=== PATIENT | female | born 1930 | race Caucasian/White ===

== ENCOUNTER 2018-03-12 12:05 | Inpatient (IN) ==
--- NOTE | 2018-03-12 12:50 | Emergency Department Note ---
Disposition Clinical Impression: Cellulitis Qualifiers: Site of cellulitis: extremity Site of cellulitis of extremity: upper extremity Laterality: left Qualified Code(s): L03.114 - Cellulitis of left upper limb Disposition: Admitted As Inpatient Condition: Good Referrals: Bekah Ames OVERLAY PLASTICIAN [Advanced Practice Nurse] - Forms: ED Satisfaction Letter Time of Disposition: 14:18 Extremity Problem HPI - General Chief complaint: ED Extremity Problem,Nontraumatic Stated complaint: Left hand cellulitis Time Seen by Provider: 03/12/18 12:09 Source: patient Limitations: no limitations, language barrier - History of Present Illness HPI Narrative: The patient is an 87-year-old female that sustained a fall 2 weeks ago where she fell into a wall, does not remember sustaining any cut. She noticed some swelling the next day which got worse over the next three days when she reported to the ED and was placed on Keflex, and was sent to the wound clinic. The wound clinic placed her on Bactrim, for presumed cellulitis. Yesterday she noted that she had an increase in pain and swelling she describes the pain as a throbbing ache with radiation up to her shoulder, severity of 10 out of 10/90. She states that she was seen by orthopedics this morning who performed an I&D on the swelling on her hand expressed a large amount of purulent fluid, re- dressed her wound and sent her over here to be admitted for IV antibiotics. She endorses some chills, headache that is on and off, some nausea without vomiting, some anorexia, some rhinorrhea with clear discharge she attributes to allergies, and some numbness in her thumb on her right hand that she states is from an earlier injury. She denies any abdominal pain, vomiting, diarrhea or constipation, chest pain, shortness of breath, or dizziness. Pain Scale: 4 - Related Data Home Medications Medication Instructions Recorded Confirmed Anastrozole [Arimidex] 1 mg PO DAILY 10/22/15 03/04/18 Diclofenac Sodium [Voltaren] 75 mg PO DAILY 10/22/15 03/08/18 Sertraline [Zoloft] 150 mg PO DAILY 10/22/15 03/08/18 Simvastatin [Zocor] 20 mg PO HS 10/22/15 03/08/18 amLODIPine [Norvasc] 5 mg PO DAILY 10/22/15 03/08/18 Buspirone HCl [Buspar] 7.5 mg PO BID 03/04/18 03/04/18 Calcium Carbonate/Vitamin D3 1 each PO BID 03/04/18 03/04/18 [Calcium 600 + Vit D Tablet] Cholecalciferol (Vitamin D3) 1,000 unit PO DAILY 03/04/18 03/08/18 [Vitamin D] Donepezil HCl [Aricept] 5 mg PO HS 03/04/18 03/08/18 Previous Rx's Medication Instructions Recorded Cephalexin [Keflex] 500 mg PO BID #14 capsule 02/27/18 Sulfamethoxazole/Trimeth DS 1 each PO BID #14 tablet 03/04/18 [Bactrim DS] Allergies Allergy/AdvReac Type Severity Reaction Status Date / Time No Known Allergies Allergy Verified 03/04/18 12:09 All systems ED: reviewed and negative except as stated. Review of Systems: As Per HPI Constitutional: Reports: chills. Denies: fever Cardiovascular: Denies: chest pain, dyspnea on exertion Respiratory: Denies: cough, dyspnea Gastrointestinal: Reports: nausea. Denies: abdominal pain, vomiting, diarrhea, constipation Neurological: Reports: headache (off and on not presently there) Past Medical History - Past Medical History Medical history: Reports: arthritis, hyperlipidemia, hypertension Psychiatric history: Reports: no psych history RETREAD BUILDER history: Reports: no RETREAD BUILDER history - Social History Smoking Status: Never smoker Smokeless Tobacco Status: No Alcohol use: Reports: none Drug use: Reports: none Physical Exam - General Limitations: no limitations, language barrier General appearance: alert, in no apparent distress - Head Head exam: atraumatic, normocephalic - Eye Eye exam: Present: normal appearance, PERRL - Chest Chest inspection: Present: normal inspection, symmetric chest wall rise - Respiratory Respiratory exam: Present: other (coarse breath sounds in LLL, normal sounds in other lobes) - Cardiovascular Cardiovascular exam: Present: regular rate, irregular rhythm - Abdominal Exam Abdominal exam: Present: soft, Non-Tender. Absent: distention, guarding - Expanded Upper Extremity Exam Forearm/Wrist exam: Present: tenderness (left), swelling (left), erythema (left) , other (left forearm) Hand exam: Present: laceration (3cm laceration with [address] that does not appear to be completely closed or approximated at this time) Neuromotor exam: Normal: fingers 2-5 abduction - Neurological Exam Neurological exam: Present: alert, oriented X3 - Psychiatric Psychiatric exam: Present: normal affect, normal mood Course Course Narrative: Pt has presumed cellulitis that has failed outpatient management and was sent over to be admitted for antibiotics. We will collect blood cultures and perform some basic labs. Additionally, because she has already had two other oral antibiotics, we will start her on vancomycin and plan to admit to the hospitalist for further management. Vital Signs Temperature 99.1 F 03/12/18 12:29 Pulse Rate 98 03/12/18 12:29 Respiratory Rate 18 03/12/18 12:29 Blood Pressure 118/89 03/12/18 12:29 O2 Sat by Pulse Oximetry 97 03/12/18 12:29 Temperature 99.1 F 03/12/18 12:48 Pulse Rate 98 03/12/18 12:48 Respiratory Rate 18 03/12/18 12:48 Blood Pressure 118/89 03/12/18 12:48 O2 Sat by Pulse Oximetry 97 03/12/18 12:48 Oxygen Delivery Oxygen Delivery Room Air Extremity Problem, Nontraumati - MDM Narrative Medical decision making narrative: Pt has failed outpatient management of cellulitis, and while she is not showing any systemic symptoms, her pain is worsening. She has taken two different oral antibiotics without improvement or resolution of her symptoms and will need to IV antibiotics in the hospital. Pt was given an opportunity to ask questions and all of her concerns were addressed. - Medical Records Medical records reviewed: Yes I reviewed the patient's medical records. - Lab Data Lab results reviewed: Yes I reviewed the patient's lab results. Result diagrams: 03/12/18 12:34 03/12/18 12:34 Lab Results 03/12/18 03/12/18 Range/Units 12:34 12:34 WBC 6.9 (4.3-11.1) K/mcL RBC 3.87 (3.82-4.97) M/mcL Hgb 11.5 (11.5-15.4) g/dL Hct 35.8 (35.3-44.9) % MCV 92.5 (83.0-100.0) fL MCH 29.7 (28.0-33.3) pg MCHC 32.1 (31.6-35.5) g/dL RDW 13.5 (11.5-14.5) % Plt Count 196 (140-400) K/mcL MPV 10.9 (9.4-12.4) fL Immature Gran % 0.4 (0-4) % Seg Neutrophils % 81.6 % Lymphocytes % 9.4 % Monocytes % 7.2 % Eosinophils % 1.3 % Basophils % 0.1 % Neutrophils # 5.6 (1.6-8.9) K/mcL Lymphocytes # 0.7 (0.6-4.6) K/mcL Monocytes # 0.5 (0.0-1.3) K/mcL Eosinophils # 0.1 (0.0-0.6) K/mcL Basophils # 0.0 (0.0-0.2) K/mcL Sodium 136 (136-145) mEq/L Potassium 4.0 (3.5-5.1) mEq/L Chloride 104 (98-107) mEq/L Carbon Dioxide 27 (23-29) mEq/L BUN 17 (8-23) mg/dL Creatinine 0.69 (0.60-1.20) mg/dL Est GFR ( Amer) > 60 (> 60) Est GFR (Non-Af Amer) > 60 (> 60) BUN/Creatinine Ratio 25 (6-26) Glucose 122 H (70-105) mg/dL Calculated Osmolality 285 (280-300) Calcium 9.3 (8.6-10.3) mg/dL
[2018-03-12 13:03] LABS: Eosinophils % 1.3 %; Hematocrit 35.8 % (35.3-44.9); Hemoglobin 11.5 g/dL (11.5-15.4); Immature Granulocytes % 0.4 % (0-4); Lymphocytes % 9.4 %; Mean Corpuscular HGB Conc 32.1 g/dL (31.6-35.5); Mean Corpuscular Hemoglobin 29.7 pg (28.0-33.3); Mean Corpuscular Volume 92.5 fL (83.0-100.0); Mean Platelet Volume 10.9 fL (9.4-12.4); Monocytes % 7.2 %; Platelet Count 196 K/mcL (140-400); Red Blood Count 3.87 M/mcL (3.82-4.97); Red Cell Distribution Width 13.5 % (11.5-14.5); Segmented Neutrophils % 81.6 %
[2018-03-12 13:04] LABS: Basophils % 0.1 %; Eosinophils # 0.1 K/mcL (0.0-0.6); Lymphocytes # 0.7 K/mcL (0.6-4.6); Monocytes # 0.5 K/mcL (0.0-1.3); Neutrophils # 5.6 K/mcL (1.6-8.9)
[2018-03-12 13:10] LABS: BUN/Creatinine Ratio 25 (6-26); Blood Urea Nitrogen 17 mg/dL (8-23); Calcium 9.3 mg/dL (8.6-10.3); Carbon Dioxide 27 mEq/L (23-29); Chloride 104 mEq/L (98-107); Glucose 122 mg/dL (70-105); Osmolality,Calculated 285 (280-300); Sodium 136 mEq/L (136-145); eGFR For Non-African Americans > 60 (> 60)
[2018-03-12] MEDS ORDERED: *HR* OxyCODONE/APAP 5/325 TABLET PO ONE (13:23)
[2018-03-12] MEDS ORDERED: *HR* FentaNYL (PF) 100 MCG/2 ML VIAL IVP ONE (13:23)
--- NOTE | 2018-03-12 13:58 | Emergency Department Note ---
Disposition Clinical Impression: Cellulitis Disposition: Admitted As Inpatient Condition: Good General Adult HPI - General Chief complaint: ED Extremity Problem,Nontraumatic Stated complaint: Left hand cellulitis Time Seen by Provider: 03/12/18 12:09 Source: patient Limitations: no limitations, language barrier Nursing Notes Reviewed: Yes Vital Signs Reviewed: Yes - History of Present Illness Pain Scale: 4 - Related Data Home Medications Medication Instructions Recorded Confirmed Anastrozole [Arimidex] 1 mg PO DAILY 10/22/15 03/12/18 Diclofenac Sodium [Voltaren] 75 mg PO BID 10/22/15 03/12/18 Sertraline [Zoloft] 150 mg PO DAILY 10/22/15 03/12/18 Simvastatin [Zocor] 20 mg PO HS 10/22/15 03/12/18 amLODIPine [Norvasc] 5 mg PO DAILY 10/22/15 03/12/18 Buspirone HCl [Buspar] 7.5 mg PO BID 03/04/18 03/12/18 Calcium Carbonate/Vitamin D3 1 each PO BID 03/04/18 03/12/18 [Calcium 600 + Vit D Tablet] Cholecalciferol (Vitamin D3) 1,000 unit PO DAILY 03/04/18 03/12/18 [Vitamin D] Donepezil HCl [Aricept] 5 mg PO HS 03/04/18 03/12/18 Alendronate Sodium [Fosamax] 70 mg PO QWEEK 03/12/18 03/12/18 HYDROcodone/Acet 7.5/325 mg [[place] 1 tab PO BID 03/12/18 03/12/18 7.5-325 mg] Latanoprost [Xalatan] 1 drop BOTH EYES HS 03/12/18 03/12/18 Previous Rx's Medication Instructions Recorded Sulfamethoxazole/Trimeth DS 1 each PO BID #14 tablet 03/04/18 [Bactrim DS] Allergies Allergy/AdvReac Type Severity Reaction Status Date / Time No Known Allergies Allergy Verified 03/04/18 12:09 Constitutional: Reports: chills. Denies: fever Cardiovascular: Denies: chest pain, dyspnea on exertion Respiratory: Denies: cough, dyspnea Gastrointestinal: Reports: nausea. Denies: abdominal pain, vomiting, diarrhea, constipation Neurological: Reports: headache (off and on not presently there) Past Medical History - Past Medical History Medical history: Reports: arthritis, hyperlipidemia, hypertension Psychiatric history: Reports: no psych history WEBBING SE[employer] history: Reports: no WE[employer] history - Social History Smoking Status: Never smoker Smokeless Tobacco Status: No Alcohol use: Reports: none Drug use: Reports: none Physical Exam - General Limitations: no limitations, language barrier General appearance: alert, in no apparent distress Course Vital Signs Temperature 99.1 F 03/12/18 12:29 Pulse Rate 98 03/12/18 12:29 Respiratory Rate 18 03/12/18 12:29 Blood Pressure 118/89 03/12/18 12:29 O2 Sat by Pulse Oximetry 97 03/12/18 12:29 Temperature 98.9 F 03/12/18 18:44 Pulse Rate 81 03/12/18 18:44 Respiratory Rate 16 03/12/18 18:44 Blood Pressure 137/53 03/12/18 18:44 O2 Sat by Pulse Oximetry 93 03/12/18 18:44 Oxygen Delivery Oxygen Delivery Room Air Medical Decision Making - Lab Data Result diagrams: 03/12/18 12:34 03/12/18 12:34 Lab Results 03/12/18 03/12/18 Range/Units 12:34 12:34 WBC 6.9 (4.3-11.1) K/mcL RBC 3.87 (3.82-4.97) M/mcL Hgb 11.5 (11.5-15.4) g/dL Hct 35.8 (35.3-44.9) % MCV 92.5 (83.0-100.0) fL MCH 29.7 (28.0-33.3) pg MCHC 32.1 (31.6-35.5) g/dL RDW 13.5 (11.5-14.5) % Plt Count 196 (140-400) K/mcL MPV 10.9 (9.4-12.4) fL Immature Gran % 0.4 (0-4) % Seg Neutrophils % 81.6 % Lymphocytes % 9.4 % Monocytes % 7.2 % Eosinophils % 1.3 % Basophils % 0.1 % Neutrophils # 5.6 (1.6-8.9) K/mcL Lymphocytes # 0.7 (0.6-4.6) K/mcL Monocytes # 0.5 (0.0-1.3) K/mcL Eosinophils # 0.1 (0.0-0.6) K/mcL Basophils # 0.0 (0.0-0.2) K/mcL Sodium 136 (136-145) mEq/L Potassium 4.0 (3.5-5.1) mEq/L Chloride 104 (98-107) mEq/L Carbon Dioxide 27 (23-29) mEq/L BUN 17 (8-23) mg/dL Creatinine 0.69 (0.60-1.20) mg/dL Est GFR ( Amer) > 60 (> 60) Est GFR (Non-Af Amer) > 60 (> 60) BUN/Creatinine Ratio 25 (6-26) Glucose 122 H (70-105) mg/dL Calculated Osmolality 285 (280-300) Calcium 9.3 (8.6-10.3) mg/dL Attestation Statement - Attestation Attestation: This documentation is done with the assistance of Dragon dictation. Despite efforts made to ensure accuracy, there may be inaccuracies in sports physician or spelling and typographical errors. I examined this patient and my medical decision-making was reviewed with the Resident Physician. I agree with the documented findings, disposition and treatment plan as described except to the extent set forth below. Patient was sent over from Dr. Ribeiro's office, orthopedics, secondary to an I&D of a healing wound. Patient had an abrasion to the area got infected was on Keflex and Bactrim and failed those. No fevers today note cellulitis here they wanted her started on IV antibiotics and admitted. We started her on IV vancomycin after getting cultures and labs. Hospitalist as accepted with orthopedics consulting.
--- NOTE | 2018-03-12 16:39 | Internal Med History&Physical ---
Date of Encounter: 03/12/18 Time of Encounter: 11:00 Internal Medicine - H&P: HPI Chief complaint: Left hand swelling/cellulitis Admitted From: Home History of present illness: Patient is an 87-year-old female with past medical history significant for breast cancer, hypertension and mood disorder who presents to the ER on 03/12/18 due to nonhealing left hand cellulitis. She reports that after sustaining a fall 2 weeks ago, she noticed left hand swelling in addition to pain and was evaluated at the [place] ER. Patient was given Keflex but reported of no improvement so return to the [place] ER and was given Bactrim. Patient states that swelling continued to worsen and began to extend up her left forearm so she decided to come to [facility] ER for evaluation. In the ER, labs are unremarkable and vital signs stable but on exam patient does have left hand edema with erythematous and swelling extending up the distal part of her left forearm. Patient was started on IV vancomycin in the ER and will be admitted to medical surgical floor for further management. Past Med Surg Social Fam HX - Past Medical History Medical history: arthritis, hyperlipidemia, hypertension Psychiatric history: no psych history - Past Surgical History Additional surgical history: Bilat knee replacement, appendectomy, R partial masectomy - Social History Smoking Status: Never smoker Smokeless Tobacco Status: No Alcohol use: none Drug use: none - Additional Family History Additional family history: Noncontributory Internal Medicine - H&P: Meds Anastrozole [Arimidex] 1 mg PO DAILY 10/22/15 [History] Diclofenac Sodium [Voltaren] 75 mg PO BID 10/22/15 [History] Sertraline [Zoloft] 150 mg PO DAILY 10/22/15 [History] Simvastatin [Zocor] 20 mg PO HS 10/22/15 [History] amLODIPine [Norvasc] 5 mg PO DAILY 10/22/15 [History] Buspirone HCl [Buspar] 7.5 mg PO BID 03/04/18 [History] Calcium Carbonate/Vitamin D3 [Calcium 600 + Vit D Tablet] 1 each PO BID [History] Cholecalciferol (Vitamin D3) [Vitamin D] 1,000 unit PO DAILY 03/04/18 [History] Donepezil HCl [Aricept] 5 mg PO HS 03/04/18 [History] Sulfamethoxazole/Trimeth DS [Bactrim DS] 1 each PO BID #14 tablet 03/04/18 [Rx] Alendronate Sodium [Fosamax] 70 mg PO QWEEK 03/12/18 [History] HYDROcodone/Acet 7.5/325 mg [[place] 7.5-325 mg] 1 tab PO BID 03/12/18 [History] Latanoprost [Xalatan] 1 drop BOTH EYES HS 03/12/18 [History] 3 Allergy/AdvReac Type Severity Reaction Status Date / Time No Known Allergies Allergy Verified 03/04/18 12:09 All Systems PM: A 10-system review of systems was performed and is negative for pertinent findings except as documented above in the HPI. - Constitutional Vitals: Temp Pulse Resp BP Pulse Ox 97.9 F 75 15 132/69 93 03/12/18 15:32 03/12/18 15:32 03/12/18 15:32 03/12/18 15:32 03/12/18 15:32 General appearance: Present: A&O X 3, no acute distress Exam: As above - Eye Eye exam: Present: normal appearance - ENT ENT exam: Present: mucous membranes moist - Respiratory Respiratory exam: Present: CTAB. Absent: accessory muscle use, rales, rhonchi, wheezes - Cardiovascular Cardiovascular exam: Present: RRR, +S1, +S2. Absent: diastolic murmur, gallop, rubs, systolic murmur - GI/Abdominal GI/Abdominal exam: Present: normal bowel sounds, soft, no peritoneal signs. Absent: distended, tenderness - Extremities Exam Extremities exam: Absent: pedal edema - Neurological Exam Neurological exam: Present: oriented X3 - Psychiatric Psychiatric exam: Present: normal mood - Skin Skin exam: Present: normal color Internal Med - H&P Results - Labs CBC & Chem 7: 03/12/18 12:34 03/12/18 12:34 - Assessment and plan (1) Cellulitis Current Visit: Yes Status: Acute Assessment and plan: Patient with a two-week history of left hand cellulitis and edema which has now spread to her left distal forearm. Patient has failed outpatient Bactrim and Keflex Will continue IV vancomycin started in the ER Will consult job training specialist for concerns of tendon involvement of infection. Qualifiers: Site of cellulitis: extremity Site of cellulitis of extremity: upper extremity Laterality: left Qualified Code(s): L03.114 - Cellulitis of left upper limb (2) HTN (hypertension) Current Visit: Yes Status: Acute Assessment and plan: Blood pressure controlled; continue home dose of calcium channel danish Qualifiers: Hypertension type: essential hypertension Qualified Code(s): I10 - Essential (primary) hypertension (3) Mood disorder Current Visit: Yes Status: Acute Assessment and plan: Continue home medications (4) DVT prophylaxis Current Visit: Yes Status: Acute Assessment and plan: Lovenox subcutaneous - Time Spent With Patient Total time spent is greater than 50% in coordination of care (as documented) at patient's floor/unit and/or counseling patient:
[2018-03-12] MEDS ORDERED: Naloxone 0.4 MG/ML INJ IVP PRN (16:55)
[2018-03-12] MEDS ORDERED: Acetaminophen 325 MG TABLET PO PRN (20:25)
--- NOTE | 2018-03-12 21:05 | Orthopedic Consult Note ---
Date of Encounter: 03/12/18 Time of Encounter: 17:00 Assessment and Plan (1) Cellulitis Current Visit: Yes Status: Acute Left dorsal hand/wrist cellulitis with wound drainage of the left hand. Daily local wound care with dressing changes and peroxide soaks. Cultures were obtained in the office. Will follow. IV abx per the primary team. Will follow with you clinically. No plans for operative I and D at this time. ROM exercises of the left hand. Elevation. Will possibly need small finger extensor tendon reconstruction after clearance of infection. Qualifiers: Site of cellulitis: extremity Site of cellulitis of extremity: upper extremity Laterality: left Qualified Code(s): L03.114 - Cellulitis of left upper limb History of Present Illness HPI: Ms. Burger is a 87 year old female who was seen previously in the office early today. She developed hand cellulitis after a fall two weeks ago in which she injured the left hand. X-rays were negative but on exam she developed a 1 cm skin tear/ulceration which was draining pus. Cultures were obtained and the area was spread open and extended proximally and distally in the office about 5 mm each. The small finger extensor tendon was found to be ruptured and degenerated by the infection and was debrided back to healthy margins. Due to cellulitis extending into the distal dorsal forearm despite two courses of oral antibiotics, she was sent to the ED and admitted to the hospitalist and is currently receiving IV abx. She has isolated achy pain to the dorsal hand and wrist. No numbness, tingling, or any other associated signs or symptoms. No modifying factors otherwise. Past Med Surg Social Fam HX - Past Medical History Medical history: arthritis, hyperlipidemia, hypertension Psychiatric history: no psych history - Past Surgical History Additional surgical history: Bilat knee replacement, appendectomy, R partial masectomy - Social History Smoking Status: Never smoker Smokeless Tobacco Status: No Alcohol use: none Drug use: none - Family History Mother Age: 106 Family Member Ethnicity: Non- Living Status: Still Living Hx Family Cardiac Disorders: Yes (angina) Hx Family Cancer: Yes (breast) Father Living Status: Age at : 62 Cause of : prostate cancer Hx Family Cardiac Disorders: Yes Medications and Allergies Anastrozole [Arimidex] 1 mg PO DAILY 10/22/15 [History] Diclofenac Sodium [Voltaren] 75 mg PO BID 10/22/15 [History] Sertraline [Zoloft] 150 mg PO DAILY 10/22/15 [History] Simvastatin [Zocor] 20 mg PO HS 10/22/15 [History] amLODIPine [Norvasc] 5 mg PO DAILY 10/22/15 [History] Buspirone HCl [Buspar] 7.5 mg PO BID 03/04/18 [History] Calcium Carbonate/Vitamin D3 [Calcium 600 + Vit D Tablet] 1 each PO BID [History] Cholecalciferol (Vitamin D3) [Vitamin D] 1,000 unit PO DAILY 03/04/18 [History] Donepezil HCl [Aricept] 5 mg PO HS 03/04/18 [History] Sulfamethoxazole/Trimeth DS [Bactrim DS] 1 each PO BID #14 tablet 03/04/18 [Rx] Alendronate Sodium [Fosamax] 70 mg PO QWEEK 03/12/18 [History] HYDROcodone/Acet 7.5/325 mg [[place] 7.5-325 mg] 1 tab PO BID 03/12/18 [History] Latanoprost [Xalatan] 1 drop BOTH EYES HS 03/12/18 [History] 3 Allergy/AdvReac Type Severity Reaction Status Date / Time No Known Allergies Allergy Verified 03/04/18 12:09 All Systems Reviewed: Constitutional and musculoskeletal systems were reviewed and are negative unless otherwise stated in the HPI Physical Exam - Constitutional Vitals: Temp Pulse Resp BP Pulse Ox 98.9 F 81 16 137/53 93 03/12/18 18:44 03/12/18 18:44 03/12/18 18:44 03/12/18 18:44 03/12/18 18:44 CONSTITUTIONAL: Vitals reviewed Alert and oriented x 3 Pleasant mood Well developed and well nourished Well groomed LEFT UPPER EXTREMITY: Left upper extremity is evaluated and the I and D site has no further purulent drainage. It is located on the hand dorsum over the mid 5th ray. There is cellulitis extending into the proximal dorsal distal forearm/wrist area with edema and induration. No fluctuance. Moderate tenderness of the dorsal hand and wrist area. Full motion of the elbow, and wrist motion is nearly full with pain at the extremes. Limited digital motion due to pain and mild dorsal hand swelling. She can grossly flex and extend the digits, extend the thumb, cross the index and long fingers, and make an okay sign. The fingertips are grossly sensate and well perfused. 2+ radial artery pulse. Results - Labs Result Diagrams: 03/12/18 12:34 03/12/18 12:34 Labs: Abnormal lab results Glucose 122 mg/dL (70-105) H 03/12/18 12:34 All other labs normal. Consult Discharge Plan - Plan Referrals: Bekah Ames WELL DIGGER [Primary Care Provider] -
[2018-03-12] MEDS: traMADol 50 MG TABLET PO PRN (23:15)
[2018-03-13 05:29] LABS: Basophils % 0.2 %; Eosinophils # 0.1 K/mcL (0.0-0.6); Eosinophils % 2.2 %; Hematocrit 33.3 % (35.3-44.9); Hemoglobin 10.8 g/dL (11.5-15.4); Immature Granulocytes % 0.3 % (0-4); Lymphocytes # 0.6 K/mcL (0.6-4.6); Lymphocytes % 10.1 %; Mean Corpuscular HGB Conc 32.4 g/dL (31.6-35.5); Mean Corpuscular Hemoglobin 29.7 pg (28.0-33.3); Mean Corpuscular Volume 91.5 fL (83.0-100.0); Mean Platelet Volume 11.2 fL (9.4-12.4); Monocytes # 0.5 K/mcL (0.0-1.3); Monocytes % 7.9 %; Platelet Count 184 K/mcL (140-400); Red Blood Count 3.64 M/mcL (3.82-4.97); Red Cell Distribution Width 13.7 % (11.5-14.5); Segmented Neutrophils % 79.3 %
[2018-03-13] MEDS: *HR* Enoxaparin 40 MG/0.4 ML SYRINGE SQ SCH (05:48)
[2018-03-13 05:52] LABS: BUN/Creatinine Ratio 23 (6-26); Blood Urea Nitrogen 12 mg/dL (8-23); Calcium 8.6 mg/dL (8.6-10.3); Carbon Dioxide 24 mEq/L (23-29); Chloride 105 mEq/L (98-107); Glucose 109 mg/dL (70-105); Osmolality,Calculated 282 (280-300); Potassium 4.2 mEq/L (3.5-5.1); Sodium 136 mEq/L (136-145); eGFR For Non-African Americans > 60 (> 60)
--- NOTE | 2018-03-13 07:14 | Orthopedics Progress Note ---
Date of Encounter: 03/13/18 Time of Encounter: 07:11 - Assessment and Plan (1) Cellulitis Current Visit: Yes Status: Acute Qualifiers: Site of cellulitis: extremity Site of cellulitis of extremity: upper extremity Laterality: left Qualified Code(s): L03.114 - Cellulitis of left upper limb Subjective Interval history: S: Resting comfortably in bed. Expected pain to the dorsum of the left wrist O: Afebrile on the vital signs are stable Mild serosanguineous drainage from the I&D site Moderate edema and cellulitis at the distal dorsal forearm region Cultures from the office yesterday are still pending She can grossly flex and extend the digits with some limitation due to pain and there is an extensor lag of the small finger as expected The fingertips are all grossly sensate and well-perfused, and the radial artery pulse is 2+. A: Post office I&D of the left dorsal hand P: Continue IV antibiotics per the primary team Consider possible gram-negative coverage Daily local wound care Elevate left upper extremity Motion exercises to reduce the risk of stiffness Objective Vital signs: Vital Signs Temp Pulse Resp BP Pulse Ox 03/13/18 06:44 99.3 F 84 15 148/76 92 03/13/18 03:08 98.8 F 83 16 110/58 95 03/12/18 23:25 99.8 F H 81 16 148/73 94 03/12/18 18:44 98.9 F 81 16 137/53 93 Intake and Output 03/12/18 03/12/18 03/13/18 15:59 23:59 07:59 Intake Total 120 / 120 Balance 120 / 120 Intake: Oral 120 / 120 Other: Meal Dinner Percent of Meal Consumed 100% # Voids 1 # Bowel Movements 1 Weight 72.6 kg Patient Weight 03/13/18 23:59 Weight 72.6 kg - Labs CBC & BMP: 03/13/18 04:02 03/13/18 04:02 Labs: Abnormal lab results RBC 3.64 M/mcL (3.82-4.97) L 03/13/18 04:02 Hgb 10.8 g/dL (11.5-15.4) L 03/13/18 04:02 Hct 33.3 % (35.3-44.9) L 03/13/18 04:02 Creatinine 0.53 mg/dL (0.60-1.20) L 03/13/18 04:02 Glucose 109 mg/dL (70-105) H 03/13/18 04:02 Consult Discharge Plan - Plan Referrals: Bekah Ames, JUDITH [Primary Care Provider] -
[2018-03-13] MEDS ORDERED: *HR* HYDROcodone/Acet 7.5/325 mg TABLET PO PRN (07:28)
[2018-03-13] MEDS: Anastrozole 1 MG TABLET PO SCH (08:29)
[2018-03-13] MEDS: amLODIPine 5 MG TABLET PO SCH (08:30)
[2018-03-13] MEDS: cefTRIAXone 1,000 MG in Water for inj. (sterile) 20 ML 10 ML IVP SCH (08:41)
--- NOTE | 2018-03-13 09:13 | Internal Med Progress Note ---
Hospitalist Progress Note - Encounter Date of Encounter: 03/13/18 Time of Encounter: 09:10 - Subjective Interval History: Seen and examined at bedside today, no acute changes overnight. Continuing to endorse left upper extremity pain but reports swelling is improving. Diminished range of motion in LUE - Exam Vitals: Temp Pulse Resp BP Pulse Ox 99.3 F 84 15 148/76 92 03/13/18 06:44 03/13/18 06:44 03/13/18 06:44 03/13/18 06:44 03/13/18 06:44 Exam: PHYSICAL EXAMINATION: GENERAL: The patient is an elderly female who is in no apparent distress, a and O 3. HEENT: Head is normocephalic and atraumatic. Extraocular muscles are intact. Pupils are equal, round, and reactive to light and accommodation. Nares appeared normal. Mouth is well hydrated and without lesions. Mucous membranes are moist. Posterior pharynx clear of any exudate or lesions. NECK: Supple. No carotid bruits. No lymphadenopathy or thyromegaly. LUNGS: Clear to auscultation. HEART: Regular rate and rhythm, S1, S2 with grade 1 systolic murmur, no rubs or gallops noted. ABDOMEN: Soft, nontender, and nondistended. Positive bowel sounds. No hepatosplenomegaly was noted. EXTREMITIES: Left upper extremity edema, and erythema extending to the left hand and left distal forearm. Healing incision on left hand status post I&D without drainage. Left upper extremity is warm to palpation, adequate circulation radial and ulnar pulses 2+ palpable, limited range of motion NEUROLOGIC: Cranial nerves II through XII are grossly intact. SKIN: As above - Assessment and Plan (1) Cellulitis Current Visit: Yes Status: Acute Assessment and Plan: Patient with a two-week history of left hand cellulitis and edema which has now spread to her left distal forearm Patient has failed outpatient treatment with Bactrim and Keflex Continue IV vancomycin, Add. Daily Rocephin Ortho seeing in consultation Exam today reveals erythema, and swelling, no drainage at site of I&D Circulation palpable 2+ radial and Ulnar pulses, fingers pink with brisk cap refill, diminished ROM Remains afebrile, no leukocytosis; does not appear toxic daily labs (2) Mood disorder Current Visit: Yes Status: Acute Assessment and Plan: per hx calm and cooperative, does not appear anxious Continue home medications (3) HTN (hypertension) Current Visit: Yes Status: Acute Assessment and Plan: Per hx Blood pressure controlled continue home anti-HTN meds (4) DVT prophylaxis Current Visit: Yes Status: Acute Assessment and Plan: Lovenox SC - Time Spent with Patient Total time spent is greater than 50% in coordination of care (as documented) at patient's floor/unit and/or counseling patient: less than 15 minutes Plan of Care Discussed with: patient Internal Medicine: Result - Labs CBC & Chem 7: 03/13/18 04:02 03/13/18 04:02 Labs: Short CBC 03/13/18 Range/Units 04:02 WBC 6.2 (4.3-11.1) K/mcL Hgb 10.8 L (11.5-15.4) g/dL Hct 33.3 L (35.3-44.9) % Plt Count 184 (140-400) K/mcL Neutrophils # 5.0 (1.6-8.9) K/mcL BMP 03/13/18 04:02 Sodium 136 Potassium 4.2 Chloride 105 Carbon Dioxide 24 BUN 12 Creatinine 0.53 L Glucose 109 H Calcium 8.6 Consult Discharge Plan - Plan Referrals: Bekah Ames, COMBAT INFORMATION CENTER OFFICER [Primary Care Provider] - (1) Cellulitis Qualifiers: Site of cellulitis: extremity Site of cellulitis of extremity: upper extremity Laterality: left Qualified Code(s): L03.114 - Cellulitis of left upper limb (3) HTN (hypertension) Qualifiers: Hypertension type: essential hypertension Qualified Code(s): I10 - Essential (primary) hypertension
[2018-03-13] MEDS: Diclofenac Sodium 75 MG TABLET PO SCH ×2 (10:11→21:16)
[2018-03-13] MEDS: *HR* OxyCODONE/APAP 5/325 TABLET PO PRN ×3 (10:19→23:47)
[2018-03-13] MEDS: traMADol 50 MG TABLET PO PRN (21:16)
[2018-03-14 04:41] LABS: Basophils % 0.2 %; Eosinophils # 0.2 K/mcL (0.0-0.6); Eosinophils % 3.7 %; Hematocrit 36.1 % (35.3-44.9); Hemoglobin 11.4 g/dL (11.5-15.4); Immature Granulocytes % 0.3 % (0-4); Lymphocytes # 0.6 K/mcL (0.6-4.6); Lymphocytes % 10.7 %; Mean Corpuscular HGB Conc 31.6 g/dL (31.6-35.5); Mean Corpuscular Hemoglobin 29.6 pg (28.0-33.3); Mean Corpuscular Volume 93.8 fL (83.0-100.0); Mean Platelet Volume 10.6 fL (9.4-12.4); Monocytes # 0.4 K/mcL (0.0-1.3); Monocytes % 6.9 %; Neutrophils # 4.6 K/mcL (1.6-8.9); Platelet Count 188 K/mcL (140-400); Red Blood Count 3.85 M/mcL (3.82-4.97); Red Cell Distribution Width 13.4 % (11.5-14.5); Segmented Neutrophils % 78.2 %
[2018-03-14 05:01] LABS: BUN/Creatinine Ratio 28 (6-26); Blood Urea Nitrogen 12 mg/dL (8-23); Calcium 8.7 mg/dL (8.6-10.3); Carbon Dioxide 26 mEq/L (23-29); Chloride 105 mEq/L (98-107); Glucose 108 mg/dL (70-105); Osmolality,Calculated 284 (280-300); Potassium 4.3 mEq/L (3.5-5.1); Sodium 137 mEq/L (136-145); eGFR For Non-African Americans > 60 (> 60)
[2018-03-14] MEDS: *HR* Enoxaparin 40 MG/0.4 ML SYRINGE SQ SCH (06:53)
[2018-03-14] MEDS: *HR* OxyCODONE/APAP 5/325 TABLET PO PRN ×2 (06:53→13:07)
[2018-03-14] MEDS ORDERED: Gadolinium Contrast Agent (WT Based) IV PRN (07:36)
--- NOTE | 2018-03-14 07:41 | Orthopedics Progress Note ---
Date of Encounter: 03/14/18 Time of Encounter: 07:40 - Assessment and Plan (1) Cellulitis Current Visit: Yes Status: Acute Qualifiers: Site of cellulitis: extremity Site of cellulitis of extremity: upper extremity Laterality: left Qualified Code(s): L03.114 - Cellulitis of left upper limb Subjective Interval history: S: Resting comfortably in bed. Expected pain to the dorsum of the left wrist O: Afebrile on the vital signs are stable Mild serosanguineous drainage from the I&D site Persistent moderate edema and cellulitis at the distal dorsal forearm region No growth from I and D site for last 24 hours. She can grossly flex and extend the digits with some limitation due to pain and there is an extensor lag of the small finger as expected The fingertips are all grossly sensate and well-perfused, and the radial artery pulse is 2+. A: Post office I&D of the left dorsal hand P: Due to persistent swelling/tenderness/redness/induration after >24 hours IV abx , will order MRI of the left wrist to rule out abscess Continue IV antibiotics per the primary team Daily local wound care Elevate left upper extremity Motion exercises to reduce the risk of stiffness Objective Vital signs: Vital Signs Temp Pulse Resp BP Pulse Ox 03/13/18 23:59 99.3 F 78 16 134/70 91 03/13/18 18:40 98.9 F 83 16 141/74 93 03/13/18 15:22 98.8 F 51 15 120/57 92 03/13/18 11:20 98.3 F 71 15 117/64 96 Intake and Output 03/13/18 03/13/18 03/14/18 15:59 23:59 07:59 Intake Total 360 / 360 510 / 510 Balance 360 / 360 510 / 510 Intake: IV Fluids 510 / 510 Rocephin 1,000 MG In Water for inj. (sterile) 10 ML @ 600 mls/ hr IVP DAILY [facility] Rx#:[id number] Vancocin 1,250 MG In 0.9 % 250 / 250 Sodium Chloride 250 ML @ 166.67 mls/hr IVPB Q24H [facility] Rx#: [id number] Oral 360 / 360 Other: Meal Breakfast Percent of Meal Consumed 80% - Labs CBC & BMP: 03/14/18 04:22 03/14/18 04:22 Labs: Abnormal lab results Hgb 11.4 g/dL (11.5-15.4) L 03/14/18 04:22 Creatinine 0.43 mg/dL (0.60-1.20) L 03/14/18 04:22 BUN/Creatinine Ratio 28 (6-26) H 03/14/18 04:22 Glucose 108 mg/dL (70-105) H 03/14/18 04:22 Consult Discharge Plan - Plan Referrals: Bekah Ames CNP [Primary Care Provider] -
[2018-03-14] MEDS: cefTRIAXone 1,000 MG in Water for inj. (sterile) 20 ML 10 ML IVP SCH (08:06)
[2018-03-14] MEDS: amLODIPine 5 MG TABLET PO SCH (08:07)
[2018-03-14] MEDS: Anastrozole 1 MG TABLET PO SCH (08:07)
[2018-03-14] MEDS: Diclofenac Sodium 75 MG TABLET PO SCH ×2 (08:07→20:06)
--- NOTE | 2018-03-14 09:00 | Internal Med Progress Note ---
Hospitalist Progress Note - Encounter Date of Encounter: 03/14/18 Time of Encounter: 08:55 - Subjective Interval History: Seen and examined at bedside today, no acute changes overnight. Continuing to endorse left upper extremity pain, swelling persistent. Diminished range of motion in LUE is persistent - Exam Vitals: Temp Pulse Resp BP Pulse Ox 98.0 F 63 16 117/69 94 03/14/18 07:37 03/14/18 07:37 03/14/18 07:37 03/14/18 07:37 03/14/18 07:37 Exam: PHYSICAL EXAMINATION: GENERAL: The patient is an elderly female who is in no apparent distress, a and O 3. HEENT: Head is normocephalic and atraumatic. Extraocular muscles are intact. Pupils are equal, round, and reactive to light and accommodation. Nares appeared normal. Mouth is well hydrated and without lesions. Mucous membranes are moist. Posterior pharynx clear of any exudate or lesions. NECK: Supple. No carotid bruits. No lymphadenopathy or thyromegaly. LUNGS: Clear to auscultation B/L AP&L. HEART: Regular rate and rhythm, S1, S2 with grade 1 systolic murmur, no rubs or gallops noted. ABDOMEN: Soft, nontender, and nondistended. Positive bowel sounds. No hepatosplenomegaly was noted. EXTREMITIES: Left upper extremity edema stable; no improvement over night. Erythema extending to the left hand and left distal forearm. Healing incision on left hand status post I&D without drainage. Left upper extremity is warm to palpation, adequate circulation radial and ulnar pulses 2+ palpable, limited range of motion NEUROLOGIC: Cranial nerves II through XII are grossly intact. SKIN: As above - Assessment and Plan (1) Cellulitis Current Visit: Yes Status: Acute Assessment and Plan: Patient with a two-week history of left hand cellulitis and edema which has now spread to her left distal forearm Patient has failed outpatient treatment with Bactrim and Keflex Continue IV vancomycin, Add. Daily Rocephin Ortho seeing in consultation Exam today reveals erythema, and swelling, no drainage at site of I&D Circulation palpable 2+ radial and Ulnar pulses, fingers pink with brisk cap refill, diminished ROM Remains afebrile, no leukocytosis; does not appear toxic daily labs 03/14-- Left hand with erythema, no drainage. Stable, but swelling persists. Obtain MRI today to evaluate for possible abscess. Continue ABX, remains afebrile, no leukocytosis. Continue current pain medication regimen. (2) Mood disorder Current Visit: Yes Status: Acute Assessment and Plan: per hx calm and cooperative, does not appear anxious Continue home medications (3) HTN (hypertension) Current Visit: Yes Status: Acute Assessment and Plan: 1- Per hx Blood pressure controlled continue home anti-HTN meds (4) DVT prophylaxis Current Visit: Yes Status: Acute Assessment and Plan: Lovenox SC - Time Spent with Patient Total time spent is greater than 50% in coordination of care (as documented) at patient's floor/unit and/or counseling patient: less than 15 minutes Plan of Care Discussed with: patient Internal Medicine: Result - Labs CBC & Chem 7: 03/14/18 04:22 03/14/18 04:22 Labs: Short CBC 03/14/18 Range/Units 04:22 WBC 5.9 (4.3-11.1) K/mcL Hgb 11.4 L (11.5-15.4) g/dL Hct 36.1 (35.3-44.9) % Plt Count 188 (140-400) K/mcL Neutrophils # 4.6 (1.6-8.9) K/mcL BMP 03/14/18 04:22 Sodium 137 Potassium 4.3 Chloride 105 Carbon Dioxide 26 BUN 12 Creatinine 0.43 L Glucose 108 H Calcium 8.7 Consult Discharge Plan - Plan Referrals: Bekah Ames, NUTRITION REPRESENTATIVE [Primary Care Provider] - (1) Cellulitis Qualifiers: Site of cellulitis: extremity Site of cellulitis of extremity: upper extremity Laterality: left Qualified Code(s): L03.114 - Cellulitis of left upper limb (3) HTN (hypertension) Qualifiers: Hypertension type: essential hypertension Qualified Code(s): I10 - Essential (primary) hypertension
[2018-03-14] MEDS: traMADol 50 MG TABLET PO PRN (16:50)
[2018-03-15] MEDS: *HR* Enoxaparin 40 MG/0.4 ML SYRINGE SQ SCH (05:36)
--- NOTE | 2018-03-15 07:23 | Orthopedics Progress Note ---
Date of Encounter: 03/15/18 Time of Encounter: 07:21 - Assessment and Plan (1) Cellulitis Current Visit: Yes Status: Acute Qualifiers: Site of cellulitis: extremity Site of cellulitis of extremity: upper extremity Laterality: left Qualified Code(s): L03.114 - Cellulitis of left upper limb Subjective Interval history: S: Resting comfortably in bed. Continued pain to the dorsum of the left wrist O: Afebrile on the vital signs are stable Mild purulent drainage from the I&D site Persistent moderate edema and cellulitis at the distal dorsal forearm region She can grossly flex and extend the digits with some limitation due to pain and there is an extensor lag of the small finger as expected The fingertips are all grossly sensate and well-perfused, and the radial artery pulse is 2+. Cultures from office negative p 48 hours. MRI demonstrated siffuse edema, sinus tract with drainage, possible early abscess A: Post office I&D of the left dorsal hand P: Due to persistent swelling/tenderness/redness/induration not improving with IV abx, my recommendation is for formal operative I and D today in the OR, particularly in the area of the distal dorsal/ulnar forearm/wrist area which is proximal to the office I and D site NPO Continue IV antibiotics per the primary team Daily local wound care Elevate left upper extremity Motion exercises to reduce the risk of stiffness Objective Vital signs: Vital Signs Temp Pulse Resp BP Pulse Ox 03/15/18 03:06 99.0 F 92 16 156/87 98 03/14/18 22:51 98 F 76 16 117/64 91 03/14/18 19:03 98.6 F 03/14/18 18:36 100.1 F H 84 16 108/68 91 03/14/18 15:57 98.4 F 91 17 120/67 93 03/14/18 11:52 98.2 F 72 17 119/69 93 03/14/18 07:37 98.0 F 63 16 117/69 94 Intake and Output 03/14/18 03/14/18 03/15/18 15:59 23:59 07:59 Intake Total 250 / 250 250 / 250 Output Total 100 / 100 0 / 0 0 / 0 Balance 150 / 150 250 / 250 0 / 0 Intake: IV Fluids 250 / 250 Rocephin 1,000 MG In Water for inj. (sterile) 10 ML @ 600 mls/ hr IVP DAILY [facility] Rx#:[id number] Vancocin 1,250 MG In 0.9 % 250 / 250 Sodium Chloride 250 ML @ 166.67 mls/hr IVPB Q24H [facility] Rx#: [id number] Oral 240 / 240 Output: Urine 100 / 100 0 / 0 0 / 0 Other: Meal Lunch Percent of Meal Consumed 100% # Voids 1 Weight 75.5 kg Patient Weight 03/15/18 23:59 Weight 75.5 kg - Labs CBC & BMP: 03/14/18 04:22 03/14/18 04:22 Labs: Abnormal lab results Hgb 11.4 g/dL (11.5-15.4) L 03/14/18 04:22 Creatinine 0.43 mg/dL (0.60-1.20) L 03/14/18 04:22 BUN/Creatinine Ratio 28 (6-26) H 03/14/18 04:22 Glucose 108 mg/dL (70-105) H 03/14/18 04:22 Consult Discharge Plan - Plan Referrals: Bekah Ames, WATER RESOURCES BUSINESS SEGMENT LEADER [Primary Care Provider] -
[2018-03-15] MEDS: traMADol 50 MG TABLET PO PRN ×2 (09:20→20:20)
[2018-03-15] MEDS: amLODIPine 5 MG TABLET PO SCH (09:21)
[2018-03-15] MEDS: Anastrozole 1 MG TABLET PO SCH (09:21)
[2018-03-15] MEDS: Diclofenac Sodium 75 MG TABLET PO SCH ×2 (09:21→20:20)
[2018-03-15] MEDS: cefTRIAXone 1,000 MG in Water for inj. (sterile) 20 ML 10 ML IVP SCH (09:22)
--- NOTE | 2018-03-15 14:23 | Internal Med Progress Note ---
Hospitalist Progress Note - Encounter Date of Encounter: 03/15/18 Time of Encounter: 14:16 - Subjective Interval History: Seen and examined at bedside today, no acute changes overnight. Continuing to endorse left upper extremity pain, swelling persists. ROM improving - Exam Vitals: Temp Pulse Resp BP Pulse Ox 97.7 F 82 17 115/63 92 03/15/18 11:57 03/15/18 11:57 03/15/18 11:57 03/15/18 11:57 03/15/18 11:57 Exam: PHYSICAL EXAMINATION: GENERAL: The patient is an elderly female who is in no apparent distress, a and O 3. HEENT: Head is normocephalic and atraumatic. Extraocular muscles are intact. Pupils are equal, round, and reactive to light and accommodation. Nares appeared normal. Mouth is well hydrated and without lesions. Mucous membranes are moist. Posterior pharynx clear of any exudate or lesions. NECK: Supple. No carotid bruits. No lymphadenopathy or thyromegaly. LUNGS: Clear to auscultation B/L AP&L. HEART: Regular rate and rhythm, S1, S2 with grade 1 systolic murmur, no rubs or gallops noted. ABDOMEN: Soft, nontender, and nondistended. Positive bowel sounds. No hepatosplenomegaly was noted. EXTREMITIES: Left upper extremity edema stable; no improvement over night. Erythema extending to the left hand and left distal forearm. Healing incision on left hand status post I&D without drainage. Left upper extremity is warm to palpation, adequate circulation radial and ulnar pulses 2+ palpable, limited range of motion. Lt lateral distal forearm swelling persists NEUROLOGIC: Cranial nerves II through XII are grossly intact. SKIN: As above - Assessment and Plan (1) Cellulitis Current Visit: Yes Status: Acute Assessment and Plan: Patient with a two-week history of left hand cellulitis and edema which has now spread to her left distal forearm Patient has failed outpatient treatment with Bactrim and Keflex Continue IV vancomycin, Add. Daily Rocephin Ortho seeing in consultation Exam today reveals erythema, and swelling, no drainage at site of I&D Circulation palpable 2+ radial and Ulnar pulses, fingers pink with brisk cap refill, diminished ROM Remains afebrile, no leukocytosis; does not appear toxic daily labs 03/14-- Left hand with erythema, no drainage. Stable, but swelling persists. Obtain MRI today to evaluate for possible abscess. Continue ABX, remains afebrile, no leukocytosis. Continue current pain medication regimen. 03/15--Condition stable, distal left lateral forearm swelling persists. MRI wrist obtained yesterday showing extensive edema/inflammation of the wrist dorsum with a sinus tract and soft tissue defect along the ulnar side of the wrist dorsum small foci of fluid however may not be drainable. Orthopedic surgeon see patient at bedside today plan for I&D at bedside. Left distal phalanges with adequate circulation, radial and ulnar pulses 2+ palpable, range of motion improving. (2) Mood disorder Current Visit: Yes Status: Acute Assessment and Plan: per hx calm and cooperative, does not appear anxious Continue home medications (3) HTN (hypertension) Current Visit: Yes Status: Acute Assessment and Plan: Per hx Blood pressure controlled continue home anti-HTN meds (4) DVT prophylaxis Current Visit: Yes Status: Acute Assessment and Plan: Lovenox SC - Time Spent with Patient Total time spent is greater than 50% in coordination of care (as documented) at patient's floor/unit and/or counseling patient: less than 15 minutes Plan of Care Discussed with: patient Internal Medicine: Result - Labs CBC & Chem 7: 03/14/18 04:22 03/14/18 04:22 - Impressions Impressions Wrist MRI 03/14/18 07:36 IMPRESSION: 1. Extensive edema/inflammation of the wrist dorsum with a sinus track and soft tissue defect along the ulnar side of the wrist dorsum. Small subcentimeter foci of fluid within the wrist dorsum soft tissue may represent early abscess formation. At this time, there is no identifiable drainable fluid collection. 2. No evidence of osteomyelitis. 3. 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 D/ / 03/14/2018 13:01:21 Ang Fleming MD / janet Interpreting Provider: Ang Fleming MD Consult Discharge Plan - Plan Referrals: Bekah Ames, DERRICK WORKER [Primary Care Provider] - (1) Cellulitis Qualifiers: Site of cellulitis: extremity Site of cellulitis of extremity: upper extremity Laterality: left Qualified Code(s): L03.114 - Cellulitis of left upper limb (3) HTN (hypertension) Qualifiers: Hypertension type: essential hypertension Qualified Code(s): I10 - Essential (primary) hypertension
[2018-03-15 14:32] LABS: BUN/Creatinine Ratio 28 (6-26); Blood Urea Nitrogen 11 mg/dL (8-23); eGFR For Non-African Americans > 60 (> 60)
--- NOTE | 2018-03-15 16:50 | Anesthesia Evaluation PreOp ---
Date of Encounter: 03/15/18 Time of Encounter: 16:48 - Past History Planned Operation: I & D Left Wrist Cardiac History: HTN, Hyperlipidemia Pulmonary History: Snore, PATRICIA Dx (does not use CPAP) SEAT SCOOPER MACHINE History: Denies Any Significant HX Other Medical History: Other (H/O right breast CA S/P partial mastectomy/XRT) Anesthesia History: No Prior Anesthetic Complications, Past Anesthesia Alcohol Use: none Drug use: none Medications and Allergies Anastrozole [Arimidex] 1 mg PO DAILY 10/22/15 [History] Diclofenac Sodium [Voltaren] 75 mg PO BID 10/22/15 [History] Sertraline [Zoloft] 150 mg PO DAILY 10/22/15 [History] Simvastatin [Zocor] 20 mg PO HS 10/22/15 [History] amLODIPine [Norvasc] 5 mg PO DAILY 10/22/15 [History] Buspirone HCl [Buspar] 7.5 mg PO BID 03/04/18 [History] Calcium Carbonate/Vitamin D3 [Calcium 600 + Vit D Tablet] 1 each PO BID [History] Cholecalciferol (Vitamin D3) [Vitamin D] 1,000 unit PO DAILY 03/04/18 [History] Donepezil HCl [Aricept] 5 mg PO HS 03/04/18 [History] Sulfamethoxazole/Trimeth DS [Bactrim DS] 1 each PO BID #14 tablet 03/04/18 [Rx] Alendronate Sodium [Fosamax] 70 mg PO QWEEK 03/12/18 [History] HYDROcodone/Acet 7.5/325 mg [[place] 7.5-325 mg] 1 tab PO BID 03/12/18 [History] Latanoprost [Xalatan] 1 drop BOTH EYES HS 03/12/18 [History] 3 Allergy/AdvReac Type Severity Reaction Status Date / Time No Known Allergies Allergy Verified 03/04/18 12:09 - Meds/Allergy Pre-op Review Medications Reviewed: Yes Allergies Reviewed: Yes Beta Blockers on Current Med List: No Anesthesia Results - Labs 03/14/18 04:22 03/15/18 13:56 Anesthesia Exam Vital Signs/O2 Sat, Most Current Temp Pulse Resp BP Pulse Ox 98.2 F 70 15 112/69 90 03/15/18 15:41 03/15/18 15:41 03/15/18 15:41 03/15/18 15:41 03/15/18 15:41 Height: 5'3''/1.6 m Weight: 166 lbs/75.5 kg NPO (# of Hours): 8 Pain Scale: 0 Pain Scale Used: Numeric (1 - 10) - HEENT Pupil (Motor): EOMI Mallampati: III Teeth: Normal, Missing Oral Opening: Greater than 3 - SEAT SCOOPER MACHINE LOC: Oriented SEAT SCOOPER MACHINE Motor: Normal RUE, Normal LUE, Normal RLE, Normal LLE, Normal Face SEAT SCOOPER MACHINE Sensory: Normal: RUE, LUE, RLE, LLE, Face - Cardiac Rhythm: Regular Murmur: None - Pulmonary Breath Sounds: bilateral Clear Respiratory Effort: Symmetrical Anesthesia Assess/Plan ASA Score: 3 Modified Hale Scale for Level of Consciousness: Cooperative, oriented, and tranquil Anesthetic Plan: MAC Monitoring Plan: Standard Monitors
[2018-03-15] MEDS ORDERED: Ondansetron 4 MG/2 ML VIAL ONE (16:53)
[2018-03-15] MEDS ORDERED: Lidocaine -MPF 2% 2 ML VIAL ONE (16:53)
[2018-03-15] MEDS ORDERED: *HR* Propofol 200 MG/20 ML VIAL IVP ONE (16:53)
[2018-03-15] MEDS ORDERED: *HR* FentaNYL (PF) 100 MCG/2 ML VIAL ONE ×2 (16:53→19:24)
[2018-03-15] MEDS ORDERED: Bupivacaine/EPI 1:200k 0.5%PF 10 ML VIAL ONE (16:56)
[2018-03-15] MEDS ORDERED: Lidocaine/EPI 1:100k 1% 20 ML VIAL ONE (16:56)
[2018-03-15] MEDS ORDERED: Dexamethasone 4 MG/ML VIAL ONE (17:43)
[2018-03-15] MEDS ORDERED: *HR* Promethazine 25 MG/ML VIAL IVP PRN ×2 (18:10→19:25)
[2018-03-15] MEDS ORDERED: Ondansetron 4 MG/2 ML VIAL IVP ONE ×2 (18:10→19:25)
[2018-03-15] MEDS ORDERED: *HR* Meperidine 25 MG/ML SYRINGE IVP PRN ×2 (18:10→19:25)
[2018-03-15] MEDS ORDERED: Naloxone 0.4 MG/ML INJ IVP PRN ×2 (18:10→19:25)
[2018-03-15] MEDS ORDERED: Albuterol 2.5 MG/3 ML NEBULIZER IH ONE (18:10)
[2018-03-15] MEDS ORDERED: Ringers Solution, Lactated 1,000 ML IVC SCH (18:15)
--- NOTE | 2018-03-15 18:29 | Orthopedic Operative Note ---
Date of procedure: 03/15/18 Procedure: OPERATIVE REPORT SURGEON: Thierno Cee MD PREOPERATIVE DIAGNOSIS: Left dorsal hand and wrist infection POSTOPERATIVE DIAGNOSIS: Same PROCEDURE: Incision, drainage, irrigation, and debridement of the left dorsal hand and wrist infection involving subcutaneous tissue ANESTHESIA: Gen. anesthesia SPECIMENS: Left dorsal wrist swabs for aerobic and anaerobic cultures PREOPERATIVE NOTE The surgical plan was reviewed with the patient. The risks, benefits, alternatives, and potential complications of this procedure were discussed with the patient including injury to veins, arteries, nerves, tendons, ligaments, and bone. Also discussed were the risks of infection, bleeding, pain, blood clots, the possible need for a blood transfusion, the possible need for further procedures, heart attack, stroke, and . Additional risks include persistent infection despite surgery. All of this was explained in simple terms , and the patient verbalized understanding and wished to proceed. Consent was given to proceed with surgery. PROCEDURE: The patient was seen in the preoperative holding area where the identify and the consent were confirmed. The left wrist was marked. Final questions were answered. The patient was brought back to the operating room and placed supine on the operating room table. A huddle was performed with the patient and all vital surgical team members confirming patient identity, the correct procedure, and the correct operative site. Gen. anesthesia was administered. The operative extremity was prepped and draped in the usual sterile fashion. A surgical time out was performed immediately preceding the incision with all personnel in the operating room to confirm patient identity, the correct operative site and extremity, correct radiographic studies, availability of appropriate surgical equipment, and agreement on the planned procedure. The tourniquet was inflated without exsanguination. The stitches from the old I &D site were taken out and purulent material could be milked from the proximal aspect of the wrist and the hand. The I&D site was extended proximally across the dorsal wrist area into the area of maximal cellulitis. The subcutaneous tissue was spread open taking care to protect the dorsal ulnar branch of the ulnar nerve which was identified and protected. Soupy fluid was encountered in the dorsal wrist area which was swabbed for culture and subsequently evacuated. A small amount of necrotic subcutaneous fat was sharply excised. The wound was copiously debrided and irrigated with 3 L of saline. The wound was clean and did not penetrate deep to the fascia. The center portion of the I&D site was loosely closed with interrupted nylon stitches over a Rosey drain. The tourniquet was deflated and a soft, sterile dressing was applied. The instrument, sponge, and needle counts were correct after wound closure. Was there an patient observation assistant present: No Estimated blood loss (cc): 1
[2018-03-15] MEDS: *HR* Morphine 2 MG/ML SYRINGE IVP PRN ×5 (18:46→19:09)
[2018-03-15] MEDS ORDERED: *HR* Morphine 2 MG/ML SYRINGE IVP PRN (19:25)
[2018-03-15] MEDS ORDERED: Gadolinium Contrast Agent (WT Based) IV PRN (19:25)
[2018-03-15] MEDS ORDERED: Acetaminophen 325 MG TABLET PO PRN (19:25)
--- NOTE | 2018-03-15 20:03 | Anesthesia Evaluation Post Op ---
Date of Encounter: 03/15/18 Time of Encounter: 20:02 - Vital Signs Vital Signs: Vital Signs/O2 Sat, Most Current Temp Pulse Resp BP Pulse Ox 98.7 F 90 16 180/99 96 03/15/18 19:14 03/15/18 19:42 03/15/18 19:42 03/15/18 19:42 03/15/18 19:42 - Lungs Lungs: Clear Ascult./Percussion - Airway Airway: Non-obstructed - Cardiovascular Regular Rate - Mental Status Mental Status: Alert & Oriented, Answers Appropriately - Pain Pain Scale used: Numeric (1 - 10) (tolerable) - Nausea Vomiting Nausea Vomiting: Not Present - Hydration Hydration: Ice chips - Discharge PostOp Status: Transfer Patient to floor
[2018-03-15] MEDS: Ringers Solution, Lactated 1,000 ML IVC SCH (20:57)
[2018-03-15] MEDS: *HR* OxyCODONE/APAP 5/325 TABLET PO PRN (23:07)
[2018-03-16] MEDS: *HR* Enoxaparin 40 MG/0.4 ML SYRINGE SQ SCH (05:51)
[2018-03-16] MEDS: Diclofenac Sodium 75 MG TABLET PO SCH ×2 (07:38→20:38)
[2018-03-16] MEDS: amLODIPine 5 MG TABLET PO SCH (07:39)
[2018-03-16] MEDS: traMADol 50 MG TABLET PO PRN ×3 (07:40→23:56)
[2018-03-16] MEDS: Anastrozole 1 MG TABLET PO SCH (07:40)
[2018-03-16] MEDS: cefTRIAXone 1,000 MG in Water for inj. (sterile) 20 ML 10 ML IVP SCH (07:47)
--- NOTE | 2018-03-16 07:53 | Orthopedics Progress Note ---
Date of Encounter: 03/16/18 Time of Encounter: 07:40 - Assessment and Plan (1) Cellulitis Current Visit: Yes Status: Acute Qualifiers: Site of cellulitis: extremity Site of cellulitis of extremity: upper extremity Laterality: left Qualified Code(s): L03.114 - Cellulitis of left upper limb Subjective Interval history: S: Resting comfortably in bed. Pain controlled to the left wrist O: Afebrile on the vital signs are stable Cellulitis improved overnight I and D sites with minimal drainage. She can grossly flex and extend the digits with some limitation due to pain and there is an extensor lag of the small finger as expected The fingertips are all grossly sensate and well-perfused, and the radial artery pulse is 2+. A: Post operative I&D of the left dorsal hand P: Cellulitis improving Continue IV abx Pull drain tomorrow Anticipate switch to PO Abx at that time. Objective Vital signs: Vital Signs Temp Pulse Resp BP Pulse Ox 03/16/18 06:43 98.1 F 81 16 148/81 96 03/16/18 03:08 98.7 F 74 16 142/69 93 03/15/18 23:21 98.4 F 88 16 159/80 90 03/15/18 22:05 98.2 F 93 15 149/75 93 03/15/18 21:05 98.2 F 89 16 160/114 90 03/15/18 20:35 98 F 88 15 181/96 92 03/15/18 20:05 98.1 F 87 15 180/90 92 03/15/18 19:42 90 16 180/99 96 03/15/18 19:29 87 16 97 03/15/18 19:14 98.7 F 82 16 197/89 98 03/15/18 18:59 98.7 F 82 16 192/104 98 03/15/18 18:49 82 16 187/110 97 03/15/18 18:39 84 16 182/114 97 03/15/18 18:29 98.8 F 91 16 206/106 97 03/15/18 15:41 98.2 F 70 15 112/69 90 03/15/18 11:57 97.7 F 82 17 115/63 92 Intake and Output 03/15/18 03/15/18 03/16/18 15:59 23:59 07:59 Output Total 201 / 201 0 / 0 Balance -201 / -201 0 / 0 Output: Urine 200 / 200 0 / 0 Estimated Blood Loss Other: # Voids 1 Weight 76.3 kg Patient Weight 03/16/18 23:59 Weight 76.3 kg - Labs CBC & BMP: 03/14/18 04:22 03/15/18 13:56 Labs: Abnormal lab results Hgb 11.4 g/dL (11.5-15.4) L 03/14/18 04:22 Creatinine 0.39 mg/dL (0.60-1.20) L 03/15/18 13:56 BUN/Creatinine Ratio 28 (6-26) H 03/15/18 13:56 Glucose 108 mg/dL (70-105) H 03/14/18 04:22 Consult Discharge Plan - Plan Referrals: Bekah Ames, [facility] [Primary Care Provider] -
--- NOTE | 2018-03-16 09:14 | Internal Med Progress Note ---
Hospitalist Progress Note - Encounter Date of Encounter: 03/16/18 Time of Encounter: 09:12 - Subjective Interval History: Seen and examined at bedside today, cellulitis improving. - Exam Vitals: Temp Pulse Resp BP Pulse Ox 98.1 F 81 16 148/81 96 03/16/18 06:43 03/16/18 06:43 03/16/18 06:43 03/16/18 06:43 03/16/18 06:43 Exam: PHYSICAL EXAMINATION: GENERAL: The patient is an elderly female who is in no apparent distress, a and O 3. HEENT: Head is normocephalic and atraumatic. Extraocular muscles are intact. Pupils are equal, round, and reactive to light and accommodation. Nares appeared normal. Mouth is well hydrated and without lesions. Mucous membranes are moist. Posterior pharynx clear of any exudate or lesions. NECK: Supple. No carotid bruits. No lymphadenopathy or thyromegaly. LUNGS: Clear to auscultation B/L AP&L. HEART: Regular rate and rhythm, S1, S2 with grade 1 systolic murmur, no rubs or gallops noted. ABDOMEN: Soft, nontender, and nondistended. Positive bowel sounds. No hepatosplenomegaly was noted. EXTREMITIES: Left upper extremity edema stable; swelling improving overnight. S /P I&D to left lateral distal forearm yesterday, cellulitis improving, drain in place. LUE warm to palpation, adequate circulation radial and ulnar pulses 2+ palpable, limited range of motion NEUROLOGIC: Cranial nerves II through XII are grossly intact. SKIN: As above - Assessment and Plan (1) Cellulitis Current Visit: Yes Status: Acute Assessment and Plan: Patient with a two-week history of left hand cellulitis and edema which has now spread to her left distal forearm Patient has failed outpatient treatment with Bactrim and Keflex Continue IV vancomycin, Add. Daily Rocephin Ortho seeing in consultation Exam today reveals erythema, and swelling, no drainage at site of I&D Circulation palpable 2+ radial and Ulnar pulses, fingers pink with brisk cap refill, diminished ROM Remains afebrile, no leukocytosis; does not appear toxic daily labs 03/15--swelling improving S/P I&D distal lateral left forearm. Hand and wrist still erythematous, surgical drain in place. Adequate circulation throughout left forearm/hand. Continue IV ABX, continue pain management as stated above. If she continues to improve overnight, consider discharge. Wound cultures NGTD , blood cultures NGTD (2) Mood disorder Current Visit: Yes Status: Acute Assessment and Plan: per hx calm and cooperative, does not appear anxious Continue home medications (3) HTN (hypertension) Current Visit: Yes Status: Acute Assessment and Plan: Per hx Blood pressure controlled SBP in the 140s this morning continue home anti-HTN meds (4) DVT prophylaxis Current Visit: Yes Status: Acute Assessment and Plan: Lovenox SC - Time Spent with Patient Total time spent is greater than 50% in coordination of care (as documented) at patient's floor/unit and/or counseling patient: less than 15 minutes Plan of Care Discussed with: patient Internal Medicine: Result - Labs CBC & Chem 7: 03/14/18 04:22 03/15/18 13:56 Labs: BMP 03/15/18 13:56 BUN 11 Creatinine 0.39 L Consult Discharge Plan - Plan Referrals: Bekah Ames, [employer]ELOPER [Primary Care Provider] - (1) Cellulitis Qualifiers: Site of cellulitis: extremity Site of cellulitis of extremity: upper extremity Laterality: left Qualified Code(s): L03.114 - Cellulitis of left upper limb (3) HTN (hypertension) Qualifiers: Hypertension type: essential hypertension Qualified Code(s): I10 - Essential (primary) hypertension
[2018-03-16 09:50] LABS: Basophils % 0.2 %; Hematocrit 34.7 % (35.3-44.9); Hemoglobin 11.1 g/dL (11.5-15.4); Immature Granulocytes % 0.3 % (0-4); Lymphocytes # 0.5 K/mcL (0.6-4.6); Lymphocytes % 7.4 %; Mean Corpuscular Hemoglobin 29.4 pg (28.0-33.3); Mean Corpuscular Volume 91.8 fL (83.0-100.0); Mean Platelet Volume 10.6 fL (9.4-12.4); Monocytes # 0.3 K/mcL (0.0-1.3); Monocytes % 4.8 %; Neutrophils # 5.8 K/mcL (1.6-8.9); Platelet Count 230 K/mcL (140-400); Red Blood Count 3.78 M/mcL (3.82-4.97); Segmented Neutrophils % 87.3 %
[2018-03-16 11:32] LABS: BUN/Creatinine Ratio 37 (6-26); Blood Urea Nitrogen 19 mg/dL (8-23); eGFR For Non-African Americans > 60 (> 60)
[2018-03-16] MEDS: *HR* OxyCODONE/APAP 5/325 TABLET PO PRN (20:37)
[2018-03-17] MEDS: Ringers Solution, Lactated 1,000 ML IVC SCH (02:04)
[2018-03-17 03:36] LABS: Basophils % 0.2 %; Eosinophils # 0.1 K/mcL (0.0-0.6); Eosinophils % 2.2 %; Hematocrit 32.5 % (35.3-44.9); Hemoglobin 10.3 g/dL (11.5-15.4); Immature Granulocytes % 0.4 % (0-4); Lymphocytes # 0.5 K/mcL (0.6-4.6); Lymphocytes % 9.6 %; Mean Corpuscular HGB Conc 31.7 g/dL (31.6-35.5); Mean Corpuscular Hemoglobin 29.2 pg (28.0-33.3); Mean Corpuscular Volume 92.1 fL (83.0-100.0); Mean Platelet Volume 10.9 fL (9.4-12.4); Monocytes # 0.4 K/mcL (0.0-1.3); Neutrophils # 4.4 K/mcL (1.6-8.9); Platelet Count 186 K/mcL (140-400); Red Blood Count 3.53 M/mcL (3.82-4.97); Red Cell Distribution Width 13.1 % (11.5-14.5); Segmented Neutrophils % 80.6 %
[2018-03-17 03:48] LABS: BUN/Creatinine Ratio 36 (6-26); Blood Urea Nitrogen 16 mg/dL (8-23); Calcium 8.6 mg/dL (8.6-10.3); Carbon Dioxide 29 mEq/L (23-29); Chloride 105 mEq/L (98-107); Glucose 101 mg/dL (70-105); Osmolality,Calculated 285 (280-300); Potassium 4.1 mEq/L (3.5-5.1); Sodium 137 mEq/L (136-145); eGFR For Non-African Americans > 60 (> 60)
[2018-03-17] MEDS: *HR* Enoxaparin 40 MG/0.4 ML SYRINGE SQ SCH (05:23)
[2018-03-17] MEDS: amLODIPine 5 MG TABLET PO SCH (09:04)
[2018-03-17] MEDS: Anastrozole 1 MG TABLET PO SCH (09:04)
[2018-03-17] MEDS: cefTRIAXone 1,000 MG in Water for inj. (sterile) 20 ML 10 ML IVP SCH (09:04)
[2018-03-17] MEDS: Diclofenac Sodium 75 MG TABLET PO SCH (09:05)
--- NOTE | 2018-03-17 09:58 | Internal Med Progress Note ---
Hospitalist Progress Note - Encounter Date of Encounter: 03/17/18 Time of Encounter: 09:58 - Subjective Interval History: Seen and examined at bedside today, no change in condition overnight - Exam Vitals: Temp Pulse Resp BP Pulse Ox 97.6 F 77 16 150/62 93 03/17/18 07:10 03/17/18 07:10 03/17/18 07:10 03/17/18 07:10 03/17/18 08:50 Exam: PHYSICAL EXAMINATION: GENERAL: The patient is an elderly female who is in no apparent distress, a and O 3. HEENT: Head is normocephalic and atraumatic. Extraocular muscles are intact. Pupils are equal, round, and reactive to light and accommodation. Nares appeared normal. Mouth is well hydrated and without lesions. Mucous membranes are moist. Posterior pharynx clear of any exudate or lesions. NECK: Supple. No carotid bruits. No lymphadenopathy or thyromegaly. LUNGS: Clear to auscultation B/L AP&L. HEART: Regular rate and rhythm, S1, S2 with grade 1 systolic murmur, no rubs or gallops noted. ABDOMEN: Soft, nontender, and nondistended. Positive bowel sounds. No hepatosplenomegaly was noted. EXTREMITIES: Left upper extremity with stable edema; swelling continuing to improve overnight. Drain in place. LUE warm to palpation, adequate circulation radial and ulnar pulses 2+ palpable, limited range of motion SKIN: As above - Assessment and Plan (1) Cellulitis Current Visit: Yes Status: Acute Assessment and Plan: Patient with a two-week history of left hand cellulitis and edema which has now spread to her left distal forearm Failed outpatient treatment with Bactrim and Keflex Getting vancomycin and Rocephin throughout stay Ortho seeing in consultation Exam today reveals erythema, and swelling, no drainage at site of I&D Circulation palpable 2+ radial and Ulnar pulses, fingers pink with brisk cap refill, diminished ROM Remains afebrile, no leukocytosis; does not appear toxic daily labs 03/17--Swelling stable, improvement overnight. Lt wrist and forearm remains erythamatous. Remains hemodynamically stable, afebrile and non-toxic appearing. To have surgical drain removed by ortho today. Received #3 doses Vancomycin and , Rocephin #2 doses. Discontinue Vancomycin. Consider starting oral ABX today. D/W orthopedic surgeon regarding ABX choice and duration of therapy. Blood cultures NGTD. Consider d/c this afternoon (2) Mood disorder Current Visit: Yes Status: Acute Assessment and Plan: per hx calm and cooperative, does not appear anxious treat with home medications (3) HTN (hypertension) Current Visit: Yes Status: Acute Assessment and Plan: per hx mild HTN this a.m SBP 150/72 Continue norvasc and monitor; consider adding adjunct rx if HTN persists (4) DVT prophylaxis Current Visit: Yes Status: Acute Assessment and Plan: Lovenox - Time Spent with Patient Total time spent is greater than 50% in coordination of care (as documented) at patient's floor/unit and/or counseling patient: less than 15 minutes Plan of Care Discussed with: patient Internal Medicine: Result - Labs CBC & Chem 7: 03/17/18 03:06 03/17/18 03:06 Labs: Short CBC 03/17/18 Range/Units 03:06 WBC 5.4 (4.3-11.1) K/mcL Hgb 10.3 L (11.5-15.4) g/dL Hct 32.5 L (35.3-44.9) % Plt Count 186 (140-400) K/mcL Neutrophils # 4.4 (1.6-8.9) K/mcL BMP 03/16/18 03/17/18 10:53 03:06 Sodium 137 Potassium 4.1 Chloride 105 Carbon Dioxide 29 BUN 19 16 Creatinine 0.52 L 0.44 L Glucose 101 Calcium 8.6 Consult Discharge Plan - Plan Referrals: Bekah Ames, [employer]NICIAN [Primary Care Provider] - (1) Cellulitis Qualifiers: Site of cellulitis: extremity Site of cellulitis of extremity: upper extremity Laterality: left Qualified Code(s): L03.114 - Cellulitis of left upper limb (3) HTN (hypertension) Qualifiers: Hypertension type: essential hypertension Qualified Code(s): I10 - Essential (primary) hypertension
--- NOTE | 2018-03-17 10:12 | Orthopedics Progress Note ---
Date of Encounter: 03/17/18 Time of Encounter: 10:09 Subjective Interval history: S: Resting comfortably in bed. Pain tolerable in left wrist O: AFVSS Cellulitis continues to improve I and D sites with no purulent drainage. She can grossly flex and extend the digits with some limitation due to pain. Stable extensor lag small finger The fingertips are all grossly sensate and well-perfused, and the radial artery pulse is 2+. A: Post operative I&D of the left dorsal hand P: Cellulitis improving Drain pulled today Can switch to PO antibiotics and d/c today Will s/o, f/u with Dr Cee Monday Objective Vital signs: Vital Signs Temp Pulse Resp BP Pulse Ox 03/17/18 08:50 93 03/17/18 07:10 97.6 F 77 16 150/62 93 03/17/18 04:44 98.0 F 75 15 125/67 92 03/16/18 23:06 98.6 F 72 15 119/66 89 03/16/18 18:34 99.0 F 70 15 152/67 91 03/16/18 11:12 98.2 F 80 16 160/85 94 Intake and Output 03/16/18 03/17/18 03/17/18 23:59 07:59 15:59 Intake Total 250 / 250 600 / 600 Balance 250 / 250 600 / 600 Intake: IV Fluids 250 / 250 Vancocin 1,000 MG In 0.9 % 250 / 250 Sodium Chloride 250 ML @ 167 mls/hr IVPB Q12H [facility] Rx#: [id number] Oral 600 / 600 Other: Meal Breakfast Percent of Meal Consumed 100% Weight 77.8 kg Patient Weight 03/17/18 23:59 Weight 77.8 kg - Labs CBC & BMP: 03/17/18 03:06 03/17/18 03:06 Labs: Abnormal lab results RBC 3.53 M/mcL (3.82-4.97) L 03/17/18 03:06 Hgb 10.3 g/dL (11.5-15.4) L 03/17/18 03:06 Hct 32.5 % (35.3-44.9) L 03/17/18 03:06 Lymphocytes # 0.5 K/mcL (0.6-4.6) L 03/17/18 03:06 Creatinine 0.44 mg/dL (0.60-1.20) L 03/17/18 03:06 BUN/Creatinine Ratio 36 (6-26) H 03/17/18 03:06 Vancomycin Trough 12 mcg/mL (5-10) H 03/17/18 03:06 Consult Discharge Plan - Plan Referrals: Bekah Ames, JUDITH [Primary Care Provider] -
[2018-03-17 11:31] VITALS: BP 169/76
[2018-03-17] MEDS: traMADol 50 MG TABLET PO PRN (11:40)
--- NOTE | 2018-03-17 14:32 | Discharge Summary ---
- NOTES TO OUTPATIENT PROVIDER Notes to Outpatient Provider: Follow-up with Dr. Cee on Monday03/19/18 Orders not resulted at time of discharge: Pending orders 03/15/18 18:12 Culture,Anaerobic [RM] Routine Culture,Wound [RM] Routine 03/18/18 04:00 BMP [Basic Metabolic Panel] AM 0400 Complete Blood Count [HEME] AM 0400 Date of Encounter: 03/17/18 Time of Encounter: 14:29 - Discharge Diagnosis (1) Cellulitis Priority: Primary Status: Acute Assessment and Plan: Patient with a two-week history of left hand cellulitis and edema which has now spread to her left distal forearm Failed outpatient treatment with Bactrim and Keflex Getting vancomycin and Rocephin throughout stay Ortho seeing in consultation Exam today reveals erythema, and swelling, no drainage at site of I&D Circulation palpable 2+ radial and Ulnar pulses, fingers pink with brisk cap refill, diminished ROM Remains afebrile, no leukocytosis; does not appear toxic daily labs 03/17--Swelling stable, improvement overnight. Lt wrist and forearm remains erythamatous. Remains hemodynamically stable, afebrile and non-toxic appearing. Patient able to grossly flex and extend digits, mild limitations with pain. Distal circulation left upper extremity remains intact. Surgical drain removed by ortho today. Received #3 doses Vancomycin and , Rocephin #2 doses. Discontinue Vancomycin. Wound cultures no growth to date, Blood cultures NGTD. To follow-up with Dr. Cee Monday03/19/18. Qualifiers: Site of cellulitis: extremity Site of cellulitis of extremity: upper extremity Laterality: left Qualified Code(s): L03.114 - Cellulitis of left upper limb (2) Mood disorder Priority: Secondary Status: Acute (3) HTN (hypertension) Priority: Secondary Status: Acute Qualifiers: Hypertension type: essential hypertension Qualified Code(s): I10 - Essential (primary) hypertension (4) DVT prophylaxis Priority: Secondary Status: Acute Hospital course: Ms. Burger is a 87 year old female admitted for left hand and left forearm cellulitis. S/P I&D, to left hand and left lateral forearm. Swelling stable, improving overnight. Lt wrist and forearm remains erythamatous. Remains hemodynamically stable, afebrile and non-toxic appearing. Patient able to grossly flex and extend digits, mild limitations with pain. Distal circulation left upper extremity remains intact. Surgical drain removed by ortho today. Received #3 doses Vancomycin and , Rocephin #2 doses. Discontinue Vancomycin. Wound cultures no growth to date, Blood cultures NGTD. To follow-up with Dr. Cee Monday03/19/18. She is instructed to return to the ED should she develop fever, chills, decrease in range of motion to left upper extremity, increased pain and/or swelling. The patient verbalizes understanding denies any further questions at this time. Discharge discussed with: patient, nurse, product consultant - Time Spent with Patient Total time spent providing and/or coordinating discharge services: Less than 30 minutes - Discharge Medications Prescriptions: cephALEXin [Keflex] 500 mg PO BID 7 Days #14 capsule Home Medications: Anastrozole [Arimidex] 1 mg PO DAILY 10/22/15 [History] Diclofenac Sodium [Voltaren] 75 mg PO BID 10/22/15 [History] Sertraline [Zoloft] 150 mg PO DAILY 10/22/15 [History] Simvastatin [Zocor] 20 mg PO HS 10/22/15 [History] amLODIPine [Norvasc] 5 mg PO DAILY 10/22/15 [History] Buspirone HCl [Buspar] 7.5 mg PO BID 03/04/18 [History] Calcium Carbonate/Vitamin D3 [Calcium 600 + Vit D Tablet] 1 each PO BID [History] Cholecalciferol (Vitamin D3) [Vitamin D3] 1,000 unit PO DAILY 03/04/18 [History] Donepezil HCl [Aricept] 5 mg PO HS 03/04/18 [History] Alendronate Sodium [Fosamax] 70 mg PO QWEEK 03/12/18 [History] HYDROcodone/Acet 7.5/325 mg [[place] 7.5-325 mg] 1 tab PO BID 03/12/18 [History] Latanoprost [Xalatan] 1 drop BOTH EYES HS 03/12/18 [History] cephALEXin [Keflex] 500 mg PO BID 7 Days #14 capsule 03/17/18 [Rx] Allergies/Adverse Reactions: 3 Allergy/AdvReac Type Severity Reaction Status Date / Time No Known Allergies Allergy Verified 03/04/18 12:09 Date of admission: 03/12/18 16:55 Primary care physician: ANSLEY Ramirez Consults: 03/12/18 16:57 Consult to Orthopedic Surgery [CONS] Routine Consulting Provider: [facility] Reason for Consult: Right hand cellulitis with tendon involvement Call Completed: Yes 03/16/18 15:56 Consult to Invasive Line Access Team [CONS] Routine Reason for Consult: poor access Line Type: EPIV Discharging clinician: Guilherme Jolley Anticipated date of discharge: 03/17/18 - Constitutional Vitals: Temp Pulse Resp BP Pulse Ox 98.3 F 48 16 169/76 90 03/17/18 11:25 03/17/18 11:25 03/17/18 11:25 03/17/18 11:25 03/17/18 11:25 General appearance: Present: A&O X 3, no acute distress Exam: PHYSICAL EXAMINATION: GENERAL: The patient is an elderly female who is in no apparent distress, a and O 3. HEENT: Head is normocephalic and atraumatic. Extraocular muscles are intact. Pupils are equal, round, and reactive to light and accommodation. Nares appeared normal. Mouth is well hydrated and without lesions. Mucous membranes are moist. Posterior pharynx clear of any exudate or lesions. NECK: Supple. No carotid bruits. No lymphadenopathy or thyromegaly. LUNGS: Clear to auscultation B/L AP&L. HEART: Regular rate and rhythm, S1, S2 with grade 1 systolic murmur, no rubs or gallops noted. ABDOMEN: Soft, nontender, and nondistended. Positive bowel sounds. No hepatosplenomegaly was noted. EXTREMITIES: Left upper extremity with stable edema; swelling continuing to improve overnight. Drain in place. LUE warm to palpation, adequate circulation radial and ulnar pulses 2+ palpable, limited range of motion SKIN: As above - Patient Status Disposition: Home, Self-Care Condition: Good Functional capacity at discharge: independent ambulation Overall status at discharge: patient is progressing back to baseline - Discharge Instructions Instructions: Cellulitis (DC) Follow Up With: Bekah Ames, LIT[employer]ATION PARTNER [Primary Care Provider] - - Diet and Activity Activity: increase activity as tolerated, resume usual activities as tolerated Diet: advance to your usual diet
[2018-03-17] MEDS ORDERED: Aminoglycoside Consult 1 EACH MC ONE (16:54)
== END 2018-03-17 16:55 | disposition home or self-care (01) | DRG 581 ==
LOC: 3BNU 12:05 → EMEROOARM 12:05 → 3BNU 15:22
PROVIDERS: ADMIT Family Medicine; ATTEND Family Medicine

== ENCOUNTER 2018-03-26 10:16 | Inpatient (IN) ==
[2018-03-26] MEDS ORDERED: Gadolinium Contrast Agent (WT Based) IV PRN ×2 (12:48→13:43)
[2018-03-26] MEDS ORDERED: Naloxone 0.4 MG/ML INJ IVP PRN ×2 (12:54→12:56)
[2018-03-26 13:36] LABS: Hematocrit 34.6 % (35.3-44.9); Mean Corpuscular HGB Conc 31.8 g/dL (31.6-35.5); Mean Corpuscular Hemoglobin 28.4 pg (28.0-33.3); Mean Corpuscular Volume 89.4 fL (83.0-100.0); Mean Platelet Volume 10.6 fL (9.4-12.4); Platelet Count 191 K/mcL (140-400); Red Blood Count 3.87 M/mcL (3.82-4.97); Red Cell Distribution Width 13.8 % (11.5-14.5)
[2018-03-26 13:37] LABS: INR 1.3; Prothrombin Time 15.1 Seconds (9.4-12.1)
[2018-03-26 13:39] LABS: Activated Partial Thrombo Time 29.2 Seconds (26.0-36.0)
[2018-03-26 13:51] LABS: Alanine Aminotransferase 11 Units/L (7-52); Albumin 2.9 g/dL (3.5-5.7); Alkaline Phosphatase 66 Units/L (34-104); Aspartate Amino Transferase 14 Units/L (13-39); BUN/Creatinine Ratio 27 (6-26); Bilirubin,Total 0.3 mg/dL (0.3-1.0); Blood Urea Nitrogen 14 mg/dL (8-23); C-Reactive Protein 203 mg/L (Less than 10); Calcium 9.1 mg/dL (8.6-10.3); Carbon Dioxide 24 mEq/L (23-29); Chloride 100 mEq/L (98-107); Glucose 86 mg/dL (70-105); Osmolality,Calculated 282 (280-300); Sodium 136 mEq/L (136-145); Total Protein 5.9 g/dL (6.4-8.9); eGFR For Non-African Americans > 60 (> 60)
--- NOTE | 2018-03-26 13:54 | Internal Med History&Physical ---
Date of Encounter: 03/26/18 Time of Encounter: 13:54 Internal Medicine - H&P: HPI Chief complaint: left wrist infection Admitted From: Direct Admit Plans for Post Hospital Care: Home History of present illness: Ms. Burger is a 87 year old female with history of breast cancer, hypertension and mood disorder who was recently admitted on secondary to non-healing left hand cellulitis status post I&D in the OR presented from the orthopedics office secondary to non-healing left hand cellulitis. As per patient her cellulitis was improving while she was hospitalized early in March however she was discharged with Bactrim from the hospital and reports that her cellulitis began to worsen again. She followed up with the orthopedics today who recommended her to be admitted and restarted on IV antibiotics with possible I&D in the OR. currently she denies loss of function of her hand or wrist, denies pain in the wrist, denies fever, chills, chest pain, palpitations, SOB. she does report having loose stools after she was started on Abx how ever denies any episodes of loose stools while at [facility]. Dr. Meyer spoke to me about the patient and recommended to obtain ID consultation, IV Abx and MRI of the left wrist/hand with contrast. Past Med Surg Social Fam HX - Past Medical History Medical history: arthritis, hyperlipidemia, hypertension Psychiatric history: no psych history - Past Surgical History Additional surgical history: Bilat knee replacement, appendectomy, R partial masectomy - Social History Smoking Status: Never smoker Smokeless Tobacco Status: No Alcohol use: none Drug use: none - Family History Mother Family Member Ethnicity: Non- Living Status: Still Living Hx Family Cardiac Disorders: Yes (angina) Hx Family Cancer: Yes (breast) Father Living Status: Hx Family Cardiac Disorders: Yes Hx Family Cancer: Yes (prostate) Internal Medicine - H&P: Meds Anastrozole [Arimidex] 1 mg PO DAILY 10/22/15 [History] Diclofenac Sodium [Voltaren] 75 mg PO BID 10/22/15 [History] Sertraline [Zoloft] 150 mg PO DAILY 10/22/15 [History] Simvastatin [Zocor] 20 mg PO HS 10/22/15 [History] amLODIPine [Norvasc] 5 mg PO DAILY 10/22/15 [History] Buspirone HCl [Buspar] 7.5 mg PO BID 03/04/18 [History] Calcium Carbonate/Vitamin D3 [Calcium 600 + Vit D Tablet] 1 each PO BID [History] Cholecalciferol (Vitamin D3) [Vitamin D3] 1,000 unit PO DAILY 03/04/18 [History] Donepezil HCl [Aricept] 5 mg PO HS 03/04/18 [History] Alendronate Sodium [Fosamax] 70 mg PO QWEEK 03/12/18 [History] HYDROcodone/Acet 7.5/325 mg [[place] 7.5-325 mg] 1 tab PO BID 03/12/18 [History] Latanoprost [Xalatan] 1 drop BOTH EYES HS 03/12/18 [History] 3 Allergy/AdvReac Type Severity Reaction Status Date / Time No Known Allergies Allergy Verified 03/04/18 12:09 All Systems PM: review of systems was performed and is negative for pertinent findings except as documented above in the HPI. - Constitutional Vitals: Temp Pulse Resp BP Pulse Ox 98.9 F 85 16 126/74 94 03/26/18 11:43 03/26/18 11:43 03/26/18 11:43 03/26/18 11:43 03/26/18 11:43 Exam: General: Patient is alert, oriented, no acute distress, Head: atraumatic, normocephalic, Eye: normal appearance, PERRL, no scleral icterus, no conjunctival injection ENT: mucous membranes moist, normal external ear exam Neck: normal inspection, trachea midline, full ROM, no carotid bruits Chest: normal inspection, symmetric chest rise Respiratory: Good respiratory effort. Bilateral breath sounds are clear without wheezing, crackles, or rhonchi. Cardiovascular: Regular rate and rhythm. s1 and s2 No clicks, rubs, gallops, or murmors. Abdomen: Bowel sounds present normoactive x-4 quadrants. Abdomen is soft, nondistended. no Epigastric tenderness. No guarding or rebound. No organomegaly noted, obese musculoskeletal: Spontaneously moving all extremities. no edema, no calf tenderness she can flex and extend the digits of the left hand with some limitation due to pain, radial artery pulses +2 Skin: warm, dry, intact. Warm to the dorsal aspect of the left wrist with swelling. Covered in clean gauze Neuro: Alert and oriented x4. Sensation light touch intact. Cranial nerves 2- 12 is intact. Not aphasic,, no focal deficit Psych: Patient's affect is normal Internal Med - H&P Results - Labs CBC & Chem 7: 03/26/18 13:04 03/26/18 13:04 Labs: Short CBC 03/26/18 Range/Units 13:04 WBC 6.5 (4.3-11.1) K/mcL Hgb 11.0 L (11.5-15.4) g/dL Hct 34.6 L (35.3-44.9) % Plt Count 191 (140-400) K/mcL BMP 03/26/18 13:04 Sodium 136 Potassium 4.0 Chloride 100 Carbon Dioxide 24 BUN 14 Creatinine 0.52 L Glucose 86 Calcium 9.1 Liver Function 03/26/18 Range/Units 13:04 Total Bilirubin 0.3 (0.3-1.0) mg/dL AST 14 (13-39) Units/L ALT 11 (7-52) Units/L Alkaline Phosphatase 66 (34-104) Units/L Albumin 2.9 L (3.5-5.7) g/dL - Assessment and plan (1) Cellulitis Current Visit: No Status: Acute Assessment and plan: Left wrist cellulitis status post I&D on last admission in early March 2018 rule out osteomyelitis of the left wrist Failed outpatient oral antibiotics Spoke to Dr. meyer who recommended inpatient Admission CBC, CMP, ESR, CRP MRI of the left wrist with contrast ordered Started on vancomycin and Zosyn Dr. Ribeiro is on board will see the patient Infectious disease was consulted will follow recommendations Blood cultures ordered Qualifiers: Site of cellulitis: extremity Site of cellulitis of extremity: upper extremity Laterality: left Qualified Code(s): L03.114 - Cellulitis of left upper limb (2) HTN (hypertension) Current Visit: No Status: Acute Assessment and plan: continue home medications if not CI Qualifiers: Hypertension type: essential hypertension Qualified Code(s): I10 - Essential (primary) hypertension (3) Mood disorder Current Visit: No Status: Acute Assessment and plan: continue home medications if not CI (4) DVT prophylaxis Current Visit: No Status: Acute Assessment and plan: lovenox sc - Time Spent With Patient Total time spent is greater than 50% in coordination of care (as documented) at patient's floor/unit and/or counseling patient:
[2018-03-26] MEDS: *HR* Heparin 5,000 UNIT/ML VIAL SQ SCH ×2 (14:18→20:21)
[2018-03-26] MEDS ORDERED: NON-FORMULARY MEDICATION 1 EACH EACH (Alendronate Sodium [Fosamax] 70 MG) PO SCH (14:30)
[2018-03-26] MEDS: Piperacillin/Tazobactam 3.375 GM in 0.9 % Sodium Chloride Mini Bag 100 ML IVPB SCH ×2 (16:00→23:13)
[2018-03-26] MEDS ORDERED: 0.9 % Sodium Chloride 1,000 ML IVC SCH (17:00)
--- NOTE | 2018-03-26 18:33 | Orthopedic Consult Note ---
Date of Encounter: 03/26/18 Time of Encounter: 18:30 Assessment and Plan (1) Cellulitis Current Visit: No Status: Acute I did discuss the diagnosis in detail with the patient. She does have a persistent subacute left dorsal hand/wrist abscess with possible contiguous spread into the wrist joint and DRUJ. My recommendation is to proceed with incision, drainage, irrigation, and debridement of these areas. She is currently on the add-on schedule for tomorrow. Nothing by mouth after midnight. IV antibiotics per the primary team. The infectious disease team has been consulted to assist in the evaluation and management as well as antibiotic selection. Given the persistent nature of infection despite previous I&D as well as concern for involvement of the joint I anticipate she will likely need long-term IV antibiotics. The risks of surgery discussed included but were not limited to stiffness, bleeding, infection, blood clots, damage to neurovascular structures, tendons, ligaments, and bone. Also discussed was the risk of continued symptoms and possible need for further procedures. I did discuss the anesthesia risks including stroke, heart attack, and . I did discuss the reasonable, foreseeable postoperative course with the patient. The patient did wish to proceed and consent. Qualifiers: Site of cellulitis: extremity Site of cellulitis of extremity: upper extremity Laterality: left Qualified Code(s): L03.114 - Cellulitis of left upper limb History of Present Illness HPI: Ms. Burger is a 87 year old female who has a subacute infection to the dorsal aspect of the left hand and wrist. She had a recent hospital admission where she underwent I&D however all cultures are negative. She was discharged on Bactrim and was improving however her progress halted and she has had persistent symptoms since she was last seen in the office on of last week. She complains of achy and sharp pains diffusely about the wrist but most focal along the ulnar and dorsal aspect near her old I&D site. Pain is worse with any movement of the wrist or digits. She denies any numbness, tingling, or any other associated signs or symptoms or modifying factors. She currently denies any feelings of illness though she had previously had issues with vomiting and constipation though this has resolved. Past Med Surg Social Fam HX - Past Medical History Medical history: arthritis, hyperlipidemia, hypertension Psychiatric history: no psych history - Past Surgical History Additional surgical history: Bilat knee replacement, appendectomy, R partial masectomy - Social History Smoking Status: Never smoker Smokeless Tobacco Status: No Alcohol use: none Drug use: none - Family History Mother Family Member Ethnicity: Non- Living Status: Still Living Hx Family Cardiac Disorders: Yes (angina) Hx Family Cancer: Yes (breast) Father Living Status: Hx Family Cardiac Disorders: Yes Hx Family Cancer: Yes (prostate) Medications and Allergies Anastrozole [Arimidex] 1 mg PO DAILY 10/22/15 [History] Diclofenac Sodium [Voltaren] 75 mg PO BID 10/22/15 [History] Sertraline [Zoloft] 150 mg PO DAILY 10/22/15 [History] Simvastatin [Zocor] 20 mg PO HS 10/22/15 [History] amLODIPine [Norvasc] 5 mg PO DAILY 10/22/15 [History] Buspirone HCl [Buspar] 7.5 mg PO BID 03/04/18 [History] Calcium Carbonate/Vitamin D3 [Calcium 600 + Vit D Tablet] 1 each PO BID [History] Cholecalciferol (Vitamin D3) [Vitamin D3] 1,000 unit PO DAILY 03/04/18 [History] Donepezil HCl [Aricept] 5 mg PO HS 03/04/18 [History] Alendronate Sodium [Fosamax] 70 mg PO QWEEK 03/12/18 [History] HYDROcodone/Acet 7.5/325 mg [[place] 7.5-325 mg] 1 tab PO BID 03/12/18 [History] Latanoprost [Xalatan] 1 drop BOTH EYES HS 03/12/18 [History] 3 Allergy/AdvReac Type Severity Reaction Status Date / Time No Known Allergies Allergy Verified 03/04/18 12:09 All Systems Reviewed: Constitutional and musculoskeletal systems were reviewed and are negative unless otherwise stated in history of present illness. Physical Exam - Constitutional Vitals: Temp Pulse Resp BP Pulse Ox 98.1 F 63 15 126/71 100 03/26/18 14:43 03/26/18 14:43 03/26/18 14:43 03/26/18 14:43 03/26/18 14:43 CONSTITUTIONAL -Vitals reviewed -The patient is well developed, well nourished, well groomed PSYCHIATRIC -Fully alert and oriented -Pleasant mood LEFT UPPER EXTREMITY Inspection shows the I&D site is healing however there is persistent erythema and edema localized to the dorsal and ulnar aspect of the hand spreading into the mid dorsal aspect of the wrist area. Moderate induration in this area and minimal fluctuance. There is a mild amount of purulent drainage from the proximal aspect of the wound. Stiffness of the wrist and the digits consistent with pain and swelling. She is able to grossly flex and extend the digits with limitation due to the pain. I can gently range the wrist through the mid arc of motion with only mild pain. The fingertips are all grossly sensate and well -perfused, and the radial artery pulse is 2+. Diagnostic Imaging: I did personally review and interpret the MRI and do note what appears to be a dorsal and ulnar wrist abscess also with concern for joint effusion and possible contiguous spread into the wrist joint and DRUJ. Results - Labs Result Diagrams: 03/26/18 13:04 03/26/18 13:04 Labs: Abnormal lab results Hgb 11.0 g/dL (11.5-15.4) L 03/26/18 13:04 Hct 34.6 % (35.3-44.9) L 03/26/18 13:04 ESR 35 mm/hr (0-15) H 03/26/18 13:04 PT 15.1 Seconds (9.4-12.1) H 03/26/18 13:04 Creatinine 0.52 mg/dL (0.60-1.20) L 03/26/18 13:04 BUN/Creatinine Ratio 27 (6-26) H 03/26/18 13:04 C-Reactive Protein 203 mg/L (Less than 10) H 03/26/18 13:04 Serum Total Protein 5.9 g/dL (6.4-8.9) L 03/26/18 13:04 Albumin 2.9 g/dL (3.5-5.7) L 03/26/18 13:04 Albumin/Globulin Ratio 1.0 (1.1-2.2) L 03/26/18 13:04 H & H 03/26/18 Range/Units 13:04 Hgb 11.0 L (11.5-15.4) g/dL Hct 34.6 L (35.3-44.9) % All other labs normal. Consult Discharge Plan - Plan Referrals: Bekah Ames, JUDITH [Primary Care Provider] -
[2018-03-26] MEDS ORDERED: Acetaminophen 325 MG TABLET PO ONE (18:37)
--- NOTE | 2018-03-26 20:02 | Infectious Disease Consult ---
Date of Encounter: 03/26/18 Time of Encounter: 19:53 Assessment and Plan (1) Abscess of right upper extremity Status: Acute Assessment and plan: Seen on MRI on 03/26/2018 Causative organism not clear Status post I&D for cellulitis and early abscess on 03/15/2018; Intra-Op cultures were negative at that time (has been on IV antibiotics for 3 days prior to surgery) Started on broad-spectrum antibiotics including vancomycin and Zosyn Discussed with Dr. Ribeiro; patient was already on oral antibiotics and previous IV Cipro think stopping the antibiotics till tomorrow surgery to make a big difference anymore Goal vancomycin trough 10-15 Monitor labs and for drug toxicity Duration of treatment depends on the clinical picture and Intra-Op findings but my concern is that there is a septic joint and may be early osteomyelitis. We will tailor antibiotics based on the Intra-Op cultures results Please send Intra-Op cultures for routine, anaerobic, AFB and fungal (2) Transient synovitis, unspecified wrist Status: Acute Qualifiers: Laterality: right Qualified Code(s): M67.331 - Transient synovitis, right wrist (3) Cellulitis Status: Acute Qualifiers: Site of cellulitis: extremity Site of cellulitis of extremity: upper extremity Laterality: left Qualified Code(s): L03.114 - Cellulitis of left upper limb (4) Mood disorder Status: Acute (5) HTN (hypertension) Status: Acute Qualifiers: Hypertension type: essential hypertension Qualified Code(s): I10 - Essential (primary) hypertension Infectious Disease HPI - Data of Consult Patient: new to practice Consult date: 03/26/18 Requesting Physician: Asmita Steele MD Primary Care Provider: ANSLEY Ramirez - Consult Narrative Reason for consult: septic arthritis and wrist abscess History of present illness: Ms. Burger is a 87 year old female Patient is a very pleasant 87-year-old woman who presented today for nonhealing left wrist infection. We are consulted for antibiotic recommendations. Patient is a very pleasant 87-year-old lady with past medical history mentioned below including arthritis, hyperlipidemia and hypertension was had multiple surgical procedures including bilateral knee arthroplasty tells me that apparently about end of February she had a fall at home. She did not know that she struck her wrist anything but a day or 2 later started getting swollen and painful. Patient was evaluated as an outpatient and was given a combination of Bactrim and Keflex with no improvement. Patient eventually came in to [facility] for evaluation on 03/12/2018. Patient was started on IV vancomycin and Rocephin. An MRI of the wrist at that time should revealed extensive edema/ inflammation of the wrist dorsum with a sinus tract and soft tissue defect along the ulnar side of the wrist dorsum. Small subcentimeter foci of fluid within the wrist dorsum soft tissue may represent early abscess formation. Patient was taken to surgery on 03/15/2018 where patient underwent incision, drainage, irrigation and debridement of the left dorsal hand and wrist infection involving subcutaneous tissue. Apparently purulent material could be milk from the proximal aspect of the wrist. I did speak with Dr. Ribeiro who performed the procedure. Intra-Op cultures were negative. Keep in mind that the patient has been on Bactrim and Keflex as an outpatient followed by vancomycin and Rocephin for 3 days prior to surgery as an inpatient. Patient received 6 days worth of IV Vanco and Rocephin and discharged on Keflex for 7 more days. Patient was evaluated outpatient by Dr. Ribeiro and the erythema and swelling of the wrist was getting worse so he sent the patient for direct admission. Since admission patient has been afebrile has no sepsis criteria. Labs revealed normal WBC of 6.5. No differential was obtained. ESR was mildly elevated at 35. Kidney function was normal with a BUN 14 creatinine 0.52.. CRP though was elevated at 203. Blood culture was obtained only one set and it came back no growth to date. A repeat MRI of the wrist on 03/26/2018 reveals rim-enhancing fluid collection noted along the dorsal aspect of the distal forearm and extending to the level of the wrist compatible with abscess formation size was 0.61.4 cm there was moderate size wrist effusion and septic joint would be difficult to exclude. Tenosynovitis of the second and fourth extensor compartment there is patchy marrow edema within the distal ulna may reflect osteitis versus early osteomyelitis. Patient was started on broad- spectrum antibiotics including vancomycin and Zosyn we will consult to evaluate the patient. Currently patient laying in bed and appears comfortable pain is under control. Her review of systems unremarkable no headache no URI symptoms. No sinus pressure. No cough no chest pain or shortness of breath no known pain no diarrhea no urinary symptoms. CC: Asmita Steele MD Past Med Surg Social Fam HX - Past Medical History Medical history: arthritis, hyperlipidemia, hypertension Psychiatric history: no psych history - Past Surgical History Additional surgical history: Bilat knee replacement, appendectomy, R partial masectomy - Social History Smoking Status: Never smoker Smokeless Tobacco Status: No Alcohol use: none Drug use: none - Family History Mother Family Member Ethnicity: Non- Living Status: Still Living Hx Family Cardiac Disorders: Yes (angina) Hx Family Cancer: Yes (breast) Father Living Status: Hx Family Cardiac Disorders: Yes Hx Family Cancer: Yes (prostate) Infectious Disease-CN:Meds Anastrozole [Arimidex] 1 mg PO DAILY 10/22/15 [History] Diclofenac Sodium [Voltaren] 75 mg PO BID 10/22/15 [History] Sertraline [Zoloft] 150 mg PO DAILY 10/22/15 [History] Simvastatin [Zocor] 20 mg PO HS 10/22/15 [History] amLODIPine [Norvasc] 5 mg PO DAILY 10/22/15 [History] Buspirone HCl [Buspar] 7.5 mg PO BID 03/04/18 [History] Calcium Carbonate/Vitamin D3 [Calcium 600 + Vit D Tablet] 1 each PO BID [History] Cholecalciferol (Vitamin D3) [Vitamin D3] 1,000 unit PO DAILY 03/04/18 [History] Donepezil HCl [Aricept] 5 mg PO HS 03/04/18 [History] Alendronate Sodium [Fosamax] 70 mg PO QWEEK 03/12/18 [History] HYDROcodone/Acet 7.5/325 mg [[place] 7.5-325 mg] 1 tab PO BID 03/12/18 [History] Latanoprost [Xalatan] 1 drop BOTH EYES HS 03/12/18 [History] 3 Allergy/AdvReac Type Severity Reaction Status Date / Time No Known Allergies Allergy Verified 03/04/18 12:09 Review of systems: 10 point review of systems done, negative other for what mentioned in history of present illness Exam - Constitutional Vitals: Temp Pulse Resp BP Pulse Ox 98.1 F 63 15 126/71 100 03/26/18 14:43 03/26/18 14:43 03/26/18 14:43 03/26/18 14:43 03/26/18 14:43 General appearance: no acute distress, no febrile - Head Head exam: Present: atraumatic, normocephalic - Eye Eye exam: Present: EOMI, PERRL, sclera anicteric - ENT ENT exam: Present: mucous membranes moist Additional comments: No oral thrush - Neck Neck exam: Present: full ROM, normal inspection - Respiratory Respiratory exam: Present: CTAB. Absent: wheezes - Cardiovascular Cardiovascular exam: Present: RRR, +S1, +S2 - GI/Abdominal GI/Abdominal exam: Present: normal bowel sounds, soft. Absent: tenderness - Extremities Exam Additional comments: Swelling erythema and decreased mobility and range of motion of the right wrist. Scar on the lateral side of the wrist noted fully healed no wound dehiscence - Neurological Exam Neurological exam: Present: alert, oriented X3. Absent: speech deficit - Psychiatric Psychiatric exam: Present: normal affect, normal mood - Skin Skin exam: Present: normal color. Absent: rash Infectious Disease CN: Results - Labs CBC & Chem 7: 03/26/18 13:04 03/26/18 13:04 Cultures: Cultures 03/26/18 13:04 Blood Culture - Preliminary Peripheral Venipuncture Culture is incubating and being continuously monitored for growth. Final report to follow. Consult Discharge Plan - Plan Referrals: Bekah Ames CNP [Primary Care Provider] -
[2018-03-26] MEDS: *HR* HYDROcodone/Acet 7.5/325 mg TABLET PO SCH (20:20)
[2018-03-26] MEDS: Latanoprost 2.5 ML BOTTLE BOTH EYES SCH (20:21)
[2018-03-26] MEDS: Diclofenac Sodium 75 MG TABLET PO SCH (20:23)
[2018-03-27 01:46] LABS: Eosinophils # 0.1 K/mcL (0.0-0.6); Eosinophils % 1.5 %; Immature Granulocytes % 0.8 % (0-4); Lymphocytes # 0.6 K/mcL (0.6-4.6); Lymphocytes % 11.8 %; Mean Corpuscular HGB Conc 32.3 g/dL (31.6-35.5); Mean Corpuscular Hemoglobin 28.6 pg (28.0-33.3); Mean Corpuscular Volume 88.6 fL (83.0-100.0); Mean Platelet Volume 10.9 fL (9.4-12.4); Monocytes # 0.4 K/mcL (0.0-1.3); Monocytes % 8.3 %; Platelet Count 179 K/mcL (140-400); Red Cell Distribution Width 13.9 % (11.5-14.5); Segmented Neutrophils % 77.6 %
[2018-03-27 01:58] LABS: BUN/Creatinine Ratio 20 (6-26); Blood Urea Nitrogen 10 mg/dL (8-23); Calcium 8.7 mg/dL (8.6-10.3); Carbon Dioxide 24 mEq/L (23-29); Chloride 102 mEq/L (98-107); Glucose 101 mg/dL (70-105); Osmolality,Calculated 279 (280-300); Potassium 3.7 mEq/L (3.5-5.1); Sodium 135 mEq/L (136-145); eGFR For Non-African Americans > 60 (> 60)
[2018-03-27] MEDS: *HR* Heparin 5,000 UNIT/ML VIAL SQ SCH ×3 (05:53→21:43)
[2018-03-27] MEDS: *HR* HYDROcodone/Acet 7.5/325 mg TABLET PO SCH ×2 (07:55→21:42)
[2018-03-27] MEDS: Diclofenac Sodium 75 MG TABLET PO SCH ×2 (07:55→21:42)
[2018-03-27] MEDS: Piperacillin/Tazobactam 3.375 GM in 0.9 % Sodium Chloride Mini Bag 100 ML IVPB SCH ×3 (07:55→23:11)
--- NOTE | 2018-03-27 08:46 | Internal Med Progress Note ---
Hospitalist Progress Note - Encounter Date of Encounter: 03/27/18 Time of Encounter: 08:43 - Subjective Interval History: Patient seen and examined this morning. No acute overnight events. C/o Lt wrist pain. No fever, chills, N/V/D. NPO for surgical intervention. - Exam Vitals: Temp Pulse Resp BP Pulse Ox 97.8 F 68 16 151/75 90 03/27/18 06:31 03/27/18 06:31 03/27/18 06:31 03/27/18 06:31 03/27/18 06:31 Exam: General: Patient is alert, oriented, no acute distress, Respiratory: CTAB, no wheezing, crackles, or rhonchi. Cardiovascular: RRR. s1 and s2 No clicks, rubs, gallops, or murmors. Abdomen: BAbdomen is soft, nondistended. no Epigastric tenderness. No guarding or rebound. No organomegaly noted. Musculoskeletal: radial artery pulses +2, Decreased ROM in Lt wrist due to pain and swelling. Skin: Warm, red and indurated to the dorsal aspect of the left wrist with swelling. Neuro: Alert and oriented x4. Sensation light touch intact. Cranial nerves 2- 12 is intact. Not aphasic,, no focal deficit Psych: Patient's affect is normal - Assessment and Plan (1) Cellulitis Current Visit: No Status: Acute (2) Mood disorder Current Visit: No Status: Acute (3) HTN (hypertension) Current Visit: No Status: Acute (4) DVT prophylaxis Current Visit: No Status: Acute - Summary of Assessment and Plan Summary of Assessment and Plan: Cellululitis, abscess, ?OM - Left wrist cellulitis status post I&D on last admission in 03/15/2018 - MRI shows abscess, wrist effusion mod, cannot rule out septic joint, tenosynoviits 2nd, 4th, early osteomyelitis vs reactive osteitis - c/w Vanc/zosyn - NPO for surgical debridement, I/D and irrigation today. - ID following HTN - continue home amlodipine, Mood disorder - continue home buspirone, sertraline DVT prophylaxis - lovenox sc - Time Spent with Patient Total time spent is greater than 50% in coordination of care (as documented) at patient's floor/unit and/or counseling patient: Internal Medicine: Result - Labs CBC & Chem 7: 03/27/18 00:52 03/27/18 00:52 Labs: Short CBC 03/26/18 03/27/18 Range/Units 13:04 00:52 WBC 6.5 5.2 (4.3-11.1) K/mcL Hgb 11.0 L 10.0 L (11.5-15.4) g/dL Hct 34.6 L 31.0 L (35.3-44.9) % Plt Count 191 179 (140-400) K/mcL Neutrophils # 4.0 (1.6-8.9) K/mcL BMP 03/26/18 03/27/18 13:04 00:52 Sodium 136 135 L Potassium 4.0 3.7 Chloride 100 102 Carbon Dioxide 24 24 BUN 14 10 Creatinine 0.52 L 0.49 L Glucose 86 101 Calcium 9.1 8.7 Liver Function 03/26/18 Range/Units 13:04 Total Bilirubin 0.3 (0.3-1.0) mg/dL AST 14 (13-39) Units/L ALT 11 (7-52) Units/L Alkaline Phosphatase 66 (34-104) Units/L Albumin 2.9 L (3.5-5.7) g/dL - ABG Interpretation ABG results: PT/INR, D-dimer PT 15.1 Seconds (9.4-12.1) H 03/26/18 13:04 - Impressions Impressions Wrist MRI 03/26/18 13:43 IMPRESSION: Image quality is degraded secondary to motion artifact. 1. Rim enhancing fluid collections noted along the dorsal aspect of the distal forearm and extending to the level of the wrist compatible with abscess formation. The largest collection measures approximately 0.6 x 1.0 x 1.4 cm. There is pronounced surrounding soft tissue edema and enhancement consistent with cellulitis. 2. Moderate size wrist effusion which is new compared with prior exam. The sterility of the joint fluid is indeterminate on imaging. Septic joint would be difficult to exclude given the soft tissue findings. 3. Tenosynovitis of the 2nd and 4th extensor compartments. 4. Indistinct appearance of the extensor digiti minimi tendon which may reflect tendinosis. Motion artifact does limit its evaluation. 5. Heterogeneous appearance of the marrow signal diffusely which may be related to underlying severe osteopenia. There is patchy marrow edema within the distal ulna and triquetrum with mild postcontrast enhancement. Findings may reflect reactive osteitis versus very early changes of osteomyelitis. 6. Partial tear of the scapholunate ligament complex with no evidence for pathologic widening of the scapholunate interval. 7. 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 8. 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 D/ / Paul Schafer MD / Paul Schafer MD Interpreting Provider: Paul Schafer MD Consult Discharge Plan - Plan Referrals: Bekah Ames, [employer] [Primary Care Provider] - (1) Cellulitis Qualifiers: Site of cellulitis: extremity Site of cellulitis of extremity: upper extremity Laterality: left Qualified Code(s): L03.114 - Cellulitis of left upper limb (3) HTN (hypertension) Qualifiers: Hypertension type: essential hypertension Qualified Code(s): I10 - Essential (primary) hypertension
[2018-03-27] MEDS ORDERED: amLODIPine 5 MG TABLET PO SCH (09:00)
[2018-03-27] MEDS ORDERED: Cholecalciferol (D-3) 1,000 UNIT TABLET PO SCH (09:00)
[2018-03-27] MEDS ORDERED: Anastrozole 1 MG TABLET PO SCH (09:00)
--- NOTE | 2018-03-27 13:11 | Orthopedics Progress Note ---
Date of Encounter: 03/27/18 Time of Encounter: 13:09 - Assessment and Plan (1) Cellulitis Current Visit: No Status: Acute Qualifiers: Site of cellulitis: extremity Site of cellulitis of extremity: upper extremity Laterality: left Qualified Code(s): L03.114 - Cellulitis of left upper limb Subjective Interval history: S: Seen on the floor her pain is relatively controlled the left hand and wrist areas. O: Afebrile on the vital signs are stable Persistent swelling, induration, fluctuance of the left dorsal hand and wrist area more along the ulnar aspect MRI findings noted A: Persistent left dorsal wrist and hand cellulitis P: We will plan on incision, drainage, irrigation and debridement later today in the operating room and I anticipate debridement of the actual wrist joint as well. The risks discussed included but were not limited to stiffness, bleeding , infection, blood clots, damage to neurovascular structures, tendons, ligaments , and bone. Also discussed was the risk of continued symptoms and possible need for further procedures. I did discuss the anesthesia risks including stroke, heart attack, and . I did discuss the reasonable, foreseeable postoperative course with the patient. The patient did wish to proceed and consent was obtained. Objective Vital signs: Vital Signs Temp Pulse Resp BP Pulse Ox 03/27/18 10:01 98.2 F 78 14 131/69 92 03/27/18 06:31 97.8 F 68 16 151/75 90 03/27/18 05:26 98.0 F 79 15 174/84 93 03/27/18 01:06 98.4 F 81 16 136/78 91 03/26/18 20:36 98.5 F 58 15 111/63 93 03/26/18 14:43 98.1 F 63 15 126/71 100 Intake and Output 03/26/18 03/27/18 03/27/18 23:59 07:59 15:59 Intake Total 590 / 590 350 / 350 978 / 978 Output Total 200 / 200 200 / 200 300 / 300 Balance 390 / 390 150 / 150 678 / 678 Intake: IV Fluids 350 / 350 350 / 350 978 / 978 0.9 % Sodium Chloride 1,000 ML 878 / 878 @ 50 mls/hr IVC .Q20H [facility] Rx#: [id number] Zosyn 3.375 GM In 0.9 % Sodium 100 / 100 100 / 100 100 / 100 Chloride (Mini-Bag +) 100 ML @ 25 mls/hr IVPB Q8HR [facility] Rx#: [id number] Vancocin 1,000 MG In 0.9 % 250 / 250 250 / 250 Sodium Chloride 250 ML @ 167 mls/hr IVPB Q12H [facility] Rx#: [id number] Oral 240 / 240 0 / 0 0 / 0 Output: Urine 200 / 200 200 / 200 300 / 300 Other: Meal NPO Percent of Meal Consumed 0% 0% Stool Size Small Stool Consistency liquid Stool Color Brown # Voids 1 # Bowel Movements 1 Blood Glucose* 77 - Labs CBC & BMP: 03/27/18 00:52 03/27/18 00:52 Labs: Abnormal lab results RBC 3.50 M/mcL (3.82-4.97) L 03/27/18 00:52 Hgb 10.0 g/dL (11.5-15.4) L 03/27/18 00:52 Hct 31.0 % (35.3-44.9) L 03/27/18 00:52 ESR 35 mm/hr (0-15) H 03/26/18 13:04 PT 15.1 Seconds (9.4-12.1) H 03/26/18 13:04 Sodium 135 mEq/L (136-145) L 03/27/18 00:52 Creatinine 0.49 mg/dL (0.60-1.20) L 03/27/18 00:52 Calculated Osmolality 279 (280-300) L 03/27/18 00:52 C-Reactive Protein 203 mg/L (Less than 10) H 03/26/18 13:04 Serum Total Protein 5.9 g/dL (6.4-8.9) L 03/26/18 13:04 Albumin 2.9 g/dL (3.5-5.7) L 03/26/18 13:04 Albumin/Globulin Ratio 1.0 (1.1-2.2) L 03/26/18 13:04 Consult Discharge Plan - Plan Referrals: Bekah Ames, [employer] [Primary Care Provider] -
--- NOTE | 2018-03-27 14:33 | Infectious Disease Progress No ---
Date of Encounter: 03/27/18 Time of Encounter: 10:45 - Assessment and Plan (1) Abscess of left upper extremity Current Visit: Yes Status: Acute Location: Let wrist. Causative organism: unclear. Status post I & D for cellulitis and early abscess 03/15/18. Intra-op cultures were negative (the patient had been on IV antibiotics for 3 days prior). Started on broad-spectrum antibiotics including Vanc and Zosyn. MRI cannot rule out septic arthritis or osteomyelitis. ESR 35, CRP 203. Orthopedics consulted and following. The patient was on PO Keflex prior to admission and has already received IV antibiotics, so stopping at this point until surgery would likely be non- yielding. Scheduled for I & D later today. Please send cultures for aerobic, anaerobic, AFB, and fungal. Continue Vancomycin IV. Pharmacy to dose. Goal trough ~15. Continue Zosyn 3.375 grams IV Q8H. Duration of treatment depends on the clinical picture. Monitor renal function and for drug toxicity and dose-adjust antibiotics. Await cultures and de-escalate if/when able. (2) Cellulitis Current Visit: No Status: Acute Location: Left wrist. Causative organism unclear. MRI results noted. Orthopedics consulted. Continue antibiotics as above for now. Qualifiers: Site of cellulitis: extremity Site of cellulitis of extremity: upper extremity Laterality: left Qualified Code(s): L03.114 - Cellulitis of left upper limb (3) Transient synovitis, unspecified wrist Current Visit: Yes Status: Acute Qualifiers: Laterality: right Qualified Code(s): M67.331 - Transient synovitis, right wrist (4) HTN (hypertension) Current Visit: No Status: Chronic Qualifiers: Hypertension type: essential hypertension Qualified Code(s): I10 - Essential (primary) hypertension - Subjective Interval history: Patient seen and examined. No acute events noted overnight. Patient resting quietly in bed. Planning for operative intervention on her left wrist later today. States she does have some mild pain in the left wrist. Denies any fevers or chills or rigors. Denies chest pain, shortness of breath, or cough. Denies any nausea, vomiting, diarrhea, constipation. Denies any abdominal pain or urinary complaints. States her appetite is not very good. She denies any oral thrush and no skin lesions. Infect Dis PN-Objective Data - Labs CBC & Chem 7: 03/27/18 00:52 03/27/18 00:52 Labs: Laboratory Results - last 24 hr 03/27/18 03/27/18 00:52 00:52 WBC 5.2 RBC 3.50 L Hgb 10.0 L Hct 31.0 L MCV 88.6 MCH 28.6 MCHC 32.3 RDW 13.9 Plt Count 179 MPV 10.9 Immature Gran % 0.8 Seg Neutrophils % 77.6 Lymphocytes % 11.8 Monocytes % 8.3 Eosinophils % 1.5 Basophils % 0.0 Neutrophils # 4.0 Lymphocytes # 0.6 Monocytes # 0.4 Eosinophils # 0.1 Basophils # 0.0 Sodium 135 L Potassium 3.7 Chloride 102 Carbon Dioxide 24 BUN 10 Creatinine 0.49 L Est GFR ( Amer) > 60 Est GFR (Non-Af Amer) > 60 BUN/Creatinine Ratio 20 Glucose 101 Calculated Osmolality 279 L Calcium 8.7 Cultures: Cultures 03/26/18 13:04 Blood Culture - Preliminary Peripheral Venipuncture Culture is incubating and being continuously monitored for growth. Final report to follow. - Impressions Impressions Wrist MRI 03/26/18 13:43 IMPRESSION: Image quality is degraded secondary to motion artifact. 1. Rim enhancing fluid collections noted along the dorsal aspect of the distal forearm and extending to the level of the wrist compatible with abscess formation. The largest collection measures approximately 0.6 x 1.0 x 1.4 cm. There is pronounced surrounding soft tissue edema and enhancement consistent with cellulitis. 2. Moderate size wrist effusion which is new compared with prior exam. The sterility of the joint fluid is indeterminate on imaging. Septic joint would be difficult to exclude given the soft tissue findings. 3. Tenosynovitis of the 2nd and 4th extensor compartments. 4. Indistinct appearance of the extensor digiti minimi tendon which may reflect tendinosis. Motion artifact does limit its evaluation. 5. Heterogeneous appearance of the marrow signal diffusely which may be related to underlying severe osteopenia. There is patchy marrow edema within the distal ulna and triquetrum with mild postcontrast enhancement. Findings may reflect reactive osteitis versus very early changes of osteomyelitis. 6. Partial tear of the scapholunate ligament complex with no evidence for pathologic widening of the scapholunate interval. 7. 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 8. 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 D/ / Paul Schafer MD / Paul Schafer MD Interpreting Provider: Paul Schafer MD Exam - Constitutional Vitals: Temp Pulse Resp BP Pulse Ox 98.0 F 81 14 160/72 93 03/27/18 14:08 03/27/18 14:08 03/27/18 14:08 03/27/18 14:08 03/27/18 14:08 General appearance: average body habitus, cooperative, no acute distress - Head Head exam: Present: atraumatic, normal inspection, normocephalic - Eye Eye exam: Present: EOMI, normal appearance, PERRL Pupils: Present: normal accommodation - ENT ENT exam: Present: mucous membranes moist - Neck Neck exam: Present: normal inspection - Respiratory Respiratory exam: Present: CTAB. Absent: rales, respiratory distress, rhonchi, wheezes - Cardiovascular Cardiovascular exam: Present: RRR, +S1, +S2 - GI/Abdominal GI/Abdominal exam: Present: normal bowel sounds, soft, tenderness. Absent: distended - Extremities Exam Extremities exam: Absent: joint swelling, normal inspection (Left wrist edematous and warm and tender to touch. Previous surgical site is well-healed.) , pedal edema, tenderness - Neurological Exam Neurological exam: Present: alert, oriented X3, no focal deficits - Psychiatric Psychiatric exam: Present: normal affect, normal mood - Skin Skin exam: Present: dry, intact, normal color, warm Consult Discharge Plan - Plan Referrals: Bekah Ames VOLTAGE INSPECTOR [Primary Care Provider] - - Attending Attestation I examined this patient and my medical decision-making was reviewed with the Resident Physician. I agree with the documented findings, disposition and treatment plan as described except to the extent set forth below.
--- NOTE | 2018-03-27 16:07 | Anesthesia Evaluation PreOp ---
Date of Encounter: 03/27/18 Time of Encounter: 16:05 - Past History Planned Operation: I&D L-wrist Cardiac History: HTN, Hyperlipidemia Pulmonary History: Snore, PATRICIA Dx (No CPAP use) PAVILION CUTTER History: Other (mood disorder) Other Medical History: Other (Hx Breast Ca s/p partial mastectomy & XRT) Anesthesia History: No Prior Anesthetic Complications, Past Anesthesia Alcohol Use: none Drug use: none Medications and Allergies Anastrozole [Arimidex] 1 mg PO DAILY 10/22/15 [History] Diclofenac Sodium [Voltaren] 75 mg PO BID 10/22/15 [History] Sertraline [Zoloft] 150 mg PO DAILY 10/22/15 [History] Simvastatin [Zocor] 20 mg PO HS 10/22/15 [History] amLODIPine [Norvasc] 5 mg PO DAILY 10/22/15 [History] Buspirone HCl [Buspar] 7.5 mg PO BID 03/04/18 [History] Calcium Carbonate/Vitamin D3 [Calcium 600 + Vit D Tablet] 1 each PO BID [History] Cholecalciferol (Vitamin D3) [Vitamin D3] 1,000 unit PO DAILY 03/04/18 [History] Donepezil HCl [Aricept] 5 mg PO HS 03/04/18 [History] Alendronate Sodium [Fosamax] 70 mg PO QWEEK 03/12/18 [History] HYDROcodone/Acet 7.5/325 mg [[place] 7.5-325 mg] 1 tab PO BID 03/12/18 [History] Latanoprost [Xalatan] 1 drop BOTH EYES HS 03/12/18 [History] 3 Allergy/AdvReac Type Severity Reaction Status Date / Time No Known Allergies Allergy Verified 03/04/18 12:09 - Meds/Allergy Pre-op Review Medications Reviewed: Yes Allergies Reviewed: Yes Beta Blockers on Current Med List: No Anesthesia Results - Labs 03/27/18 00:52 03/27/18 00:52 Laboratory Tests 03/26/18 03/27/18 03/27/18 13:04 00:52 00:52 WBC 5.2 Hgb 10.0 L Hct 31.0 L Plt Count 179 PT 15.1 H INR 1.3 APTT 29.2 Sodium 135 L Potassium 3.7 Chloride 102 Carbon Dioxide 24 BUN 10 Creatinine 0.49 L Est GFR (Non-Af Amer) > 60 Glucose 101 Laboratory Results Impressions Wrist MRI 03/26/18 13:43 IMPRESSION: Image quality is degraded secondary to motion artifact. 1. Rim enhancing fluid collections noted along the dorsal aspect of the distal forearm and extending to the level of the wrist compatible with abscess formation. The largest collection measures approximately 0.6 x 1.0 x 1.4 cm. There is pronounced surrounding soft tissue edema and enhancement consistent with cellulitis. 2. Moderate size wrist effusion which is new compared with prior exam. The sterility of the joint fluid is indeterminate on imaging. Septic joint would be difficult to exclude given the soft tissue findings. 3. Tenosynovitis of the 2nd and 4th extensor compartments. 4. Indistinct appearance of the extensor digiti minimi tendon which may reflect tendinosis. Motion artifact does limit its evaluation. 5. Heterogeneous appearance of the marrow signal diffusely which may be related to underlying severe osteopenia. There is patchy marrow edema within the distal ulna and triquetrum with mild postcontrast enhancement. Findings may reflect reactive osteitis versus very early changes of osteomyelitis. 6. Partial tear of the scapholunate ligament complex with no evidence for pathologic widening of the scapholunate interval. 7. 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 8. 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 D/ / Paul Schafer MD / Paul Schafer MD Interpreting Provider: Paul Schafer MD Anesthesia Exam Vital Signs Temp Pulse Resp BP Pulse Ox 03/27/18 15:27 144/71 03/27/18 14:08 98.0 F 81 14 160/72 93 03/27/18 10:01 98.2 F 78 14 131/69 92 03/27/18 06:31 97.8 F 68 16 151/75 90 03/27/18 05:26 98.0 F 79 15 174/84 93 03/27/18 01:06 98.4 F 81 16 136/78 91 03/26/18 20:36 98.5 F 58 15 111/63 93 Height: 5'3" Weight: 150# BMI= 27 NPO (# of Hours): [place] Pain Scale Used: Numeric (1 - 10) - HEENT Pupil (Motor): Pupils equal, EOMI Mallampati: II Teeth: Normal, Missing Oral Opening: Greater than 3 - PAVILION CUTTER LOC: Oriented PAVILION CUTTER Motor: Normal RUE, Normal LUE, Normal RLE, Normal LLE, Normal Face PAVILION CUTTER Sensory: Normal: RUE, LUE, RLE, LLE, Face - Cardiac Rhythm: Regular Murmur: None - Pulmonary Breath Sounds: bilateral Clear Respiratory Effort: Symmetrical Anesthesia Assess/Plan ASA Score: 2 Modified [place] Scale for Level of Consciousness: Cooperative, oriented, and tranquil Anesthetic Plan: General Monitoring Plan: Standard Monitors Recovery Plan: PACU Anes Supervising Prov Stmt: Pt seen/evaluated, R&B Discussed, questions answered and consent obtained. Kev Razo MD
[2018-03-27] MEDS ORDERED: Bupivacaine/EPI 1:200k 0.5%PF 30 ML VIAL ONE (16:23)
[2018-03-27] MEDS ORDERED: *HR* Propofol 200 MG/20 ML VIAL IVP ONE (16:58)
[2018-03-27] MEDS ORDERED: *HR* FentaNYL (PF) 100 MCG/2 ML VIAL ONE (16:58)
[2018-03-27] MEDS ORDERED: Lidocaine -MPF 2% 2 ML VIAL ONE (17:00)
[2018-03-27] MEDS: *HR* Labetalol 20 MG/4 ML SYRINGE IVP PRN ×2 (18:07→19:27)
[2018-03-27] MEDS ORDERED: Vancomycin 1,000 MG VIAL ONE (18:32)
[2018-03-27] MEDS ORDERED: *HR* Morphine 2 MG/ML SYRINGE IVP PRN (18:54)
[2018-03-27] MEDS ORDERED: Ondansetron 4 MG/2 ML VIAL IVP ONE (18:54)
[2018-03-27] MEDS: *HR* Morphine 2 MG/ML SYRINGE IVP PRN ×4 (18:56→19:33)
[2018-03-27] MEDS ORDERED: *HR* Labetalol 20 MG/4 ML SYRINGE IVP ONE (19:05)
--- NOTE | 2018-03-27 19:29 | Orthopedic Operative Note ---
Date of procedure: 03/27/18 Procedure: OPERATIVE REPORT SURGEON: Thierno Cee MD PREOPERATIVE DIAGNOSIS: Persistent left dorsal hand and wrist cellulitis POSTOPERATIVE DIAGNOSIS: Persistent left dorsal hand and wrist cellulitis with underlying deep abscess PROCEDURE: Incision, drainage, irrigation, debridement of the left dorsal hand and wrist ANESTHESIA: Gen. anesthesia PREOPERATIVE NOTE The surgical plan was reviewed with the patient. The risks, benefits, alternatives, and potential complications of this procedure were discussed with the patient including injury to veins, arteries, nerves, tendons, ligaments, and bone. Also discussed were the risks of infection, bleeding, pain, blood clots, the possible need for a blood transfusion, the possible need for further procedures, heart attack, stroke, and . Additional risks include persistent symptoms and infection requiring repeat debridement. All of this was explained in simple terms, and the patient verbalized understanding and wished to proceed. Consent was given to proceed with surgery. PROCEDURE: The patient was seen in the preoperative holding area where the identify and the consent were confirmed. The left wrist was marked. Final questions were answered. The patient was brought back to the operating room and placed supine on the operating room table. A huddle was performed with the patient and all vital surgical team members confirming patient identity, the correct procedure, and the correct operative site. Gen. anesthesia was administered. The operative extremity was prepped and draped in the usual sterile fashion. A surgical time out was performed immediately preceding the incision with all personnel in the operating room to confirm patient identity, the correct operative site and extremity, correct radiographic studies, availability of appropriate surgical equipment, and agreement on the planned procedure. The tourniquet was inflated without exsanguination. The old incision was opened and extended proximally along the dorsal distal wrist and forearm area. Dissection proceeded carefully through the subcutaneous tissue down to the fascia which was opened and this did decompress a pocket of grossly purulent material, and 2 sets of swabs were sent for aerobic, anaerobic, acid-fast, and fungal cultures. Dissection proceeded distally to the dorsal wrist area where the retinaculum of the fourth dorsal compartment was opened and the contents reflected radially. The extensor digiti quinti was previously resected during the first operation. Eccentric carpi ulnaris was intact. A capsulotomy was performed and the midcarpal and radiocarpal joint spaces were evaluated and there was no grossly purulent material within the joint. The dorsal capsule of the distal radioulnar joint was also opened and there was no grossly purulent material. There is no significant necrotic material within the wound. The wound was copiously irrigated with 6 L of saline and very loosely closed over a [place] drain with interrupted nylon stitches. The tourniquet was deflated and a soft, sterile dressing was applied. The instrument, sponge, and needle counts were correct after wound closure. POST OPERATIVE PLAN: Continue IV antibiotics and follow cultures. Was there an therapeutic recreation assistant present: No Estimated blood loss (cc): 10
--- NOTE | 2018-03-27 20:13 | Anesthesia Evaluation Post Op ---
Date of Encounter: 03/27/18 Time of Encounter: 20:12 - Vital Signs Vital Signs: Vital Signs/O2 Sat, Most Current Temp Pulse Resp BP Pulse Ox 98.4 F 78 16 160/73 92 03/27/18 20:05 03/27/18 20:05 03/27/18 20:05 03/27/18 20:05 03/27/18 20:05 - Lungs Lungs: Clear Ascult./Percussion - Airway Airway: Non-obstructed - Cardiovascular Regular Rate - Mental Status Mental Status: Asleep with brisk response to light stimulation - Pain Pain Scale: 3 Pain Scale used: Numeric (1 - 10) - Nausea Vomiting Nausea Vomiting: Not Present - Hydration Hydration: Ice chips, Has not voided - Discharge PostOp Status: Transfer Patient to floor
[2018-03-27] MEDS: Latanoprost 2.5 ML BOTTLE BOTH EYES SCH (21:43)
[2018-03-27] MEDS ORDERED: Naloxone 0.4 MG/ML INJ IVP PRN (22:50)
[2018-03-27] MEDS ORDERED: Gadolinium Contrast Agent (WT Based) IV PRN (22:50)
[2018-03-28] MEDS ORDERED: OXYCODONE Oral CONC 10 MG/0.5 ML ORAL.SYG SL ONE (00:43)
[2018-03-28 02:12] LABS: Basophils % 0.3 %; Eosinophils # 0.1 K/mcL (0.0-0.6); Eosinophils % 1.2 %; Hematocrit 32.1 % (35.3-44.9); Hemoglobin 10.5 g/dL (11.5-15.4); Immature Granulocytes % 0.7 % (0-4); Lymphocytes # 0.5 K/mcL (0.6-4.6); Lymphocytes % 7.7 %; Mean Corpuscular HGB Conc 32.7 g/dL (31.6-35.5); Mean Corpuscular Volume 88.7 fL (83.0-100.0); Mean Platelet Volume 10.9 fL (9.4-12.4); Monocytes # 0.5 K/mcL (0.0-1.3); Monocytes % 6.8 %; Neutrophils # 5.8 K/mcL (1.6-8.9); Platelet Count 173 K/mcL (140-400); Red Blood Count 3.62 M/mcL (3.82-4.97); Red Cell Distribution Width 13.7 % (11.5-14.5); Segmented Neutrophils % 83.3 %
[2018-03-28 02:30] LABS: BUN/Creatinine Ratio 20 (6-26); Blood Urea Nitrogen 8 mg/dL (8-23); Calcium 8.1 mg/dL (8.6-10.3); Carbon Dioxide 25 mEq/L (23-29); Chloride 101 mEq/L (98-107); Glucose 153 mg/dL (70-105); Osmolality,Calculated 283 (280-300); Potassium 3.7 mEq/L (3.5-5.1); Sodium 136 mEq/L (136-145); eGFR For Non-African Americans > 60 (> 60)
[2018-03-28] MEDS: *HR* Heparin 5,000 UNIT/ML VIAL SQ SCH ×3 (05:20→20:54)
--- NOTE | 2018-03-28 07:45 | Orthopedics Progress Note ---
Date of Encounter: 03/28/18 Time of Encounter: 07:43 - Assessment and Plan (1) Cellulitis Current Visit: No Status: Acute Qualifiers: Site of cellulitis: extremity Site of cellulitis of extremity: upper extremity Laterality: left Qualified Code(s): L03.114 - Cellulitis of left upper limb Subjective Interval history: S: Expected postoperative pain to the left wrist O: Afebrile on the vital signs are stable Rosey drain is in place No significant drainage Improved swelling to the left wrist Erythema localized to the dorsal hand and dorsal wrist area Pain with motion of the wrist and digits She can grossly flex and extend the digits with limitation due to pain The fingertips are all grossly sensate and well-perfused, and the radial artery pulse is 2+. A: Post repeat I and D of the left wrist P: I did adjust the patient's pain medications to allow for breakthrough pain medication IV antibiotics per the ID team and the primary team, currently on vancomycin and Zosyn Follow cultures I did encourage motion exercises Elevation Objective Vital signs: Vital Signs Temp Pulse Resp BP Pulse Ox 03/28/18 06:54 98.5 F 99 15 135/72 92 03/28/18 04:00 98.1 F 70 15 130/72 95 03/28/18 00:52 98.3 F 79 15 131/62 97 03/27/18 22:54 97.7 F 85 16 117/70 91 03/27/18 21:53 98.1 F 84 16 143/79 94 03/27/18 20:21 98.0 F 80 14 152/76 91 03/27/18 20:05 98.4 F 78 16 160/73 92 03/27/18 19:50 77 16 168/80 94 03/27/18 19:35 76 18 174/70 93 03/27/18 19:25 77 18 175/102 94 03/27/18 19:15 80 18 161/83 95 03/27/18 19:05 82 18 191/88 95 03/27/18 18:55 83 20 173/90 94 03/27/18 18:45 98.4 F 80 18 182/90 98 03/27/18 15:27 144/71 03/27/18 14:08 98.0 F 81 14 160/72 93 03/27/18 10:01 98.2 F 78 14 131/69 92 Intake and Output 10/16/18 10/16/18 10/17/18 15:59 23:59 07:59 Intake Total 978 / 978 100 / 100 Output Total 400 / 400 400 / 400 Balance 578 / 578 -10 / -10 -300 / -300 Intake: IV Fluids 978 / 978 100 / 100 0.9 % Sodium Chloride 1,000 ML 878 / 878 @ 50 mls/hr IVC .Q20H [facility] Rx#: [id number] Zosyn 3.375 GM In 0.9 % Sodium 100 / 100 100 / 100 Chloride (Mini-Bag +) 100 ML @ 25 mls/hr IVPB Q8HR [facility] Rx#: [id number] Oral 0 / 0 0 / 0 Output: Urine 400 / 400 0 / 0 400 / 400 Estimated Blood Loss Other: Meal NPO Percent of Meal Consumed 0% Stool Size Small Stool Consistency liquid Stool Color Brown # Voids 1 # Bowel Movements 1 Blood Glucose* 77 67 - Labs CBC & BMP: 03/28/18 01:38 03/28/18 01:38 Labs: Abnormal lab results RBC 3.62 M/mcL (3.82-4.97) L 03/28/18 01:38 Hgb 10.5 g/dL (11.5-15.4) L 03/28/18 01:38 Hct 32.1 % (35.3-44.9) L 03/28/18 01:38 Lymphocytes # 0.5 K/mcL (0.6-4.6) L 03/28/18 01:38 ESR 35 mm/hr (0-15) H 03/26/18 13:04 PT 15.1 Seconds (9.4-12.1) H 03/26/18 13:04 Creatinine 0.40 mg/dL (0.60-1.20) L 03/28/18 01:38 Glucose 153 mg/dL (70-105) H 03/28/18 01:38 Calcium 8.1 mg/dL (8.6-10.3) L 03/28/18 01:38 C-Reactive Protein 203 mg/L (Less than 10) H 03/26/18 13:04 Serum Total Protein 5.9 g/dL (6.4-8.9) L 03/26/18 13:04 Albumin 2.9 g/dL (3.5-5.7) L 03/26/18 13:04 Albumin/Globulin Ratio 1.0 (1.1-2.2) L 03/26/18 13:04 Consult Discharge Plan - Plan Referrals: Bekah Ames CNP [Primary Care Provider] -
[2018-03-28] MEDS: *HR* OxyCODONE Immed Rel 5 MG TABLET PO PRN ×2 (08:04→23:30)
[2018-03-28] MEDS: Piperacillin/Tazobactam 3.375 GM in 0.9 % Sodium Chloride Mini Bag 100 ML IVPB SCH ×3 (08:08→23:34)
[2018-03-28 08:12] LABS: C-Reactive Protein 165 mg/L (Less than 10)
[2018-03-28] MEDS ORDERED: *HR* HYDROcodone/Acet 7.5/325 mg TABLET PO SCH (09:00)
[2018-03-28] MEDS ORDERED: Diclofenac Sodium 75 MG TABLET PO SCH (09:00)
--- NOTE | 2018-03-28 09:30 | Internal Med Progress Note ---
Hospitalist Progress Note - Encounter Date of Encounter: 03/28/18 Time of Encounter: 09:28 - Subjective Interval History: Patient seen and examined this morning. s/p I/D yesterday. C/o Lt wrist pain improved after getting pain medication. No fever, chills, N/V/D. - Exam Vitals: Temp Pulse Resp BP Pulse Ox 98.5 F 99 15 135/72 92 03/28/18 06:54 03/28/18 06:54 03/28/18 06:54 03/28/18 06:54 03/28/18 06:54 Exam: General: Patient is alert, oriented, no acute distress, Respiratory: CTAB, no wheezing, crackles, or rhonchi. Cardiovascular: RRR. s1 and s2 No clicks, rubs, gallops, or murmors. Abdomen: Abdomen is soft, nondistended. no Epigastric tenderness. Musculoskeletal: Decreased ROM in Lt wrist due to pain and swelling. Dressing in place on Lt hang/wrist. Skin: Just replaced dressing. Not examined. Neuro: Alert and oriented x4. Sensation light touch intact. Cranial nerves 2- 12 is intact. Not aphasic,, no focal deficit Psych: Patient's affect is normal. - Assessment and Plan (1) Cellulitis Current Visit: No Status: Acute (2) Mood disorder Current Visit: No Status: Acute (3) HTN (hypertension) Current Visit: No Status: Chronic (4) DVT prophylaxis Current Visit: No Status: Acute - Summary of Assessment and Plan Summary of Assessment and Plan: Cellululitis, abscess, ?OM - Left wrist cellulitis status post I&D on last admission in 03/15/2018 - MRI shows abscess, wrist effusion mod, cannot rule out septic joint, tenosynoviits 2nd, 4th, early osteomyelitis vs reactive osteitis - s/p POD1 of I/D, irrigation, debridement of the left dorsal hand and wrist - repeat 2 sets of swabs were sent for aerobic, anaerobic, acid-fast, and fungal cultures - c/w Vanc/zosyn awaiting cultures. Blood clture 03/26/18 NGTD. - Pain medication adjusted by ortho with [place] 5-325 q6h prn, roxicodone 10 q6hr pnr - ID following HTN - continue home amlodipine. Well controlled Mood disorder - continue home buspirone, sertraline DVT prophylaxis - heparin sc. - Time Spent with Patient Total time spent is greater than 50% in coordination of care (as documented) at patient's floor/unit and/or counseling patient: Internal Medicine: Result - Labs CBC & Chem 7: 03/28/18 01:38 03/28/18 01:38 Labs: Short CBC 03/28/18 Range/Units 01:38 WBC 6.9 (4.3-11.1) K/mcL Hgb 10.5 L (11.5-15.4) g/dL Hct 32.1 L (35.3-44.9) % Plt Count 173 (140-400) K/mcL Neutrophils # 5.8 (1.6-8.9) K/mcL BMP 03/28/18 01:38 Sodium 136 Potassium 3.7 Chloride 101 Carbon Dioxide 25 BUN 8 Creatinine 0.40 L Glucose 153 H Calcium 8.1 L - ABG Interpretation ABG results: PT/INR, D-dimer PT 15.1 Seconds (9.4-12.1) H 03/26/18 13:04 Consult Discharge Plan - Plan Referrals: Bekah Ames, MACHINE I COREMAKER [Primary Care Provider] - (1) Cellulitis Qualifiers: Site of cellulitis: extremity Site of cellulitis of extremity: upper extremity Laterality: left Qualified Code(s): L03.114 - Cellulitis of left upper limb (3) HTN (hypertension) Qualifiers: Hypertension type: essential hypertension Qualified Code(s): I10 - Essential (primary) hypertension
[2018-03-28] MEDS: Cholecalciferol (D-3) 1,000 UNIT TABLET PO SCH (09:39)
[2018-03-28] MEDS: Anastrozole 1 MG TABLET PO SCH (09:39)
[2018-03-28] MEDS: amLODIPine 5 MG TABLET PO SCH (09:39)
--- NOTE | 2018-03-28 12:57 | Infectious Disease Progress No ---
Date of Encounter: 03/28/18 Time of Encounter: 12:55 - Assessment and Plan (1) Abscess of left upper extremity Current Visit: Yes Status: Acute Location: Let wrist. Causative organism: unclear. Status post I & D for cellulitis and early abscess 03/15/18. Intra-op cultures were negative (the patient had been on IV antibiotics for 3 days prior). Started on broad-spectrum antibiotics including Vanc and Zosyn. MRI cannot rule out septic arthritis or osteomyelitis. ESR 35, CRP 203. Orthopedics consulted and following. Status post I & D and I & D of the dorsal hand and wrist 03/27/[address] Cee. Operative note reviewed. ABscess noted intra-op. No septic arthritis or OM noted. Cultures (aerobic, anaerobic, AFB, and fungal) are pending. Continue Vancomycin IV. Pharmacy to dose. Goal trough ~15. Continue Zosyn 3.375 grams IV Q8H. Duration of treatment depends on the clinical picture. Monitor renal function and for drug toxicity and dose-adjust antibiotics. Await cultures and de-escalate if/when able. (2) Cellulitis Current Visit: No Status: Acute Location: Left wrist. Causative organism unclear. MRI results noted. Orthopedics consulted. Continue antibiotics as above for now. Qualifiers: Site of cellulitis: extremity Site of cellulitis of extremity: upper extremity Laterality: left Qualified Code(s): L03.114 - Cellulitis of left upper limb (3) Transient synovitis, unspecified wrist Current Visit: Yes Status: Acute Qualifiers: Laterality: right Qualified Code(s): M67.331 - Transient synovitis, right wrist (4) HTN (hypertension) Current Visit: No Status: Chronic Qualifiers: Hypertension type: essential hypertension Qualified Code(s): I10 - Essential (primary) hypertension - Subjective Interval history: Patient seen and examined. No acute events noted overnight. Patient resting quietly in bed. Status post irrigation and debridement of the left hand and wrist 03/27/[address] Ribeiro. States she does have some mild pain in the left wrist, but improved since having her pain medication regimen adjusted. Denies any fevers or chills or rigors. Denies chest pain, shortness of breath, or cough. Denies any nausea, vomiting, diarrhea, constipation. Reports her last BM was 1-2 days prior to admission. Denies any abdominal pain or urinary complai nts. States her appetite is not very good. She denies any oral thrush and no skin lesions. Infect Dis PN-Objective Data - Labs CBC & Chem 7: 03/28/18 01:38 03/28/18 01:38 Labs: Laboratory Results - last 24 hr 03/28/18 03/28/18 03/28/18 01:38 01:38 01:38 WBC 6.9 RBC 3.62 L Hgb 10.5 L Hct 32.1 L MCV 88.7 MCH 29.0 MCHC 32.7 RDW 13.7 Plt Count 173 MPV 10.9 Immature Gran % 0.7 Seg Neutrophils % 83.3 Lymphocytes % 7.7 Monocytes % 6.8 Eosinophils % 1.2 Basophils % 0.3 Neutrophils # 5.8 Lymphocytes # 0.5 L Monocytes # 0.5 Eosinophils # 0.1 Basophils # 0.0 ESR 32 H Sodium 136 Potassium 3.7 Chloride 101 Carbon Dioxide 25 BUN 8 Creatinine 0.40 L Est GFR ( Amer) > 60 Est GFR (Non-Af Amer) > 60 BUN/Creatinine Ratio 20 Glucose 153 H Calculated Osmolality 283 Calcium 8.1 L C-Reactive Protein 165 H Cultures: Cultures 03/26/18 13:04 Blood Culture - Preliminary Peripheral Venipuncture Culture is incubating and being continuously monitored for growth. Final report to follow. Exam - Constitutional Vitals: Temp Pulse Resp BP Pulse Ox 97.8 F 95 16 124/66 92 03/28/18 10:03 03/28/18 10:03 03/28/18 10:03 03/28/18 10:03 03/28/18 10:03 General appearance: average body habitus, cooperative, no acute distress - Head Head exam: Present: atraumatic, normal inspection, normocephalic - Eye Eye exam: Present: EOMI, normal appearance, PERRL Pupils: Present: normal accommodation - ENT ENT exam: Present: mucous membranes moist - Neck Neck exam: Present: normal inspection - Respiratory Respiratory exam: Present: CTAB. Absent: rales, respiratory distress, rhonchi, wheezes - Cardiovascular Cardiovascular exam: Present: +S1, +S2 - GI/Abdominal GI/Abdominal exam: Present: normal bowel sounds, soft. Absent: distended, tenderness - Extremities Exam Extremities exam: Absent: normal inspection (Left hand/wrist dressing intact with small amount of bright red blood noted. + M/S to the distal extremity. ROM of the finger limited due to pain in the wrist. Left wrist ROM not assessed.) - Neurological Exam Neurological exam: Present: alert, oriented X3, no focal deficits - Psychiatric Psychiatric exam: Present: normal affect, normal mood - Skin Skin exam: Present: dry, intact, normal color, warm Consult Discharge Plan - Plan Referrals: Bekah Ames SE[employer] CLEANING MANAGER [Primary Care Provider] - - Attending Attestation I examined this patient and my medical decision-making was reviewed with the Resident Physician. I agree with the documented findings, disposition and treatment plan as described except to the extent set forth below.
[2018-03-28] MEDS: Diclofenac Sodium 75 MG TABLET PO SCH (16:45)
[2018-03-28] MEDS: Latanoprost 2.5 ML BOTTLE BOTH EYES SCH (21:02)
[2018-03-29] MEDS ORDERED: Ondansetron 4 MG/2 ML VIAL ONE (10:46)
[2018-03-29] MEDS ORDERED: *HR* OxyCODONE Immed Rel 5 MG TABLET PO ONE (10:54)
[2018-03-29] MEDS ORDERED: amLODIPine 5 MG TABLET PO ONE (10:54)
[2018-03-29] MEDS ORDERED: Ondansetron 4 MG/2 ML VIAL IVP ONE (10:54)
[2018-03-29] MEDS ORDERED: Diclofenac Sodium 75 MG TABLET PO ONE (10:54)
[2018-03-29] MEDS ORDERED: Piperacillin/Tazobactam 3.375 GM VIAL IVPB ONE (10:54)
[2018-03-29] MEDS ORDERED: Cholecalciferol (D-3) 1,000 UNIT TABLET PO ONE (10:54)
[2018-03-29] MEDS ORDERED: 0.9 % Sodium Chloride (Mini-Bag +) 100 ML IVBAG IVC ONE (10:54)
[2018-03-29] MEDS ORDERED: *HR* Heparin 5,000 UNIT/ML VIAL IVP ONE (10:54)
[2018-03-29] MEDS ORDERED: Anastrozole 1 MG TABLET PO ONE ×2 (10:54)
[2018-03-29] MEDS: *HR* Heparin 5,000 UNIT/ML VIAL SQ SCH ×3 (11:51→22:00)
[2018-03-29] MEDS: Diclofenac Sodium 75 MG TABLET PO SCH ×2 (11:51→17:59)
[2018-03-29] MEDS: Piperacillin/Tazobactam 3.375 GM in 0.9 % Sodium Chloride Mini Bag 100 ML IVPB SCH ×3 (11:51→23:42)
[2018-03-29] MEDS: amLODIPine 5 MG TABLET PO SCH (11:52)
[2018-03-29] MEDS: Cholecalciferol (D-3) 1,000 UNIT TABLET PO SCH (11:52)
--- NOTE | 2018-03-29 12:19 | Internal Med Progress Note ---
Hospitalist Progress Note - Encounter Date of Encounter: 03/29/18 Time of Encounter: 10:23 - Subjective Interval History: Patient seen and examined this morning. s/p I/D POD2. C/o Lt wrist pain. Now better controlled. No fever, chills, N/V/D. - Exam Vitals: Temp Pulse Resp BP Pulse Ox 97.4 F L 79 16 109/63 93 03/29/18 00:44 03/29/18 00:44 03/29/18 00:44 03/29/18 00:44 03/29/18 00:44 Exam: General: Patient is alert, oriented, no acute distress, Respiratory: CTAB, no wheezing, crackles, or rhonchi. Cardiovascular: RRR. s1 and s2 No clicks, rubs, gallops, or murmors. Abdomen: Abdomen is soft, nondistended. no Epigastric tenderness. Musculoskeletal: Decreased ROM in Lt wrist due to pain and swelling. Dressing in place on Lt hang/wrist. Skin: Just replaced dressing. Not examined. Neuro: Alert and oriented x4. Sensation light touch intact. Cranial nerves 2- 12 is intact. Not aphasic,, no focal deficit Psych: Patient's affect is normal. - Assessment and Plan (1) Cellulitis Current Visit: No Status: Acute (2) Mood disorder Current Visit: No Status: Acute (3) HTN (hypertension) Current Visit: No Status: Chronic (4) DVT prophylaxis Current Visit: No Status: Acute - Summary of Assessment and Plan Summary of Assessment and Plan: Cellululitis, abscess, ?OM - Left wrist cellulitis status post I&D on last admission in 03/15/2018 - MRI shows abscess, wrist effusion mod, cannot rule out septic joint, tenosynoviits 2nd, 4th, early osteomyelitis vs reactive osteitis - s/p POD2 of I/D, irrigation, debridement of the left dorsal hand and wrist - 2 sets cultures sent for aerobic, anaerobic, acid-fast, and fungal cultures. No growth on prelim. - c/w Vanc/zosyn awaiting cultures. Blood clture 03/26/18 NGTD. - Pain medication adjusted by ortho with [place] 5-325 q6h prn, roxicodone 10 q6hr pnr. Currenlty well controlled. - ID following. HTN - continue home amlodipine. Well controlled Mood disorder - continue home buspirone, sertraline DVT prophylaxis - heparin sc. - Time Spent with Patient Total time spent is greater than 50% in coordination of care (as documented) at patient's floor/unit and/or counseling patient: Internal Medicine: Result - Labs CBC & Chem 7: 03/28/18 01:38 03/28/18 01:38 - ABG Interpretation ABG results: PT/INR, D-dimer PT 15.1 Seconds (9.4-12.1) H 03/26/18 13:04 Consult Discharge Plan - Plan Referrals: Bekah Ames, [employer]GR[employer] [Primary Care Provider] - (1) Cellulitis Qualifiers: Site of cellulitis: extremity Site of cellulitis of extremity: upper extremity Laterality: left Qualified Code(s): L03.114 - Cellulitis of left upper limb (3) HTN (hypertension) Qualifiers: Hypertension type: essential hypertension Qualified Code(s): I10 - Essential (primary) hypertension
[2018-03-29] MEDS: Anastrozole 1 MG TABLET PO SCH (13:28)
--- NOTE | 2018-03-29 13:57 | Infectious Disease Progress No ---
Date of Encounter: 03/29/18 Time of Encounter: 10:50 - Assessment and Plan (1) Abscess of left upper extremity Current Visit: Yes Status: Acute Location: Let wrist. Causative organism: unclear. Status post I & D for cellulitis and early abscess 03/15/18. Intra-op cultures were negative (the patient had been on IV antibiotics for 3 days prior). Started on broad-spectrum antibiotics including Vanc and Zosyn. MRI cannot rule out septic arthritis or osteomyelitis. ESR 35, CRP 203. Orthopedics consulted and following. Status post I & D and I & D of the dorsal hand and wrist 03/27/[address] Cee. Operative note reviewed. ABscess noted intra-op. No septic arthritis or OM noted. Cultures (aerobic, anaerobic, and fungal) are no growth. AFB negative. Continue Vancomycin IV. Pharmacy to dose. Goal trough ~15. Continue Zosyn 3.375 grams IV Q8H. Duration of treatment depends on the clinical picture. Will likely plan to treat with IV antibiotics for two weeks post-op. Recommend Vancomycin and Levaquin if cultures remain negative. Plan to treat through 04/09/18. Monitor renal function and for drug toxicity and dose-adjust antibiotics. Await cultures and de-escalate if/when able. Consult VAT prior to discharge for PICC line placement. Will need weekly CBC, BUN/Cr, ESR, CRP, and Vanc trough. Will need weekly PICC care per protocol. Follow up with ID 04/05/18 at 0840. (2) Cellulitis Current Visit: No Status: Acute Location: Left wrist. Causative organism unclear. MRI results noted. Orthopedics consulted. Continue antibiotics as above for now. Qualifiers: Site of cellulitis: extremity Site of cellulitis of extremity: upper extremity Laterality: left Qualified Code(s): L03.114 - Cellulitis of left upper limb (3) Transient synovitis, unspecified wrist Current Visit: Yes Status: Acute Qualifiers: Laterality: right Qualified Code(s): M67.331 - Transient synovitis, right wrist (4) HTN (hypertension) Current Visit: No Status: Chronic Qualifiers: Hypertension type: essential hypertension Qualified Code(s): I10 - Essential (primary) hypertension - Subjective Interval history: Patient seen and examined. No acute events noted overnight. Patient resting quietly in bed. Status post irrigation and debridement of the left hand and wrist 03/27/[address] Ribeiro. States she does have some mild pain in the left wrist that is a little worse today. Denies any fevers or chills or rigors. Denies chest pain, shortness of breath, or cough. Denies any vomiting or diarrhea. Reports nausea this morning that started after breakfast. States she had a BM this morning. Denies any abdominal pain or urinary complaints. States her appetite is not very good. She denies any oral thrush and no skin lesions. Infect Dis PN-Objective Data - Labs CBC & Chem 7: 03/30/18 04:31 03/30/18 04:31 Labs: Laboratory Results - last 24 hr 03/27/18 03/27/18 03/28/18 11:14 17:24 16:58 POC Glucose 77 67 L Vancomycin Trough 6 Cultures: Cultures 03/27/18 18:14 Wound Culture - Preliminary Left Wrist - Abscess No growth. 03/27/18 18:14 Acid Fast Stain - Final Left Wrist - Abscess 03/26/18 13:04 Blood Culture - Preliminary Peripheral Venipuncture Culture is incubating and being continuously monitored for growth. Final report to follow. Exam - Constitutional Vitals: Temp Pulse Resp BP Pulse Ox 98.3 F 81 18 98/61 90 03/29/18 12:17 03/29/18 12:17 03/29/18 12:17 03/29/18 12:17 03/29/18 12:17 General appearance: average body habitus, cooperative, no acute distress - Head Head exam: Present: atraumatic, normal inspection, normocephalic - Eye Eye exam: Present: EOMI, normal appearance, PERRL Pupils: Present: normal accommodation - ENT ENT exam: Present: mucous membranes moist - Neck Neck exam: Present: normal inspection - Respiratory Respiratory exam: Present: CTAB. Absent: rales, respiratory distress, rhonchi, wheezes - Cardiovascular Cardiovascular exam: Present: RRR, +S1, +S2 - GI/Abdominal GI/Abdominal exam: Present: normal bowel sounds, soft. Absent: distended, tenderness - Extremities Exam Extremities exam: Present: joint swelling (Left wrist), tenderness (Left wrist/hand). Absent: normal inspection (Left wrist/hand dressing C/D/I.), pedal edema - Neurological Exam Neurological exam: Present: alert, oriented X3, no focal deficits - Psychiatric Psychiatric exam: Present: normal affect, normal mood - Skin Skin exam: Present: dry, intact, normal color, warm Consult Discharge Plan - Plan Referrals: Bekah Ames CNP [Primary Care Provider] - Christina Yee CNP [Advanced Practice Nurse] - 04/05/18 8:40 am - Attending Attestation I examined this patient and my medical decision-making was reviewed with the Resident Physician. I agree with the documented findings, disposition and treatment plan as described except to the extent set forth below.
[2018-03-29] MEDS: *HR* OxyCODONE Immed Rel 5 MG TABLET PO PRN ×2 (18:00→21:59)
--- NOTE | 2018-03-29 18:15 | Orthopedics Progress Note ---
Date of Encounter: 03/29/18 Time of Encounter: 18:13 - Assessment and Plan (1) Cellulitis Current Visit: No Status: Acute Qualifiers: Site of cellulitis: extremity Site of cellulitis of extremity: upper extremity Laterality: left Qualified Code(s): L03.114 - Cellulitis of left upper limb Subjective Interval history: S: Expected postoperative pain to the left wrist O: Afebrile on the vital signs are stable Rosey drain is in place Moderate drainage with no purulence Moderate swelling to the left wrist and hand area Erythema localized to the dorsal hand and dorsal wrist area without change Pain with motion of the wrist and digits She can grossly flex and extend the digits with limitation due to pain The fingertips are all grossly sensate and well-perfused, and the radial artery pulse is 2+. A: Post repeat I and D of the left wrist P: IV antibiotics per the ID team and the primary team, currently on vancomycin and Zosyn Follow cultures I did encourage motion exercises Elevation I did keep the [place] drain in place given the drainage. Objective Vital signs: Vital Signs Temp Pulse Resp BP Pulse Ox 03/29/18 16:07 98.9 F 90 16 108/68 93 03/29/18 12:17 98.3 F 81 18 98/61 90 03/29/18 00:44 97.4 F L 79 16 109/63 93 03/28/18 18:48 97.9 F 84 15 92/56 96 Intake and Output 03/29/18 03/29/18 03/29/18 07:59 15:59 23:59 Intake Total 100 / 100 240 / 240 0 / 0 Balance 100 / 100 240 / 240 0 / 0 Intake: IV Fluids 100 / 100 Zosyn 3.375 GM In 0.9 % Sodium 100 / 100 Chloride (Mini-Bag +) 100 ML @ 25 mls/hr IVPB Q8HR [facility] Rx#: [id number] Oral 240 / 240 0 / 0 Other: Meal Lunch Percent of Meal Consumed 100% # Voids 1 - Labs CBC & BMP: 03/28/18 01:38 03/28/18 01:38 Labs: Abnormal lab results RBC 3.62 M/mcL (3.82-4.97) L 03/28/18 01:38 Hgb 10.5 g/dL (11.5-15.4) L 03/28/18 01:38 Hct 32.1 % (35.3-44.9) L 03/28/18 01:38 Lymphocytes # 0.5 K/mcL (0.6-4.6) L 03/28/18 01:38 ESR 32 mm/hr (0-15) H 03/28/18 01:38 PT 15.1 Seconds (9.4-12.1) H 03/26/18 13:04 Creatinine 0.40 mg/dL (0.60-1.20) L 03/28/18 01:38 Glucose 153 mg/dL (70-105) H 03/28/18 01:38 POC Glucose 67 mg/dL (70-99) L 03/27/18 17:24 Calcium 8.1 mg/dL (8.6-10.3) L 03/28/18 01:38 C-Reactive Protein 165 mg/L (Less than 10) H 03/28/18 01:38 Serum Total Protein 5.9 g/dL (6.4-8.9) L 03/26/18 13:04 Albumin 2.9 g/dL (3.5-5.7) L 03/26/18 13:04 Albumin/Globulin Ratio 1.0 (1.1-2.2) L 03/26/18 13:04 Consult Discharge Plan - Plan Referrals: Bekah Ames CNP [Primary Care Provider] - Christina Yee CNP [Advanced Practice Nurse] - 04/05/18 8:40 am
[2018-03-29] MEDS: Latanoprost 2.5 ML BOTTLE BOTH EYES SCH (19:46)
[2018-03-30] MEDS: *HR* OxyCODONE Immed Rel 5 MG TABLET PO PRN ×3 (03:45→22:07)
[2018-03-30 04:53] LABS: Basophils % 0.2 %; Eosinophils # 0.2 K/mcL (0.0-0.6); Eosinophils % 3.3 %; Hematocrit 33.3 % (35.3-44.9); Hemoglobin 10.4 g/dL (11.5-15.4); Immature Granulocytes % 0.4 % (0-4); Lymphocytes # 0.7 K/mcL (0.6-4.6); Lymphocytes % 15.6 %; Mean Corpuscular HGB Conc 31.2 g/dL (31.6-35.5); Mean Corpuscular Hemoglobin 28.5 pg (28.0-33.3); Mean Corpuscular Volume 91.2 fL (83.0-100.0); Mean Platelet Volume 10.3 fL (9.4-12.4); Monocytes # 0.4 K/mcL (0.0-1.3); Monocytes % 9.4 %; Neutrophils # 3.2 K/mcL (1.6-8.9); Platelet Count 149 K/mcL (140-400); Red Blood Count 3.65 M/mcL (3.82-4.97); Red Cell Distribution Width 14.1 % (11.5-14.5); Segmented Neutrophils % 71.1 %
[2018-03-30 05:14] LABS: BUN/Creatinine Ratio 18 (6-26); Blood Urea Nitrogen 9 mg/dL (8-23); C-Reactive Protein 143 mg/L (Less than 10); Calcium 8.1 mg/dL (8.6-10.3); Carbon Dioxide 29 mEq/L (23-29); Chloride 103 mEq/L (98-107); Glucose 97 mg/dL (70-105); Osmolality,Calculated 285 (280-300); Potassium 3.8 mEq/L (3.5-5.1); Sodium 138 mEq/L (136-145); eGFR For Non-African Americans > 60 (> 60)
[2018-03-30] MEDS: *HR* Heparin 5,000 UNIT/ML VIAL SQ SCH ×3 (06:28→22:09)
--- NOTE | 2018-03-30 07:40 | Orthopedics Progress Note ---
Date of Encounter: 03/30/18 Time of Encounter: 07:38 - Assessment and Plan (1) Cellulitis Current Visit: No Status: Acute Qualifiers: Site of cellulitis: extremity Site of cellulitis of extremity: upper extremity Laterality: left Qualified Code(s): L03.114 - Cellulitis of left upper limb Subjective Interval history: S: Expected postoperative pain to the left wrist O: Afebrile on the vital signs are stable Rosey drain is removed Mild drainage Moderate swelling to the left wrist and hand area Erythema localized to the dorsal hand and dorsal wrist area with minimal improvement Pain with motion of the wrist and digits She can grossly flex and extend the digits with limitation due to pain The fingertips are all grossly sensate and well-perfused, and the radial artery pulse is 2+. A: Post repeat I and D of the left wrist P: She does seem to be improving, but very slowly. CRP is slowly declining but remains significantly elevated I do not feel that there is further purulence to drain IV antibiotics per the ID team and the primary team, currently on vancomycin and Zosyn Continue treatment through the I will reevaluate Monday Follow cultures I did encourage motion exercises Elevation Objective Vital signs: Vital Signs Temp Pulse Resp BP Pulse Ox 03/30/18 06:58 97.6 F 63 16 113/71 96 03/30/18 03:44 97.6 F 65 14 117/78 98 03/29/18 23:41 98.5 F 81 16 117/67 98 03/29/18 19:15 98.3 F 83 14 126/72 96 03/29/18 16:07 98.9 F 90 16 108/68 93 03/29/18 12:17 98.3 F 81 18 98/61 90 Intake and Output 03/29/18 03/29/18 03/30/18 15:59 23:59 07:59 Intake Total 240 / 240 220 / 220 470 / 470 Output Total 250 / 250 0 / 0 Balance 240 / 240 -30 / -30 470 / 470 Intake: IV Fluids 100 / 100 350 / 350 Zosyn 3.375 GM In 0.9 % Sodium 100 / 100 100 / 100 Chloride (Mini-Bag +) 100 ML @ 25 mls/hr IVPB Q8HR [facility] Rx#: [id number] Vancocin 1,250 MG In 0.9 % 250 / 250 Sodium Chloride 250 ML @ 166.67 mls/hr IVPB Q24H [facility] Rx#: [id number] Oral 240 / 240 120 / 120 120 / 120 Output: Urine 250 / 250 0 / 0 Other: Meal Lunch Percent of Meal Consumed 100% # Voids 1 Weight 72 kg Patient Weight 03/30/18 23:59 Weight 72 kg - Labs CBC & BMP: 03/30/18 04:31 03/30/18 04:31 Labs: Abnormal lab results RBC 3.65 M/mcL (3.82-4.97) L 03/30/18 04:31 Hgb 10.4 g/dL (11.5-15.4) L 03/30/18 04:31 Hct 33.3 % (35.3-44.9) L 03/30/18 04:31 MCHC 31.2 g/dL (31.6-35.5) L 03/30/18 04:31 ESR 22 mm/hr (0-15) H 03/30/18 04:31 PT 15.1 Seconds (9.4-12.1) H 03/26/18 13:04 Creatinine 0.51 mg/dL (0.60-1.20) L 03/30/18 04:31 POC Glucose 67 mg/dL (70-99) L 03/27/18 17:24 Calcium 8.1 mg/dL (8.6-10.3) L 03/30/18 04:31 C-Reactive Protein 143 mg/L (Less than 10) H 03/30/18 04:31 Serum Total Protein 5.9 g/dL (6.4-8.9) L 03/26/18 13:04 Albumin 2.9 g/dL (3.5-5.7) L 03/26/18 13:04 Albumin/Globulin Ratio 1.0 (1.1-2.2) L 03/26/18 13:04 Consult Discharge Plan - Plan Referrals: Bekah Ames CNP [Primary Care Provider] - Christina Yee CNP [Advanced Practice Nurse] - 04/05/18 8:40 am
[2018-03-30] MEDS ORDERED: Lidocaine -MPF 1% 5 ML AMPUL INFILT ONE (08:18)
[2018-03-30] MEDS: Cholecalciferol (D-3) 1,000 UNIT TABLET PO SCH (08:33)
[2018-03-30] MEDS: Anastrozole 1 MG TABLET PO SCH (08:34)
[2018-03-30] MEDS: amLODIPine 5 MG TABLET PO SCH (08:34)
[2018-03-30] MEDS: Diclofenac Sodium 75 MG TABLET PO SCH ×2 (08:34→17:18)
[2018-03-30] MEDS: Piperacillin/Tazobactam 3.375 GM in 0.9 % Sodium Chloride Mini Bag 100 ML IVPB SCH ×2 (08:35→17:19)
--- NOTE | 2018-03-30 10:09 | Infectious Disease Progress No ---
Date of Encounter: 03/30/18 Time of Encounter: 10:06 - Assessment and Plan (1) Abscess of left upper extremity Current Visit: Yes Status: Acute Location: Let wrist. Causative organism: unclear. Status post I & D for cellulitis and early abscess 03/15/18. Intra-op cultures were negative (the patient had been on IV antibiotics for 3 days prior). Started on broad-spectrum antibiotics including Vanc and Zosyn. MRI cannot rule out septic arthritis or osteomyelitis. ESR 35, CRP 203. Orthopedics consulted and following. Status post I & D and I & D of the dorsal hand and wrist 03/27/[address] Cee. Operative note reviewed. ABscess noted intra-op. No septic arthritis or OM noted. Cultures (aerobic, anaerobic, and fungal) are no growth. AFB negative. Continue Vancomycin IV. Pharmacy to dose. Goal trough ~15. Continue Zosyn 3.375 grams IV Q8H. Duration of treatment depends on the clinical picture. Will likely plan to treat with IV antibiotics for two weeks post-op. Recommend Vancomycin and Levaquin if cultures remain negative. Plan to treat through 04/09/18. career services assistant to assist with discharge planning. The patient will likely require rehab placement on discharge to complete course of treatment as it does not sound like she has family at home that are able to help. Monitor renal function and for drug toxicity and dose-adjust antibiotics. Await cultures and de-escalate if/when able. Consult VAT prior to discharge for PICC line placement. Will need weekly CBC, BUN/Cr, ESR, CRP, and Vanc trough. Will need weekly PICC care per protocol. Follow up with ID 04/05/18 at 0840. (2) Cellulitis Current Visit: No Status: Acute Location: Left wrist. Causative organism unclear. MRI results noted. Orthopedics consulted. Continue antibiotics as above for now. Qualifiers: Site of cellulitis: extremity Site of cellulitis of extremity: upper extremity Laterality: left Qualified Code(s): L03.114 - Cellulitis of left upper limb (3) Transient synovitis, unspecified wrist Current Visit: Yes Status: Acute Qualifiers: Laterality: right Qualified Code(s): M67.331 - Transient synovitis, right wrist (4) HTN (hypertension) Current Visit: No Status: Chronic Qualifiers: Hypertension type: essential hypertension Qualified Code(s): I10 - Essential (primary) hypertension - Subjective Interval history: Patient seen and examined. No acute events noted overnight. Patient resting quietly in bed. Status post irrigation and debridement of the left hand and wrist 03/27/[address] Ribeiro. States she does have some mild pain in the left wrist that is better today. ROM improved. Denies any fevers or chills or rigors. Denies chest pain, shortness of breath, or cough. Denies any vomiting or diarrhea. States she had a BM this morning. Reports nausea and appetite are i mproved. Denies any abdominal pain or urinary complaints. She denies any oral thrush and no skin lesions. Infect Dis PN-Objective Data - Labs CBC & Chem 7: 03/30/18 04:31 03/30/18 04:31 Labs: Laboratory Results - last 24 hr 03/30/18 03/30/18 03/30/18 04:31 04:31 04:31 WBC 4.5 RBC 3.65 L Hgb 10.4 L Hct 33.3 L MCV 91.2 MCH 28.5 MCHC 31.2 L RDW 14.1 Plt Count 149 MPV 10.3 Immature Gran % 0.4 Seg Neutrophils % 71.1 Lymphocytes % 15.6 Monocytes % 9.4 Eosinophils % 3.3 Basophils % 0.2 Neutrophils # 3.2 Lymphocytes # 0.7 Monocytes # 0.4 Eosinophils # 0.2 Basophils # 0.0 ESR 22 H Sodium 138 Potassium 3.8 Chloride 103 Carbon Dioxide 29 BUN 9 Creatinine 0.51 L Est GFR ( Amer) > 60 Est GFR (Non-Af Amer) > 60 BUN/Creatinine Ratio 18 Glucose 97 Calculated Osmolality 285 Calcium 8.1 L C-Reactive Protein 143 H Cultures: Cultures 03/27/18 18:14 Wound Culture - Final Left Wrist - Abscess No growth. 03/27/18 18:14 Acid Fast Stain - Final Left Wrist - Abscess 03/26/18 13:04 Blood Culture - Preliminary Peripheral Venipuncture Culture is incubating and being continuously monitored for growth. Final report to follow. Exam - Constitutional Vitals: Temp Pulse Resp BP Pulse Ox 97.6 F 63 16 113/71 96 03/30/18 06:58 03/30/18 06:58 03/30/18 06:58 03/30/18 06:58 03/30/18 06:58 General appearance: average body habitus, cooperative, no acute distress - Head Head exam: Present: atraumatic, normal inspection, normocephalic - Eye Eye exam: Present: EOMI, normal appearance, PERRL Pupils: Present: normal accommodation - ENT ENT exam: Present: mucous membranes moist - Neck Neck exam: Present: normal inspection - Respiratory Respiratory exam: Present: CTAB. Absent: rales, respiratory distress, rhonchi, wheezes - Cardiovascular Cardiovascular exam: Present: RRR, +S1, +S2 - GI/Abdominal GI/Abdominal exam: Present: normal bowel sounds, soft. Absent: distended, tenderness - Extremities Exam Extremities exam: Present: tenderness (Left wrist/hand). Absent: full ROM (ROM of the left wrist/hand improved, but still very limited.), normal inspection (Left wrist/hand dressing C/D/I.), pedal edema - Neurological Exam Neurological exam: Present: alert, oriented X3, no focal deficits - Psychiatric Psychiatric exam: Present: normal affect, normal mood - Skin Skin exam: Present: dry, intact, normal color, warm Consult Discharge Plan - Plan Referrals: Bekah Ames CNP [Primary Care Provider] - Christina Yee CNP [Advanced Practice Nurse] - 04/05/18 8:40 am - Attending Attestation I examined this patient and my medical decision-making was reviewed with the Resident Physician. I agree with the documented findings, disposition and treatment plan as described except to the extent set forth below.
--- NOTE | 2018-03-30 10:13 | Internal Med Progress Note ---
Hospitalist Progress Note - Encounter Date of Encounter: 03/30/18 Time of Encounter: 10:11 - Subjective Interval History: Patient seen and examined this morning. s/p I/D POD3. Lt wrist pain now better controlled. No fever, chills, N/V/D. Tolerating diet well. Wrist mobility improving. - Exam Vitals: Temp Pulse Resp BP Pulse Ox 97.6 F 63 16 113/71 96 03/30/18 06:58 03/30/18 06:58 03/30/18 06:58 03/30/18 06:58 03/30/18 06:58 Exam: General: Patient is alert, oriented, no acute distress, Respiratory: CTAB, no wheezing, crackles, or rhonchi. Cardiovascular: RRR. s1 and s2 No clicks, rubs, gallops, or murmors. Abdomen: Abdomen is soft, nondistended. no Epigastric tenderness. Musculoskeletal: Decreased ROM in Lt wrist due to pain and swelling. improving. Dressing in place on Lt wrist changed this morning. . Skin: Just replaced dressing. Not examined. Neuro: Alert and oriented x3. Sensation light touch intact. Cranial nerves 2- 12 is intact. Psych: Patient's affect is normal. - Assessment and Plan (1) Cellulitis Current Visit: No Status: Acute (2) Mood disorder Current Visit: No Status: Acute (3) HTN (hypertension) Current Visit: No Status: Chronic (4) DVT prophylaxis Current Visit: No Status: Acute - Summary of Assessment and Plan Summary of Assessment and Plan: Cellululitis, abscess, ?OM - Left wrist cellulitis/abscess status post I&D on last admission in 03/15/2018 - MRI shows abscess, wrist effusion mod, cannot rule out septic joint, tenosynoviits 2nd, 4th, early osteomyelitis vs reactive osteitis - s/p POD3 of I/D, irrigation, debridement of the left dorsal hand and wrist - 2 sets cultures sent for aerobic, anaerobic, acid-fast, and fungal cultures. No growth on prelim, however was on antibiotics at the time. Blood culture 03/26/18 NGTD. - c/w Vanc/zosyn. Will switch to Vancomycin and Levaquin before discharge if cultures negative. - Pain medication adjusted by ortho with [place] 5-325 q6h prn, roxicodone 10 q6hr pnr. Currenlty well controlled. - ID following. - To continue to monitor inpatient over weekend per Ortho. HTN - continue home amlodipine. Well controlled Mood disorder - continue home buspirone, sertraline DVT prophylaxis - heparin sc. Plan to go home on discharge. - Time Spent with Patient Total time spent is greater than 50% in coordination of care (as documented) at patient's floor/unit and/or counseling patient: Internal Medicine: Result - Labs CBC & Chem 7: 03/30/18 04:31 03/30/18 04:31 Labs: Short CBC 03/30/18 Range/Units 04:31 WBC 4.5 (4.3-11.1) K/mcL Hgb 10.4 L (11.5-15.4) g/dL Hct 33.3 L (35.3-44.9) % Plt Count 149 (140-400) K/mcL Neutrophils # 3.2 (1.6-8.9) K/mcL BMP 03/30/18 04:31 Sodium 138 Potassium 3.8 Chloride 103 Carbon Dioxide 29 BUN 9 Creatinine 0.51 L Glucose 97 Calcium 8.1 L - ABG Interpretation ABG results: PT/INR, D-dimer PT 15.1 Seconds (9.4-12.1) H 03/26/18 13:04 Consult Discharge Plan - Plan Referrals: Bekah Ames CNP [Primary Care Provider] - Christina Yee CNP [Advanced Practice Nurse] - 04/05/18 8:40 am (1) Cellulitis Qualifiers: Site of cellulitis: extremity Site of cellulitis of extremity: upper extremity Laterality: left Qualified Code(s): L03.114 - Cellulitis of left upper limb (3) HTN (hypertension) Qualifiers: Hypertension type: essential hypertension Qualified Code(s): I10 - Essential (primary) hypertension
[2018-03-30] MEDS: *HR* HYDROcodone/Acet 5/325 mg TABLET PO PRN (15:07)
[2018-03-30] MEDS: Latanoprost 2.5 ML BOTTLE BOTH EYES SCH (22:17)
[2018-03-31] MEDS: Piperacillin/Tazobactam 3.375 GM in 0.9 % Sodium Chloride Mini Bag 100 ML IVPB SCH ×3 (00:53→16:09)
[2018-03-31] MEDS: *HR* Heparin 5,000 UNIT/ML VIAL SQ SCH ×3 (04:33→18:40)
[2018-03-31] MEDS: *HR* OxyCODONE Immed Rel 5 MG TABLET PO PRN ×3 (04:33→17:24)
--- NOTE | 2018-03-31 06:39 | Orthopedics Progress Note ---
Date of Encounter: 03/31/18 Time of Encounter: 06:39 Subjective Interval history: Patient was seen this morning doing well without complaints. Afebrile vital signs stable. Operative extremity: Neurovascularly intact Dressing clean dry and intact Calves nontender Assessment and plan: Continue with postoperative care Continue antibiotics Objective Vital signs: Vital Signs Temp Pulse Resp BP Pulse Ox 03/31/18 03:31 98.7 F 79 14 126/70 95 03/30/18 23:20 99.1 F 84 14 130/74 94 03/30/18 19:01 99.2 F 86 18 102/56 94 03/30/18 14:12 97.7 F 64 16 114/71 90 03/30/18 10:49 98.1 F 87 16 111/62 89 03/30/18 06:58 97.6 F 63 16 113/71 96 Intake and Output 03/30/18 03/30/18 03/31/18 15:59 23:59 07:59 Intake Total 710 / 710 590 / 590 100 / 100 Output Total 200 / 200 Balance 510 / 510 590 / 590 100 / 100 Intake: IV Fluids 200 / 200 350 / 350 100 / 100 Zosyn 3.375 GM In 0.9 % Sodium 100 / 100 100 / 100 100 / 100 Chloride (Mini-Bag +) 100 ML @ 25 mls/hr IVPB Q8HR [facility] Rx#: [id number] Vancocin 1,000 MG In 0.9 % 250 / 250 Sodium Chloride 250 ML @ 166.67 mls/hr IVPB Q12H [facility] Rx#: [id number] Oral 510 / 510 240 / 240 Output: Urine 200 / 200 Other: Meal Lunch Percent of Meal Consumed 50% Stool Size Small Stool Consistency soft # Voids 1 1 # Bowel Movements 1 Weight 74.1 kg Patient Weight 03/31/18 23:59 Weight 74.1 kg - Labs CBC & BMP: 03/30/18 04:31 03/30/18 04:31 Labs: Abnormal lab results RBC 3.65 M/mcL (3.82-4.97) L 03/30/18 04:31 Hgb 10.4 g/dL (11.5-15.4) L 03/30/18 04:31 Hct 33.3 % (35.3-44.9) L 03/30/18 04:31 MCHC 31.2 g/dL (31.6-35.5) L 03/30/18 04:31 ESR 22 mm/hr (0-15) H 03/30/18 04:31 PT 15.1 Seconds (9.4-12.1) H 03/26/18 13:04 Creatinine 0.51 mg/dL (0.60-1.20) L 03/30/18 04:31 POC Glucose 67 mg/dL (70-99) L 03/27/18 17:24 Calcium 8.1 mg/dL (8.6-10.3) L 03/30/18 04:31 C-Reactive Protein 143 mg/L (Less than 10) H 03/30/18 04:31 Serum Total Protein 5.9 g/dL (6.4-8.9) L 03/26/18 13:04 Albumin 2.9 g/dL (3.5-5.7) L 03/26/18 13:04 Albumin/Globulin Ratio 1.0 (1.1-2.2) L 03/26/18 13:04 Consult Discharge Plan - Plan Referrals: Bekah Ames CNP [Primary Care Provider] - Christina Yee CNP [Advanced Practice Nurse] - 04/05/18 8:40 am
[2018-03-31] MEDS: amLODIPine 5 MG TABLET PO SCH (08:33)
[2018-03-31] MEDS: Anastrozole 1 MG TABLET PO SCH (08:33)
[2018-03-31] MEDS: Diclofenac Sodium 75 MG TABLET PO SCH ×2 (08:34→16:10)
[2018-03-31] MEDS: Cholecalciferol (D-3) 1,000 UNIT TABLET PO SCH (08:34)
--- NOTE | 2018-03-31 12:25 | Internal Med Progress Note ---
Hospitalist Progress Note - Encounter Date of Encounter: 03/31/18 Time of Encounter: 09:56 - Subjective Interval History: Patient seen and examined this morning. s/p I/D POD4. Lt wrist pain better controlled with pain medication. No fever, chills, N/V/D. Tolerating diet well. Wrist mobility improving. - Exam Vitals: Temp Pulse Resp BP Pulse Ox 98.1 F 76 14 139/72 93 03/31/18 10:18 03/31/18 10:18 03/31/18 10:18 03/31/18 10:18 03/31/18 10:18 Exam: General: Patient is alert, oriented, no acute distress, Respiratory: CTAB, no wheezing, crackles, or rhonchi. Cardiovascular: RRR. s1 and s2 No clicks, rubs, gallops, or murmors. Abdomen: Abdomen is soft, nondistended. no Epigastric tenderness. Musculoskeletal: Decreased ROM in Lt wrist due to pain and swelling. improving. Dressing in place on Lt wrist. Neuro: Alert and oriented x3. Sensation light touch intact. Cranial nerves 2- 12 is intact. Psych: Patient's affect is normal. - Assessment and Plan (1) Cellulitis Current Visit: No Status: Acute (2) Mood disorder Current Visit: No Status: Acute (3) HTN (hypertension) Current Visit: No Status: Chronic (4) DVT prophylaxis Current Visit: No Status: Acute - Summary of Assessment and Plan Summary of Assessment and Plan: Cellululitis, abscess, ?OM - Left wrist cellulitis/abscess status post I&D on last admission in 03/15/2018 - MRI shows abscess, wrist effusion mod, cannot rule out septic joint, tenosynoviits 2nd, 4th, early osteomyelitis vs reactive osteitis - s/p POD4 of I/D, irrigation, debridement of the left dorsal hand and wrist - 2 sets cultures sent for aerobic, anaerobic, acid-fast, and fungal cultures. No growth on prelim, however was on antibiotics at the time. Blood culture 03/26/18 NGTD. - c/w Vanc/zosyn. Will switch to Vancomycin and Levaquin before discharge if cultures negative. - c/w [place] 5-325 q6h prn, roxicodone 10 q6hr pnr. Currenlty pain well controlled. - To continue to monitor inpatient over weekend per Ortho. - c/w post operative care. HTN - continue home amlodipine. Well controlled Mood disorder - continue home buspirone, sertraline DVT prophylaxis - heparin sc. -Plan to go home on discharge with IV antibiotics to continue till 04/09/2018. - Time Spent with Patient Total time spent is greater than 50% in coordination of care (as documented) at patient's floor/unit and/or counseling patient: Internal Medicine: Result - Labs CBC & Chem 7: 03/30/18 04:31 03/30/18 04:31 - ABG Interpretation ABG results: PT/INR, D-dimer PT 15.1 Seconds (9.4-12.1) H 03/26/18 13:04 Consult Discharge Plan - Plan Referrals: Bekah Ames CNP [Primary Care Provider] - Christina Yee CNP [Advanced Practice Nurse] - 04/05/18 8:40 am (1) Cellulitis Qualifiers: Site of cellulitis: extremity Site of cellulitis of extremity: upper extremity Laterality: left Qualified Code(s): L03.114 - Cellulitis of left upper limb (3) HTN (hypertension) Qualifiers: Hypertension type: essential hypertension Qualified Code(s): I10 - Essential (primary) hypertension
[2018-03-31] MEDS: Ondansetron 4 MG/2 ML VIAL IVP PRN (17:24)
[2018-03-31] MEDS: Latanoprost 2.5 ML BOTTLE BOTH EYES SCH (21:40)
[2018-04-01] MEDS: Piperacillin/Tazobactam 3.375 GM in 0.9 % Sodium Chloride Mini Bag 100 ML IVPB SCH ×2 (00:16→09:38)
[2018-04-01] MEDS: *HR* HYDROcodone/Acet 5/325 mg TABLET PO PRN ×2 (05:08→13:20)
[2018-04-01] MEDS: Ondansetron 4 MG/2 ML VIAL IVP PRN (05:09)
[2018-04-01] MEDS: *HR* Heparin 5,000 UNIT/ML VIAL SQ SCH ×3 (05:10→20:29)
--- NOTE | 2018-04-01 07:51 | Orthopedics Progress Note ---
Date of Encounter: 04/01/18 Time of Encounter: 07:51 Subjective Interval history: Patient was seen this morning no changes Afebrile vital signs stable. Operative extremity: Neurovascularly intact Dressing clean dry and intact Calves nontender Assessment and plan: Continue with postoperative care Continue antibiotics Objective Vital signs: Vital Signs Temp Pulse Resp BP Pulse Ox 04/01/18 07:12 98.2 F 81 16 113/70 90 04/01/18 04:11 98.4 F 77 15 124/74 95 03/31/18 18:59 98.1 F 79 16 97/64 90 03/31/18 14:27 98.2 F 76 14 102/68 92 03/31/18 10:18 98.1 F 76 14 139/72 93 Intake and Output 03/31/18 03/31/18 04/01/18 15:59 23:59 07:59 Intake Total 340 / 340 830 / 830 100 / 100 Output Total 200 / 200 0 / 0 Balance 140 / 140 830 / 830 100 / 100 Intake: IV Fluids 100 / 100 350 / 350 Zosyn 3.375 GM In 0.9 % Sodium 100 / 100 100 / 100 Chloride (Mini-Bag +) 100 ML @ 25 mls/hr IVPB Q8HR [facility] Rx#: [id number] Vancocin 1,000 MG In 0.9 % 250 / 250 Sodium Chloride 250 ML @ 166.67 mls/hr IVPB Q12H [facility] Rx#: [id number] Oral 240 / 240 480 / 480 100 / 100 Output: Urine 0 / 0 0 / 0 Urine/Stool Mix 200 / 200 Other: Meal Breakfast Dinner Percent of Meal Consumed 25% 75% Stool Size Large Copious Stool Consistency loose soft Stool Color Brown Brown # Voids 1 1 # Urine Diapers 1 # Bowel Movements 1 0 Weight 75.9 kg Patient Weight 04/01/18 23:59 Weight 75.9 kg - Labs CBC & BMP: 03/30/18 04:31 03/30/18 04:31 Labs: Abnormal lab results RBC 3.65 M/mcL (3.82-4.97) L 03/30/18 04:31 Hgb 10.4 g/dL (11.5-15.4) L 03/30/18 04:31 Hct 33.3 % (35.3-44.9) L 03/30/18 04:31 MCHC 31.2 g/dL (31.6-35.5) L 03/30/18 04:31 ESR 22 mm/hr (0-15) H 03/30/18 04:31 PT 15.1 Seconds (9.4-12.1) H 03/26/18 13:04 Creatinine 0.51 mg/dL (0.60-1.20) L 03/30/18 04:31 POC Glucose 67 mg/dL (70-99) L 03/27/18 17:24 Calcium 8.1 mg/dL (8.6-10.3) L 03/30/18 04:31 C-Reactive Protein 143 mg/L (Less than 10) H 03/30/18 04:31 Serum Total Protein 5.9 g/dL (6.4-8.9) L 03/26/18 13:04 Albumin 2.9 g/dL (3.5-5.7) L 03/26/18 13:04 Albumin/Globulin Ratio 1.0 (1.1-2.2) L 03/26/18 13:04 Vancomycin Trough 26 mcg/mL (5-10) H 04/01/18 05:16 Consult Discharge Plan - Plan Referrals: Bekah Ames CNP [Primary Care Provider] - Christina Yee CNP [Advanced Practice Nurse] - 04/05/18 8:40 am
[2018-04-01] MEDS: Diclofenac Sodium 75 MG TABLET PO SCH ×2 (09:35→14:52)
[2018-04-01] MEDS: Cholecalciferol (D-3) 1,000 UNIT TABLET PO SCH (09:35)
[2018-04-01] MEDS: amLODIPine 5 MG TABLET PO SCH (09:35)
[2018-04-01] MEDS: Anastrozole 1 MG TABLET PO SCH (09:37)
--- NOTE | 2018-04-01 13:17 | Internal Med Progress Note ---
Hospitalist Progress Note - Encounter Date of Encounter: 04/01/18 Time of Encounter: 08:23 - Subjective Interval History: Patient seen and examined this morning. s/p I/D POD5. Lt wrist pain better controlled. Mild nausea and 2 loose stools. No fever, chills, N/V/D. - Exam Vitals: Temp Pulse Resp BP Pulse Ox 98.3 F 77 16 108/68 90 04/01/18 10:03 04/01/18 10:03 04/01/18 10:03 04/01/18 10:03 04/01/18 10:03 Exam: General: Patient is alert, oriented, no acute distress, Respiratory: CTAB, no wheezing, crackles, or rhonchi. Cardiovascular: RRR. s1 and s2 No clicks, rubs, gallops, or murmors. Abdomen: Abdomen is soft, nondistended. no tenderness. Musculoskeletal: Decreased ROM in Lt wrist due to pain and swelling. improving. Dressing in place on Lt wrist. Neuro: Alert and oriented x3. Sensation light touch intact. Cranial nerves 2- 12 is intact. Psych: Patient's affect is normal. - Assessment and Plan (1) Cellulitis Current Visit: No Status: Acute (2) Mood disorder Current Visit: No Status: Acute (3) HTN (hypertension) Current Visit: No Status: Chronic (4) DVT prophylaxis Current Visit: No Status: Acute - Summary of Assessment and Plan Summary of Assessment and Plan: Cellululitis, abscess, ?OM - Left wrist cellulitis/abscess status post I&D on last admission in 03/15/2018 - MRI shows abscess, wrist effusion mod, cannot rule out septic joint, tenosynoviits 2nd, 4th, early osteomyelitis vs reactive osteitis - s/p POD5 of I/D, irrigation, debridement of the left dorsal hand and wrist - 2 sets cultures sent for aerobic, anaerobic, acid-fast, and fungal cultures. No growth on prelim, however was on antibiotics at the time. Blood culture 03/26/18 NGTD. - c/w Vanc. Will switch to zosyn to Levaquin. - c/w [place] 5-325 q6h prn, roxicodone 10 q6hr pnr. Currenlty pain well controlled. - To continue to monitor inpatient over weekend per Ortho. - c/w post operative care. Plan for DC tomorrow if cleared by Ortho HTN - continue home amlodipine. Well controlled Mood disorder - continue home buspirone, sertraline DVT prophylaxis - heparin sc. -Plan to go home on discharge with IV antibiotics to continue till 04/09/2018. - Time Spent with Patient Total time spent is greater than 50% in coordination of care (as documented) at patient's floor/unit and/or counseling patient: Internal Medicine: Result - Labs CBC & Chem 7: 03/30/18 04:31 03/30/18 04:31 - ABG Interpretation ABG results: PT/INR, D-dimer PT 15.1 Seconds (9.4-12.1) H 03/26/18 13:04 Consult Discharge Plan - Plan Referrals: Bekah Ames CNP [Primary Care Provider] - Christina Yee CNP [Advanced Practice Nurse] - 04/05/18 8:40 am (1) Cellulitis Qualifiers: Site of cellulitis: extremity Site of cellulitis of extremity: upper extrem ity Laterality: left Qualified Code(s): L03.114 - Cellulitis of left upper limb (3) HTN (hypertension) Qualifiers: Hypertension type: essential hypertension Qualified Code(s): I10 - Essential (primary) hypertension
[2018-04-01] MEDS ORDERED: Levofloxacin 750 MG/150 ML 750 MG/150 ML BAG IVPB SCH (14:00)
[2018-04-01] MEDS ORDERED: *HR* Promethazine 25 MG/ML VIAL ONE (16:02)
[2018-04-01] MEDS: *HR* Promethazine 25 MG/ML VIAL IVP PRN (16:19)
[2018-04-01 20:14] LABS: Basophils % 0.1 %; Eosinophils # 0.1 K/mcL (0.0-0.6); Eosinophils % 1.2 %; Hematocrit 33.7 % (35.3-44.9); Hemoglobin 10.5 g/dL (11.5-15.4); Immature Granulocytes % 0.4 % (0-4); Lymphocytes # 0.5 K/mcL (0.6-4.6); Lymphocytes % 6.9 %; Mean Corpuscular HGB Conc 31.2 g/dL (31.6-35.5); Mean Corpuscular Hemoglobin 28.6 pg (28.0-33.3); Mean Corpuscular Volume 91.8 fL (83.0-100.0); Mean Platelet Volume 11.2 fL (9.4-12.4); Monocytes # 0.4 K/mcL (0.0-1.3); Monocytes % 4.6 %; Neutrophils # 6.7 K/mcL (1.6-8.9); Platelet Count 166 K/mcL (140-400); Red Blood Count 3.67 M/mcL (3.82-4.97); Red Cell Distribution Width 14.2 % (11.5-14.5); Segmented Neutrophils % 86.8 %
[2018-04-01] MEDS: *HR* OxyCODONE Immed Rel 5 MG TABLET PO PRN (20:27)
[2018-04-01] MEDS: Latanoprost 2.5 ML BOTTLE BOTH EYES SCH (21:59)
[2018-04-02] MEDS: *HR* OxyCODONE Immed Rel 5 MG TABLET PO PRN ×2 (06:28→20:45)
[2018-04-02] MEDS: *HR* Heparin 5,000 UNIT/ML VIAL SQ SCH ×3 (06:30→20:45)
--- NOTE | 2018-04-02 07:17 | Orthopedics Progress Note ---
Date of Encounter: 04/02/18 Time of Encounter: 07:12 - Assessment and Plan (1) Cellulitis Current Visit: No Status: Acute Qualifiers: Site of cellulitis: extremity Site of cellulitis of extremity: upper extremity Laterality: left Qualified Code(s): L03.114 - Cellulitis of left upper limb Subjective Interval history: S: Pain is improved to the left wrist and hand Nausea over the weekend O: Afebrile on the vital signs are stable Incision is healing well with healthy-appearing granulation tissue at the wound bed Minimal serosanguineous drainage. No purulence. Improvement in the erythema and swelling Pain with motion of the wrist and digits She can grossly flex and extend the digits with limitation due to pain The fingertips are all grossly sensate and well-perfused, and the radial artery pulse is 2+. A: Post repeat I and D of the left wrist P: Despite the elevated CRP she has improved clinically over the weekend. No fluctuance or concern for further abscess Continue IV antibiotics per primary team. Switched to levaquin Local wound care with twice daily warm, soapy soaks Keep wound covered Elevation of the left upper extremity Digital motion exercises under the direction of therapy Objective Vital signs: Vital Signs Temp Pulse Resp BP Pulse Ox 04/02/18 05:00 97.8 F 76 16 121/72 96 04/01/18 19:38 97.8 F 65 16 102/61 97 04/01/18 14:03 98.3 F 87 16 113/68 98 04/01/18 10:03 98.3 F 77 16 108/68 90 Intake and Output 04/01/18 04/01/18 04/02/18 15:59 23:59 07:59 Intake Total 220 / 220 120 / 120 0 / 0 Output Total 0 / 0 0 / 0 0 / 0 Balance 220 / 220 120 / 120 0 / 0 Intake: IV Fluids 100 / 100 Zosyn 3.375 GM In 0.9 % Sodium 100 / 100 Chloride (Mini-Bag +) 100 ML @ 25 mls/hr IVPB Q8HR [facility] Rx#: [id number] Oral 120 / 120 120 / 120 0 / 0 Output: Urine 0 / 0 0 / 0 0 / 0 Other: Meal Lunch KEEPING TRAY Percent of Meal Consumed 0% Stool Size Small Stool Consistency soft Stool Color Brown # Voids 1 # Bowel Movements 1 0 0 Weight 76.1 kg Patient Weight 04/02/18 23:59 Weight 76.1 kg - Labs CBC & BMP: 04/01/18 19:56 03/30/18 04:31 Labs: Abnormal lab results RBC 3.67 M/mcL (3.82-4.97) L 04/01/18 19:56 Hgb 10.5 g/dL (11.5-15.4) L 04/01/18 19:56 Hct 33.7 % (35.3-44.9) L 04/01/18 19:56 MCHC 31.2 g/dL (31.6-35.5) L 04/01/18 19:56 Lymphocytes # 0.5 K/mcL (0.6-4.6) L 04/01/18 19:56 ESR 33 mm/hr (0-15) H 04/01/18 19:56 PT 15.1 Seconds (9.4-12.1) H 03/26/18 13:04 Creatinine 0.51 mg/dL (0.60-1.20) L 03/30/18 04:31 POC Glucose 67 mg/dL (70-99) L 03/27/18 17:24 Calcium 8.1 mg/dL (8.6-10.3) L 03/30/18 04:31 C-Reactive Protein 184 mg/L (Less than 10) H 04/01/18 19:56 Serum Total Protein 5.9 g/dL (6.4-8.9) L 03/26/18 13:04 Albumin 2.9 g/dL (3.5-5.7) L 03/26/18 13:04 Albumin/Globulin Ratio 1.0 (1.1-2.2) L 03/26/18 13:04 Vancomycin Trough 26 mcg/mL (5-10) H 04/01/18 05:16 Consult Discharge Plan - Plan Referrals: Bekah Ames CNP [Primary Care Provider] - Christina Yee CNP [Advanced Practice Nurse] - 04/05/18 8:40 am
[2018-04-02] MEDS: amLODIPine 5 MG TABLET PO SCH (08:33)
[2018-04-02] MEDS: Anastrozole 1 MG TABLET PO SCH (08:33)
[2018-04-02] MEDS: Cholecalciferol (D-3) 1,000 UNIT TABLET PO SCH (08:33)
[2018-04-02] MEDS: Diclofenac Sodium 75 MG TABLET PO SCH (08:34)
[2018-04-02 09:32] LABS: Basophils % 0.3 %; Eosinophils # 0.2 K/mcL (0.0-0.6); Eosinophils % 1.8 %; Hematocrit 33.4 % (35.3-44.9); Hemoglobin 10.3 g/dL (11.5-15.4); Immature Granulocytes % 0.4 % (0-4); Lymphocytes # 0.6 K/mcL (0.6-4.6); Mean Corpuscular HGB Conc 30.8 g/dL (31.6-35.5); Mean Corpuscular Hemoglobin 28.4 pg (28.0-33.3); Mean Platelet Volume 10.8 fL (9.4-12.4); Monocytes # 0.6 K/mcL (0.0-1.3); Monocytes % 5.5 %; Neutrophils # 8.8 K/mcL (1.6-8.9); Platelet Count 206 K/mcL (140-400); Red Blood Count 3.63 M/mcL (3.82-4.97); Red Cell Distribution Width 14.4 % (11.5-14.5)
[2018-04-02 09:51] LABS: Potassium 4.4 mEq/L (3.5-5.1)
--- NOTE | 2018-04-02 10:45 | Infectious Disease Progress No ---
Date of Encounter: 04/02/18 Time of Encounter: 10:41 - Assessment and Plan (1) Abscess of left upper extremity Current Visit: Yes Status: Acute Location: Left wrist. Causative organism: unclear. Status post I & D for cellulitis and early abscess 03/15/18. Intra-op cultures were negative (the patient had been on IV antibiotics for 3 days prior). Started on broad-spectrum antibiotics including Vanc and Zosyn. MRI cannot rule out septic arthritis or osteomyelitis. ESR 35, CRP 203. Orthopedics consulted and following. Status post I & D and I & D of the dorsal hand and wrist 03/27/[address] Cee. Operative note reviewed. ABscess noted intra-op. No septic arthritis or OM noted. Cultures (aerobic, anaerobic, and fungal) are no growth. AFB negative. Zosyn switched to Levaquin by the primary team. Continue Levaquin, but will need to dose-adjust for lower CrCl in light of new PAM. Continue Vancomycin IV. Pharmacy to dose. Goal trough ~15. 04/01/18 vanc trough 26. Discussed with pharmacy. Duration of treatment depends on the clinical picture. Will likely plan to treat with IV antibiotics for two weeks post-op. Recommend Vancomycin and Levaquin if cultures remain negative. Plan to treat through 04/09/18. immigration services officer to assist with discharge planning. The patient will likely require rehab placement on discharge to complete course of treatment as it does not sound like she has family at home that are able to help. Monitor renal function and for drug toxicity and dose-adjust antibiotics. PICC line placed. Will need weekly CBC, BUN/Cr, ESR, CRP, and Vanc trough. Will need weekly PICC care per protocol. Follow up with ID 04/05/18 at 0840. (2) Cellulitis Current Visit: No Status: Acute Location: Left wrist. Causative organism unclear. MRI results noted. Orthopedics consulted. Continue antibiotics as above for now. Qualifiers: Site of cellulitis: extremity Site of cellulitis of extremity: upper extremity Laterality: left Qualified Code(s): L03.114 - Cellulitis of left upper limb (3) Transient synovitis, unspecified wrist Current Visit: Yes Status: Acute Qualifiers: Laterality: right Qualified Code(s): M67.331 - Transient synovitis, right wrist (4) HTN (hypertension) Current Visit: No Status: Chronic Qualifiers: Hypertension type: essential hypertension Qualified Code(s): I10 - Essential (primary) hypertension (5) Acute kidney injury Current Visit: Yes Status: Acute Serum creatinine up to 2.23 this morning. Likely secondary to Vanc toxicity. Vanc dose adjusted. Continue to trend. Dose-adjust medications. Strict I's and O's. May need to consider nephrology consult. - Subjective Interval history: Patient seen and examined. No acute events noted overnight. Patient resting quietly in bed. Status post irrigation and debridement of the left hand and wrist 03/27/[address] Cee. States she does have some mild pain in the left wrist that is better today. ROM improved. Denies any fevers or chills or rigors. Denies chest pain or cough, but reports some shortness of breath overnight and is currently on O2 via nasal cannula. Denies any vomiting or diarrhea. States she had a BM this morning. Reports nausea and appetite are improved, but she didn't eat much breakfast. Denies any abdominal pain or urinary complaints. She denies any oral thrush and no skin lesions. Infect Dis PN-Objective Data - Labs CBC & Chem 7: 04/02/18 09:04 04/02/18 09:04 Labs: Laboratory Results - last 24 hr 04/01/18 04/01/18 04/01/18 19:56 19:56 19:56 WBC 7.7 D RBC 3.67 L Hgb 10.5 L Hct 33.7 L MCV 91.8 MCH 28.6 MCHC 31.2 L RDW 14.2 Plt Count 166 MPV 11.2 Immature Gran % 0.4 Seg Neutrophils % 86.8 Lymphocytes % 6.9 Monocytes % 4.6 Eosinophils % 1.2 Basophils % 0.1 Neutrophils # 6.7 Lymphocytes # 0.5 L Monocytes # 0.4 Eosinophils # 0.1 Basophils # 0.0 ESR 33 H Sodium Potassium Chloride Carbon Dioxide BUN Creatinine Est GFR ( Amer) Est GFR (Non-Af Amer) BUN/Creatinine Ratio Glucose Calculated Osmolality Calcium C-Reactive Protein 184 H Random Vancomycin 04/02/18 04/02/18 04/02/18 08:01 09:04 09:04 WBC 10.2 RBC 3.63 L Hgb 10.3 L Hct 33.4 L MCV 92.0 MCH 28.4 MCHC 30.8 L RDW 14.4 Plt Count 206 MPV 10.8 Immature Gran % 0.4 Seg Neutrophils % 86.0 Lymphocytes % 6.0 Monocytes % 5.5 Eosinophils % 1.8 Basophils % 0.3 Neutrophils # 8.8 Lymphocytes # 0.6 Monocytes # 0.6 Eosinophils # 0.2 Basophils # 0.0 ESR Sodium 137 Potassium 4.4 Chloride 103 Carbon Dioxide 28 BUN 17 Creatinine 2.23 H Est GFR ( Amer) 25 L Est GFR (Non-Af Amer) 21 L BUN/Creatinine Ratio 8 Glucose 118 H Calculated Osmolality 287 Calcium 9.0 C-Reactive Protein Random Vancomycin 20 Cultures: Cultures 03/27/18 18:14 Anaerobic Culture - Final Left Wrist - Abscess No anaerobes were recovered. 03/26/18 13:04 Blood Culture - Final Peripheral Venipuncture No growth. Final report. 03/27/18 18:14 Wound Culture - Final Left Wrist - Abscess No growth. 03/27/18 18:14 Acid Fast Stain - Final Left Wrist - Abscess Exam - Constitutional Vitals: Temp Pulse Resp BP Pulse Ox 97.6 F 78 15 126/69 96 04/02/18 07:12 04/02/18 07:12 04/02/18 07:12 04/02/18 07:12 04/02/18 05:00 General appearance: average body habitus, cooperative, no acute distress - Head Head exam: Present: atraumatic, normal inspection, normocephalic - Eye Eye exam: Present: EOMI, normal appearance, PERRL Pupils: Present: normal accommodation - ENT ENT exam: Present: mucous membranes moist - Neck Neck exam: Present: normal inspection - Respiratory Respiratory exam: Present: CTAB. Absent: rales, respiratory distress, rhonchi, wheezes - Cardiovascular Cardiovascular exam: Present: RRR, +S1, +S2 - GI/Abdominal GI/Abdominal exam: Present: normal bowel sounds, soft. Absent: distended, tenderness - Extremities Exam Extremities exam: Present: tenderness (left wrist). Absent: full ROM (left hand ROM improved.), normal inspection (Left hand/wrist dressing C/D/I. ), pedal edema - Neurological Exam Neurological exam: Present: alert, oriented X3, no focal deficits - Psychiatric Psychiatric exam: Present: normal affect, normal mood - Skin Skin exam: Present: dry, intact, normal color, warm Consult Discharge Plan - Plan Referrals: Bekah Ames CNP [Primary Care Provider] - Christina Yee CNP [Advanced Practice Nurse] - 04/05/18 8:40 am
[2018-04-02] MEDS ORDERED: 0.9 % Sodium Chloride 500 ML IVC ONE (11:04)
--- NOTE | 2018-04-02 11:08 | Internal Med Progress Note ---
Hospitalist Progress Note - Encounter Date of Encounter: 04/02/18 Time of Encounter: 11:07 - Subjective Interval History: Patient seen and examined this morning. s/p I/D POD6. Lt wrist pain better controlled. few episodes of vomiting yesterday. Still nauseaus. No fever, chills - Exam Vitals: Temp Pulse Resp BP Pulse Ox 97.6 F 78 15 126/69 96 04/02/18 07:12 04/02/18 07:12 04/02/18 07:12 04/02/18 07:12 04/02/18 05:00 Exam: General: Patient is alert, oriented, no acute distress, Respiratory: CTAB, no wheezing, crackles, or rhonchi. Cardiovascular: RRR. s1 and s2 No clicks, rubs, gallops, or murmors. Abdomen: Abdomen is soft, nondistended. no tenderness. Musculoskeletal: Decreased ROM in Lt wrist due to pain and swelling. improving. Dressing in place on Lt wrist. Neuro: Alert and oriented x3. Sensation light touch intact. Cranial nerves 2- 12 is intact. Psych: Patient's affect is normal. - Assessment and Plan (1) Cellulitis Current Visit: No Status: Acute (2) Mood disorder Current Visit: No Status: Acute (3) HTN (hypertension) Current Visit: No Status: Chronic (4) DVT prophylaxis Current Visit: No Status: Acute - Summary of Assessment and Plan Summary of Assessment and Plan: Wrist abscess - Left wrist cellulitis/abscess status post I&D on last admission in 03/15/2018 - MRI shows abscess, wrist effusion mod, cannot rule out septic joint, tenosynoviits 2nd, 4th, early osteomyelitis vs reactive osteitis - s/p POD5 of I/D, irrigation, debridement of the left dorsal hand and wrist. Has wrist abscess - 2 sets cultures sent for aerobic, anaerobic, acid-fast, and fungal cultures. No growth on prelim, however was on antibiotics at the time. Blood culture 03/26/18 NGTD. - c/w Vanc and Levaquin. Now with PAM. Dose to be adjusted by pharmacy. - c/w [place] 5-325 q6h prn, roxicodone 10 q6hr pnr. Currenlty pain well controlled. PAM - Plate Developer 0.51 on 03/30 now 2.23 - Had few episodes of vomiting yesterday. No diarrhea. - Vanc trough high on 04/01 - Possible related to abx vs prerenal - Obtain UA, urine creat, urine sodium. obtain bladder scan for pvr. - give 500 cc NS bolus. Start 100 cc/hr LR - strict I/O - avoid nephrotoxin. - Will consult renal. HTN - continue home amlodipine. Well controlled Mood disorder - continue home buspirone, sertraline DVT prophylaxis - heparin sc. -Plan to go home on discharge with IV antibiotics to continue till 04/09/2018. Had IV access. - Time Spent with Patient Total time spent is greater than 50% in coordination of care (as documented) at patient's floor/unit and/or counseling patient: Internal Medicine: Result - Labs CBC & Chem 7: 04/02/18 09:04 04/02/18 09:04 Labs: Short CBC 04/01/18 04/02/18 Range/Units 19:56 09:04 WBC 7.7 D 10.2 (4.3-11.1) K/mcL Hgb 10.5 L 10.3 L (11.5-15.4) g/dL Hct 33.7 L 33.4 L (35.3-44.9) % Plt Count 166 206 (140-400) K/mcL Neutrophils # 6.7 8.8 (1.6-8.9) K/mcL BMP 04/02/18 09:04 Sodium 137 Potassium 4.4 Chloride 103 Carbon Dioxide 28 BUN 17 Creatinine 2.23 H Glucose 118 H Calcium 9.0 - ABG Interpretation ABG results: PT/INR, D-dimer PT 15.1 Seconds (9.4-12.1) H 03/26/18 13:04 Consult Discharge Plan - Plan Referrals: Bekah Ames CNP [Primary Care Provider] - Christina Yee CNP [Advanced Practice Nurse] - 04/05/18 8:40 am (1) Cellulitis Qualifiers: Site of cellulitis: extremity Site of cellulitis of extremity: upper extremity Laterality: left Qualified Code(s): L03.114 - Cellulitis of left upper limb (3) HTN (hypertension) Qualifiers: Hypertension type: essential hypertension Qualified Code(s): I10 - Essential (primary) hypertension
[2018-04-02] MEDS: Ringers Solution, Lactated 1,000 ML IVC SCH (12:58)
[2018-04-02] MEDS: *HR* HYDROcodone/Acet 5/325 mg TABLET PO PRN (13:40)
--- NOTE | 2018-04-02 15:38 | Event Note ---
Date of Encounter: 04/02/18 Time of Encounter: 15:36 Nephrology Chart Review Consulted for PAM late this afternoon. I reviewed her chart, and I agree with starting IVF but will also recommend avoiding NSAIDs, which I've already stopped. Recommend adding U eos and retroperitoneal U/S in addition to the urine studies. Vanco levels were elevated. Full consult to follow tomorrow. Thank you.
[2018-04-02] MEDS: Latanoprost 2.5 ML BOTTLE BOTH EYES SCH (21:39)
[2018-04-03] MEDS: Ringers Solution, Lactated 1,000 ML IVC SCH ×2 (01:07→11:29)
[2018-04-03] MEDS: *HR* HYDROcodone/Acet 5/325 mg TABLET PO PRN (01:32)
[2018-04-03] MEDS: Ondansetron 4 MG/2 ML VIAL IVP PRN ×2 (01:32→18:16)
[2018-04-03] MEDS: *HR* Heparin 5,000 UNIT/ML VIAL SQ SCH ×3 (05:14→21:17)
[2018-04-03 05:37] LABS: Basophils % 0.3 %; Eosinophils # 0.1 K/mcL (0.0-0.6); Eosinophils % 1.7 %; Hematocrit 29.1 % (35.3-44.9); Immature Granulocytes % 0.3 % (0-4); Lymphocytes # 0.4 K/mcL (0.6-4.6); Lymphocytes % 6.6 %; Mean Corpuscular HGB Conc 30.9 g/dL (31.6-35.5); Mean Corpuscular Hemoglobin 28.6 pg (28.0-33.3); Mean Corpuscular Volume 92.4 fL (83.0-100.0); Monocytes # 0.6 K/mcL (0.0-1.3); Monocytes % 8.9 %; Neutrophils # 5.4 K/mcL (1.6-8.9); Platelet Count 168 K/mcL (140-400); Red Blood Count 3.15 M/mcL (3.82-4.97); Red Cell Distribution Width 14.6 % (11.5-14.5); Segmented Neutrophils % 82.2 %
[2018-04-03 05:54] LABS: Calcium 8.9 mg/dL (8.6-10.3); Potassium 4.3 mEq/L (3.5-5.1)
--- NOTE | 2018-04-03 06:57 | Orthopedics Progress Note ---
Date of Encounter: 04/03/18 Time of Encounter: 06:55 - Assessment and Plan (1) Cellulitis Current Visit: No Status: Acute Qualifiers: Site of cellulitis: extremity Site of cellulitis of extremity: upper extremity Laterality: left Qualified Code(s): L03.114 - Cellulitis of left upper limb Subjective Interval history: S: Pain continues to improve to the left wrist and hand O: Afebrile on the vital signs are stable Incision is healing well with healthy-appearing granulation tissue at the wound bed Minimal serosanguineous drainage. No purulence. Improvement in the erythema and swelling Pain with motion of the wrist and digits She can grossly flex and extend the digits with limitation due to pain The fingertips are all grossly sensate and well-perfused, and the radial artery pulse is 2+. A: Post repeat I and D of the left wrist P: No fluctuance or concern for further abscess No plans for further operative I and D at this time. Continue IV antibiotics per primary team. Local wound care with twice daily warm, soapy soaks Keep wound covered Elevation of the left upper extremity Digital motion exercises under the direction of therapy Objective Vital signs: Vital Signs Temp Pulse Resp BP Pulse Ox 04/03/18 06:34 98.0 F 78 16 116/71 93 04/03/18 02:42 98.4 F 78 16 130/78 95 04/02/18 23:17 98.3 F 81 16 121/73 92 04/02/18 14:21 98 F 69 16 111/73 99 04/02/18 11:06 97.7 F 77 15 102/64 94 04/02/18 07:12 97.6 F 78 15 126/69 Intake and Output 04/02/18 04/02/18 04/03/18 15:59 23:59 07:59 Intake Total 510 / 510 1000 / 1000 Output Total 300 / 300 0 / 0 Balance 210 / 210 1000 / 1000 Intake: IV Fluids 150 / 150 1000 / 1000 Lactated Ringers 1,000 ML @ 100 1000 / 1000 mls/hr IVC .Q10H [facility] Rx#: [id number] Levaquin Premix 750mg/150 mL 150 / 150 750 mg In 150 ml @ 100 mls/hr IVPB Q24H [facility] Rx#:[id number] Oral 360 / 360 Output: Urine 300 / 300 0 / 0 Other: Meal Lunch Percent of Meal Consumed 10% Stool Size Moderate Stool Consistency soft Stool Color Arvind Colored # Bowel Movements 0 Weight 81.7 kg Patient Weight 04/03/18 23:59 Weight 81.7 kg - Labs CBC & BMP: 04/03/18 05:15 04/03/18 05:15 Labs: Abnormal lab results RBC 3.15 M/mcL (3.82-4.97) L 04/03/18 05:15 Hgb 9.0 g/dL (11.5-15.4) L 04/03/18 05:15 Hct 29.1 % (35.3-44.9) L 04/03/18 05:15 MCHC 30.9 g/dL (31.6-35.5) L 04/03/18 05:15 RDW 14.6 % (11.5-14.5) H 04/03/18 05:15 Lymphocytes # 0.4 K/mcL (0.6-4.6) L 04/03/18 05:15 ESR 33 mm/hr (0-15) H 04/01/18 19:56 PT 15.1 Seconds (9.4-12.1) H 03/26/18 13:04 Creatinine 2.10 mg/dL (0.60-1.20) H 04/03/18 05:15 Est GFR ( Amer) 27 (> 60) L 04/03/18 05:15 Est GFR (Non-Af Amer) 22 (> 60) L 04/03/18 05:15 POC Glucose 67 mg/dL (70-99) L 03/27/18 17:24 C-Reactive Protein 184 mg/L (Less than 10) H 04/01/18 19:56 Serum Total Protein 5.9 g/dL (6.4-8.9) L 03/26/18 13:04 Albumin 2.9 g/dL (3.5-5.7) L 03/26/18 13:04 Albumin/Globulin Ratio 1.0 (1.1-2.2) L 03/26/18 13:04 Vancomycin Trough 26 mcg/mL (5-10) H 04/01/18 05:16 Consult Discharge Plan - Plan Referrals: Bekah Ames [employer] [Primary Care Provider] - Christina Yee CNP [Advanced Practice Nurse] - 04/05/18 8:40 am
[2018-04-03] MEDS: *HR* Promethazine 25 MG/ML VIAL IVP PRN ×2 (08:10→20:59)
[2018-04-03] MEDS: Anastrozole 1 MG TABLET PO SCH (08:13)
[2018-04-03] MEDS: amLODIPine 5 MG TABLET PO SCH (08:14)
[2018-04-03] MEDS: Cholecalciferol (D-3) 1,000 UNIT TABLET PO SCH (08:15)
--- NOTE | 2018-04-03 08:26 | Nephrology Consult Note ---
Addendum entered and electronically signed by He Lantigua DO 04/09/18 13:02: I have personally performed a face to face evaluation on this patient. I have reviewed and agree with the care plan. History and Exam by me shows: 87 y/o female with PAM in the setting of Vanco, NSAIDs, infection/abscess. No indications for [employer]CH MECH[employer]IC, but I recommend following a renal protective/conservative strategy. Thank you. Original Note: Date of Encounter: 04/03/18 Time of Encounter: 08:26 Assessment and Plan (1) Acute kidney injury Current Visit: Yes Status: Acute Suspect PAM from multiple factors including Vanco, abscess/infection, NSAIDs Continue to hold NSAIDS Contine IV fluids UA, urine creatinine, urine sodium, urine eosinophils, and renal ultrasound has already been ordered Will add CPK and serum uric acid level Pharmacy to dose Vanco Avoid nephrotoxins if possible (2) Abscess of left upper extremity Current Visit: Yes Status: Acute per primary/ortho teams Pharmacy to dose Vanco (3) Cellulitis Current Visit: No Status: Acute per primary/ortho teams Pharmacy to dose Vancomycin Qualifiers: Site of cellulitis: extremity Site of cellulitis of extremity: upper extremity Laterality: left Qualified Code(s): L03.114 - Cellulitis of left upper limb History of Present Illness - Reason for Consult Consult date: 04/03/18 - Chief Complaint wrist abscess, PAM - History of Present Illness Ms. Burger is a 87 year old female with history of breast cancer, hypertension and mood disorder who was recently admitted for non-healing left hand cellulitis status post I&D in the OR. She is currently on Vanco and had a trough high on 04/01; random vanco level is now 13. In recent days Scr has increased to 2.10 and GFR dropped to 22; previously patient's kidney labs were WNL. UA, urine creatinine, urine sodium and bladder scan has already been ordered; vanco is no to be dosed by pharmacy, NSAIDS have been stopped, and IVF started. Nephrology has been consulted to manage her PAM. Past Med Surg Social Fam HX - Past Medical History Medical history: arthritis, hyperlipidemia, hypertension Psychiatric history: no psych history - Past Surgical History Additional surgical history: Bilat knee replacement, appendectomy, R partial masectomy - Social History Smoking Status: Never smoker Smokeless Tobacco Status: No Alcohol use: none Drug use: none - Family History Mother Family Member Ethnicity: Non- Living Status: Still Living Hx Family Cardiac Disorders: Yes (angina) Hx Family Cancer: Yes (breast) Father Living Status: Hx Family Cardiac Disorders: Yes Hx Family Cancer: Yes (prostate) Medications and Allergies Anastrozole [Arimidex] 1 mg PO DAILY 10/22/15 [History] Diclofenac Sodium [Voltaren] 75 mg PO BID 10/22/15 [History] Sertraline [Zoloft] 150 mg PO DAILY 10/22/15 [History] Simvastatin [Zocor] 20 mg PO HS 10/22/15 [History] amLODIPine [Norvasc] 5 mg PO DAILY 10/22/15 [History] Buspirone HCl [Buspar] 7.5 mg PO BID 03/04/18 [History] Calcium Carbonate/Vitamin D3 [Calcium 600 + Vit D Tablet] 1 each PO BID 03/04/18 [History] Cholecalciferol (Vitamin D3) [Vitamin D3] 1,000 unit PO DAILY 03/04/18 [History] Donepezil HCl [Aricept] 5 mg PO HS 03/04/18 [History] Alendronate Sodium [Fosamax] 70 mg PO QWEEK 03/12/18 [History] HYDROcodone/Acet 7.5/325 mg [[place] 7.5-325 mg] 1 tab PO BID 03/12/18 [History] Latanoprost [Xalatan] 1 drop BOTH EYES HS 03/12/18 [History] Allergy/AdvReac Type Severity Reaction Status Date / Time No Known Allergies Allergy Verified 03/04/18 12:09 Review of Systems All Systems: reviewed and no additional remarkable complaints except as stated Constitutional: no chills, no fever(s) Respiratory: no cough, no dyspnea Gastrointestinal: loose stools Musculoskeletal: joint swelling Musculoskeletal: left: wrist pain (cellulitis), wrist swelling Neurological: no behavioral changes Exam - Vital Signs Vital signs: Initial Vital Signs Pulse Ox 96 03/26/18 11:31 Vital Signs - Last 8 Hours Temp Pulse Resp BP Pulse Ox 04/03/18 06:34 98.0 F 78 16 116/71 93 04/03/18 02:42 98.4 F 78 16 130/78 95 Intake and Output 04/02/18 04/03/18 04/03/18 23:59 07:59 15:59 Intake Total 1000 / 1000 Output Total 400 / 400 Balance 600 / 600 Intake: IV Fluids 1000 / 1000 Lactated Ringers 1,000 ML @ 100 1000 / 1000 mls/hr IVC .Q10H [facility] Rx#: [id number] Output: Urine 400 / 400 Other: # Voids 1 # Bowel Movements 0 Weight 81.7 kg Patient Weight 04/03/18 23:59 Weight 81.7 kg - General Appearance General appearance: well-developed, well-nourished EENT: ATNC, mucous membranes moist, hearing intact, vision intact Neck: supple Respiratory: clear Cardiology: no edema, normal S1, normal S2 Gastrointestinal: no tenderness, no guarding Integumentary: warm and dry Neurologic: alert and oriented x3 Results - Lab Results 04/03/18 05:15 04/03/18 05:15 Most recent lab results Calcium 8.9 mg/dL (8.6-10.3) 04/03/18 05:15 Consult Discharge Plan - Plan Referrals: Bekah Ames CNP [Primary Care Provider] - Christina Yee CNP [Advanced Practice Nurse] - 04/05/18 8:40 am
[2018-04-03] MEDS ORDERED: Vancomycin 500 MG in 0.9 % Sodium Chloride Mini Bag 100 ML IVPB ONE (09:00)
[2018-04-03 11:10] LABS: Uric Acid 4.1 mg/dL (2.3-7.6)
--- NOTE | 2018-04-03 11:25 | Infectious Disease Progress No ---
Date of Encounter: 04/03/18 Time of Encounter: 10:41 - Assessment and Plan (1) Abscess of left upper extremity Current Visit: Yes Status: Acute Location: Left wrist. Causative organism: unclear. Status post I & D for cellulitis and early abscess 03/15/18. Intra-op cultures were negative (the patient had been on IV antibiotics for 3 days prior). Started on broad-spectrum antibiotics including Vanc and Zosyn. MRI cannot rule out septic arthritis or osteomyelitis. ESR 35, CRP 203. Orthopedics consulted and following. Status post I & D and I & D of the dorsal hand and wrist 03/27/[address] Cee. Operative note reviewed. ABscess noted intra-op. No septic arthritis or OM noted. Cultures (aerobic, anaerobic, and fungal) are no growth. AFB negative. Zosyn switched to Levaquin by the primary team. Continue Levaquin, but will need to dose-adjust for lower CrCl in light of new PAM. Continue Vancomycin IV. Pharmacy to dose. Goal trough ~15. 04/01/18 vanc trough 26. Discussed with pharmacy. Random Vanc this morning 13. Duration of treatment depends on the clinical picture. Will likely plan to treat with IV antibiotics for two weeks post-op. Recommend Vancomycin and Levaquin if cultures remain negative. Plan to treat through 04/09/18. manager financial services to assist with discharge planning. The patient will likely require rehab placement on discharge to complete course of treatment as it does not sound like she has family at home that are able to help and she may benefit from PT/OT after discharge. Monitor renal function and for drug toxicity and dose-adjust antibiotics. PICC line placed. Will need weekly CBC, BUN/Cr, ESR, CRP, and Vanc trough. Will need weekly PICC care per protocol. Follow up with ID 04/05/18 at 0840. (2) Cellulitis Current Visit: No Status: Acute Location: Left wrist. Causative organism unclear. MRI results noted. Orthopedics consulted. Continue antibiotics as above for now. Qualifiers: Site of cellulitis: extremity Site of cellulitis of extremity: upper extremity Laterality: left Qualified Code(s): L03.114 - Cellulitis of left upper limb (3) Transient synovitis, unspecified wrist Current Visit: Yes Status: Acute Qualifiers: Laterality: right Qualified Code(s): M67.331 - Transient synovitis, right wrist (4) HTN (hypertension) Current Visit: No Status: Chronic Qualifiers: Hypertension type: essential hypertension Qualified Code(s): I10 - Essential (primary) hypertension (5) Acute kidney injury Current Visit: Yes Status: Acute Serum creatinine improved. Likely secondary to Vanc toxicity, NSAIDs, and infection. Vanc dose adjusted. Continue to trend. Dose-adjust medications. Strict I's and O's. Nephrology consulted and following. (6) Nausea Current Visit: Yes Status: Acute Likely secondary to antibiotics. Management per the primary team. - Subjective Interval history: Patient seen and examined. No acute events noted overnight. Patient resting quietly in bed. Status post irrigation and debridement of the left hand and wrist 03/27/[address] Cee. States she does have some mild pain in the left wrist that is better today. ROM improved and was able to work with PT this maan ng. Denies any fevers or chills or rigors. Denies chest pain or cough, but reports some shortness of breath when O2 was removed. Denies any vomiting or diarrhea. States she had a BM this morning. Reports nausea and appetite are improved, but she didn't eat much breakfast. Reports vomiting last night, none this morning. Denies any abdominal pain or urinary complaints. She denies any oral thrush and no skin lesions. Infect Dis PN-Objective Data - Labs CBC & Chem 7: 04/03/18 05:15 04/03/18 05:15 Labs: Laboratory Results - last 24 hr 04/03/18 04/03/18 04/03/18 01:34 05:15 05:15 WBC 6.5 RBC 3.15 L Hgb 9.0 L Hct 29.1 L MCV 92.4 MCH 28.6 MCHC 30.9 L RDW 14.6 H Plt Count 168 MPV 11.0 Immature Gran % 0.3 Seg Neutrophils % 82.2 Lymphocytes % 6.6 Monocytes % 8.9 Eosinophils % 1.7 Basophils % 0.3 Neutrophils # 5.4 Lymphocytes # 0.4 L Monocytes # 0.6 Eosinophils # 0.1 Basophils # 0.0 Sodium Potassium Chloride Carbon Dioxide BUN Creatinine Est GFR ( Amer) Est GFR (Non-Af Amer) BUN/Creatinine Ratio Glucose Calculated Osmolality Calcium Creatine Kinase Ur Eosinophil Smear 0 Random Vancomycin 13 04/03/18 04/03/18 05:15 08:37 WBC RBC Hgb Hct MCV MCH MCHC RDW Plt Count MPV Immature Gran % Seg Neutrophils % Lymphocytes % Monocytes % Eosinophils % Basophils % Neutrophils # Lymphocytes # Monocytes # Eosinophils # Basophils # Sodium 136 Potassium 4.3 Chloride 104 Carbon Dioxide 28 BUN 16 Creatinine 2.10 H Est GFR ( Amer) 27 L Est GFR (Non-Af Amer) 22 L BUN/Creatinine Ratio 8 Glucose 105 Calculated Osmolality 284 Calcium 8.9 Creatine Kinase 13 L Ur Eosinophil Smear Random Vancomycin Cultures: Cultures 03/27/18 18:14 Anaerobic Culture - Final Left Wrist - Abscess No anaerobes were recovered. 03/26/18 13:04 Blood Culture - Final Peripheral Venipuncture No growth. Final report. 03/27/18 18:14 Wound Culture - Final Left Wrist - Abscess No growth. 03/27/18 18:14 Acid Fast Stain - Final Left Wrist - Abscess Serology 04/03/18 Range/Units 01:34 Ur Eosinophil Smear 0 (None Seen) % - Impressions Impressions Retroperitoneum Ultrasound 04/02/18 19:30 IMPRESSION: Unremarkable renal ultrasonography. Right-sided pleural effusion noted. D/ / Dm Dozier / Dm Dozier Interpreting Provider: Dm Dozier Exam - Constitutional Vitals: Temp Pulse Resp BP Pulse Ox 97.4 F L 72 14 108/69 93 04/03/18 10:38 04/03/18 10:38 04/03/18 10:38 04/03/18 10:38 04/03/18 10:38 General appearance: average body habitus, cooperative, no acute distress - Head Head exam: Present: atraumatic, normal inspection, normocephalic - Eye Eye exam: Present: EOMI, normal appearance, PERRL Pupils: Present: normal accommodation - ENT ENT exam: Present: mucous membranes moist - Neck Neck exam: Present: normal inspection - Respiratory Respiratory exam: Present: CTAB. Absent: rales, respiratory distress, rhonchi, wheezes - Cardiovascular Cardiovascular exam: Present: RRR, +S1, +S2 - GI/Abdominal GI/Abdominal exam: Present: normal bowel sounds, soft. Absent: distended, tenderness - Extremities Exam Extremities exam: Present: joint swelling (left wrist), tenderness (left hand/wrist). Absent: normal inspection (LEft wrist/hand surgical site with sutures intact and mild periwound erythema. Tenderness noted on palpation, but no fluctuance. Small amount of serous drainage noted in the wound bed. ROM improved.), pedal edema - Neurological Exam Neurological exam: Present: alert, oriented X3, no focal deficits - Psychiatric Psychiatric exam: Present: normal affect, normal mood - Skin Skin exam: Present: dry, intact, normal color, warm Consult Discharge Plan - Plan Referrals: Bekah Ames CNP [Primary Care Provider] - Christina Yee CNP [Advanced Practice Nurse] - 04/05/18 8:40 am - Attending Attestation I examined this patient and my medical decision-making was reviewed with the Resident Physician. I agree with the documented findings, disposition and treatment plan as described except to the extent set forth below.
[2018-04-03 14:20] LABS: Bilirubin,Urine Negative (Negative); Blood,Urine Negative (Negative); Clarity,Urine Cloudy (Clear); Color,Urine Yellow (Yellow); Glucose,Urine (UA) Normal (Normal); Ketones,Urine Negative (Negative); Leukocyte Esterase,Urine Small (Negative); Nitrite,Urine Negative (Negative); Protein,Urine Trace mg/dL (Neg-Trace); Specific Gravity,Urine 1.013 (1.010-1.025); Urobilinogen,Urine Normal (Normal)
[2018-04-03 14:21] LABS: Bacteria,Urine None Seen per hpf (None-Few); Hyaline Casts,Urine None Seen per lpf (None-Few); Squamous Epithelial Cell,Urine Many per lpf (None-Few)
[2018-04-03] MEDS: Levofloxacin 500 MG/100 ML 500 MG/100 ML BAG IVPB SCH (14:22)
[2018-04-03] MEDS: *HR* OxyCODONE Immed Rel 5 MG TABLET PO PRN (18:17)
[2018-04-03] MEDS: Latanoprost 2.5 ML BOTTLE BOTH EYES SCH (22:30)
--- NOTE | 2018-04-03 22:49 | Internal Med Progress Note ---
Hospitalist Progress Note - Encounter Date of Encounter: 04/03/18 Time of Encounter: 19:00 - Subjective Interval History: SUBJECTIVE: The pain in the area of left wrist is mild. She feels good. Denies fever and chills. Denies abdominal pain, nausea and vomiting. She makes good amounts of urine. OBJECTIVE: Skin: Free of rash and discoloration. ENMT: Oral/pharyngeal mucosa is normal in appearance. Eyes: Sclera is white. There is no discharge from eyes. Respiratory: Normal breath sounds; no crackles or wheezes. CV: Heart is regular; no gallop or murmur. GI: Abdomen is soft and not tender. There is no palpable mass or visceromegaly. Neuro: There is no focal deficits. ADDITIONAL DATA: Hemoglobin is 9.0 (10.3 yesterday). WBC 6.5 thousand. Her creatinine is 2.10; 2.23 yesterday and 0.40 at admission. ASSESSMENT AND PLAN: Cellulitis of left wrist. See notes from orthopedics and infectious diseases. The patient is on IV vancomycin/IV Levaquin. Acute kidney injury. She had normal creatinine that the admission. Her today's creatinine is lower than yesterday's. Hypertension. Under control. To continue Norvasc. Hyperlipidemia. Continue Zocor. - Exam Vitals: Temp Pulse Resp BP Pulse Ox 97.6 F 78 16 128/72 99 04/03/18 15:57 04/03/18 15:57 04/03/18 15:57 04/03/18 15:57 04/03/18 19:21 Exam: xx - Assessment and Plan (1) Cellulitis Current Visit: No Status: Acute (2) Acute kidney injury Current Visit: Yes Status: Acute (3) HTN (hypertension) Current Visit: No Status: Chronic (4) HLD (hyperlipidemia) Current Visit: No Status: Acute (5) Mood disorder Current Visit: No Status: Chronic - Time Spent with Patient Total time spent is greater than 50% in coordination of care (as documented) at patient's floor/unit and/or counseling patient: 25 - 35 minutes Plan of Care Discussed with: patient Internal Medicine: Result - Labs CBC & Chem 7: 04/03/18 05:15 04/03/18 05:15 Labs: Short CBC 04/03/18 Range/Units 05:15 WBC 6.5 (4.3-11.1) K/mcL Hgb 9.0 L (11.5-15.4) g/dL Hct 29.1 L (35.3-44.9) % Plt Count 168 (140-400) K/mcL Neutrophils # 5.4 (1.6-8.9) K/mcL BMP 04/03/18 05:15 Sodium 136 Potassium 4.3 Chloride 104 Carbon Dioxide 28 BUN 16 Creatinine 2.10 H Glucose 105 Calcium 8.9 Urine 04/03/18 Range/Units 13:45 Urine Color Yellow (Yellow) Urine Clarity Cloudy A (Clear) Urine pH 6.0 (5.0-8.0) pH Units Ur Specific [place] 1.013 (1.010-1.025) Urine Protein Trace (Neg-Trace) mg/dL Urine Glucose (UA) Normal (Normal) mg/dL - ABG Interpretation ABG results: PT/INR, D-dimer PT 15.1 Seconds (9.4-12.1) H 03/26/18 13:04 Consult Discharge Plan - Plan Referrals: Bekah Ames [employer] [Primary Care Provider] - Christina Yee CNP [Advanced Practice Nurse] - 04/05/18 8:40 am (1) Cellulitis Qualifiers: Site of cellulitis: extremity Site of cellulitis of extremity: upper extremity Laterality: left Qualified Code(s): L03.114 - Cellulitis of left upper limb (3) HTN (hypertension) Qualifiers: Hypertension type: essential hypertension Qualified Code(s): I10 - Essential (primary) hypertension (4) HLD (hyperlipidemia) Qualifiers: Hyperlipidemia type: unspecified Qualified Code(s): E78.5 - Hyperlipidemia, unspecified
[2018-04-04] MEDS: Ondansetron 4 MG/2 ML VIAL IVP PRN (01:46)
[2018-04-04 04:01] LABS: Basophils % 0.1 %; Eosinophils % 0.1 %; Hematocrit 29.1 % (35.3-44.9); Hemoglobin 9.1 g/dL (11.5-15.4); Immature Granulocytes % 0.4 % (0-4); Lymphocytes # 0.4 K/mcL (0.6-4.6); Mean Corpuscular HGB Conc 31.3 g/dL (31.6-35.5); Mean Corpuscular Hemoglobin 28.9 pg (28.0-33.3); Mean Corpuscular Volume 92.4 fL (83.0-100.0); Mean Platelet Volume 10.8 fL (9.4-12.4); Monocytes # 0.5 K/mcL (0.0-1.3); Monocytes % 6.5 %; Neutrophils # 6.1 K/mcL (1.6-8.9); Platelet Count 196 K/mcL (140-400); Red Blood Count 3.15 M/mcL (3.82-4.97); Red Cell Distribution Width 14.4 % (11.5-14.5); Segmented Neutrophils % 87.9 %
[2018-04-04 04:15] LABS: Calcium 8.9 mg/dL (8.6-10.3); Potassium 4.7 mEq/L (3.5-5.1)
[2018-04-04] MEDS: *HR* Heparin 5,000 UNIT/ML VIAL SQ SCH ×3 (05:37→21:45)
[2018-04-04] MEDS: Ringers Solution, Lactated 1,000 ML IVC SCH ×2 (07:20→09:00)
--- NOTE | 2018-04-04 08:44 | Nephrology Progress Note ---
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 Continue to follow a renal protective/supportive strategy by avoiding nephrotoxins. Continue to hold NSAIDS Avoid nephrotoxins if possible Thank you. (2) Cellulitis Status: Acute per primary/ortho teams Pharmacy to dose Vancomycin Qualifiers: Site of cellulitis: extremity Site of cellulitis of extremity: upper extremity Laterality: left Qualified Code(s): L03.114 - Cellulitis of left upper limb (3) Abscess of left upper extremity Status: Acute As per primary. Subjective Principal diagnosis: PAM Interval history: Pt was seen/examined. She reported having some fatigue but did not affirm CP or diarrhea. Objective - Vital Signs Vital signs: Vital Signs Temp Pulse Resp BP Pulse Ox 04/04/18 06:23 98.5 F 80 18 128/73 94 04/04/18 03:35 98.5 F 100 20 118/73 92 04/04/18 02:30 99.1 F 77 20 109/68 94 04/04/18 02:05 98.6 F 89 20 133/86 94 04/03/18 19:21 99 04/03/18 15:57 97.6 F 78 16 128/72 90 04/03/18 10:38 97.4 F L 72 14 108/69 93 Intake and Output 04/03/18 04/04/18 04/04/18 23:59 07:59 15:59 Intake Total 294 / 294 312 / 312 Output Total 100 / 100 0 / 0 Balance 194 / 194 312 / 312 Intake: IV Fluids 294 / 294 312 / 312 Lactated Ringers 1,000 ML @ 100 294 / 294 mls/hr IVC .Q10H [facility] Rx#: [id number] Output: Urine 0 / 0 Emesis 100 / 100 Other: Meal Dinner Percent of Meal Consumed 0% # Bowel Movement Diapers 0 - General Appearance General appearance: Present: well-developed, well-nourished, appears started age EENT: Present: ATNC, PERRL, mucous membranes moist Neck: Present: supple Respiratory: Present: clear Cardiology: Present: edema (trace ankle edema b/l), normal S1, normal S2 Gastrointestinal: Present: normoactive bowel sounds, no tenderness, no guarding Integumentary: Present: warm and dry Neurologic: Present: no focal deficit, no asterixis, alert and oriented x3 Psychiatric: Present: cooperative - Lab 04/06/18 03:17 04/06/18 03:17 Most recent lab results Calcium 8.9 mg/dL (8.6-10.3) 04/04/18 03:46 Urine Creatinine 87 mg/dL 04/03/18 13:45 Urine Sodium 29.0 mEq/L 04/03/18 13:45 Consult Discharge Plan - Plan Additional Instructions: DISCHARGE INSTRUCTIONS Dr. Cee DISCHARGE DIAGNOSIS/PROCEDURE I&D of the left wrist ACTIVITY: Avoid aggressive activities with arm in which you were operated. Okay to move your fingers which will be good exercise. Consult occupational therapy for motion exercises, weightbearing as tolerated on the left upper extremity. WOUND CARE: Change the dressing daily and cleanse with warm, soapy water, rinse clean and rewrap with dry gauze. MEDICATIONS: Antibiotics: Continue antibiotics per the infectious disease team as recommended upon discharge FOLLOW-UP Follow-up with Dr. Cee or Caterina Temple PA-C at the office 1 week from the time of discharge for a wound evaluation. Call the office at [phone] to schedule or confirm your appointment. WHEN TO CALL THE DOCTOR OR WHEN TO SEEK CARE BEFORE YOUR APPOINTMENT 1. Excess swelling or increased numbness not made better by elevating the hand and moving the fingers. 2. Uncontrolled pain. 3. A color change in your hand or fingers. 4. Worsening redness or drainage. 5. Fevers over 100.5 degrees F or 38.1 degrees C. 6. Any symptoms that bring concern to you. Referrals: Bekah Ames CNP [Primary Care Provider] - Christina Yee CNP [Advanced Practice Nurse] - Prescriptions: Ondansetron ODT [Zofran ODT] 4 mg SL Q6HR PRN #10 tab.rapdis PRN Reason: Nausea And Vomiting Levofloxacin [Levaquin] 500 mg PO ONCE #1 tablet
[2018-04-04] MEDS: amLODIPine 5 MG TABLET PO SCH (08:54)
[2018-04-04] MEDS: Cholecalciferol (D-3) 1,000 UNIT TABLET PO SCH (08:54)
[2018-04-04] MEDS: Anastrozole 1 MG TABLET PO SCH (08:54)
--- NOTE | 2018-04-04 09:40 | Infectious Disease Progress No ---
Date of Encounter: 04/04/18 Time of Encounter: 08:50 - Assessment and Plan (1) Abscess of left upper extremity Current Visit: Yes Status: Acute Location: Left wrist. Causative organism: unclear. Status post I & D for cellulitis and early abscess 03/15/18. Intra-op cultures were negative (the patient had been on IV antibiotics for 3 days prior). Started on broad-spectrum antibiotics including Vanc and Zosyn. MRI cannot rule out septic arthritis or osteomyelitis. ESR 35, CRP 203. Orthopedics consulted and following. Status post I & D and I & D of the dorsal hand and wrist 03/27/[address] Cee. Operative note reviewed. ABscess noted intra-op. No septic arthritis or OM noted. Cultures (aerobic, anaerobic, and fungal) are no growth. AFB negative. Zosyn switched to Levaquin by the primary team. Continue Levaquin, but will need to dose-adjust for lower CrCl in light of new PAM. Continue Vancomycin IV. Pharmacy to dose. Goal trough ~15. Random Vanc level 04/03/18 was 13. Duration of treatment depends on the clinical picture. Will likely plan to treat with IV antibiotics for two weeks post-op. Recommend Vancomycin and Levaquin if cultures remain negative. Plan to treat through 04/09/18. industrial services worker to assist with discharge planning. The patient has declined rehab placement and is planning to return home with the help of her daughter and home health. Monitor renal function and for drug toxicity and dose-adjust antibiotics. PICC line placed. Will need weekly CBC, BUN/Cr, ESR, CRP, and Vanc trough. Will need weekly PICC care per protocol. (2) Cellulitis Current Visit: No Status: Acute Location: Left wrist. Causative organism unclear. MRI results noted. Orthopedics consulted. Continue antibiotics as above for now. Qualifiers: Site of cellulitis: extremity Site of cellulitis of extremity: upper extremity Laterality: left Qualified Code(s): L03.114 - Cellulitis of left upper limb (3) Transient synovitis, unspecified wrist Current Visit: Yes Status: Acute Qualifiers: Laterality: right Qualified Code(s): M67.331 - Transient synovitis, right wrist (4) HTN (hypertension) Current Visit: No Status: Chronic Qualifiers: Hypertension type: essential hypertension Qualified Code(s): I10 - Essenti al (primary) hypertension (5) Acute kidney injury Current Visit: Yes Status: Acute Serum creatinine improved. Likely secondary to Vanc toxicity, NSAIDs, and infection. Vanc dose adjusted. Continue to trend. Dose-adjust medications. Strict I's and O's. Nephrology consulted and following. (6) Nausea Current Visit: Yes Status: Acute Likely secondary to antibiotics. Management per the primary team. (7) Hypoxia Current Visit: Yes Status: Acute Etiology unclear. Given recent episodes of vomiting, concern for aspiration. Get PA/lateral CXR to evaluate. - Subjective Interval history: Patient seen and examined. Patient apparently had episode of nausea and vomiting. She then drank some water and got choked and became hypoxic. At this time, patient resting quietly in bed. Status post irrigation and debridement of the left hand and wrist 03/27/[address] Cee. States she does have some mild pain in the left wrist that continues to improve. Denies any fevers or chills or rigors. Denies chest pain or cough, but reports some shortness of breath when O2 was removed. Per nursing, SpO2 drops to 70's when off O2. Denies any vomiting or diarrhea. Two BMs documented yesterday per nursing. Reports nausea and appetite are improved, but she didn't eat much breakfast. Denies any abdominal pain or urinary complaints. She denies any oral thrush and no skin lesions. Infect Dis PN-Objective Data - Labs CBC & Chem 7: 04/05/18 04:08 04/05/18 04:08 Labs: Laboratory Results - last 24 hr 04/03/18 04/03/18 04/03/18 08:37 13:45 13:45 WBC RBC Hgb Hct MCV MCH MCHC RDW Plt Count MPV Immature Gran % Seg Neutrophils % Lymphocytes % Monocytes % Eosinophils % Basophils % Neutrophils # Lymphocytes # Monocytes # Eosinophils # Basophils # Sodium Potassium Chloride Carbon Dioxide BUN Creatinine Est GFR ( Amer) Est GFR (Non-Af Amer) BUN/Creatinine Ratio Glucose Calculated Osmolality Uric Acid 4.1 Calcium Creatine Kinase 13 L Urine Color Yellow Urine Clarity Cloudy A Urine pH 6.0 Ur Specific [place] 1.013 Urine Protein Trace Urine Glucose (UA) Normal Urine Ketones Negative Urine Blood Negative Urine Nitrite Negative Urine Bilirubin Negative Urine Urobilinogen Normal Ur Leukocyte Esterase Small H Urine Microscopic RBC 5-15 H Urine Microscopic WBC 5-15 H Ur Squamous Epith Cells Many H Urine Bacteria None Seen Hyaline Casts None Seen Ur Culture Indicated? NO. A Urine Creatinine 87 Urine Sodium 29.0 04/04/18 04/04/18 03:46 03:46 WBC 7.0 RBC 3.15 L Hgb 9.1 L Hct 29.1 L MCV 92.4 MCH 28.9 MCHC 31.3 L RDW 14.4 Plt Count 196 MPV 10.8 Immature Gran % 0.4 Seg Neutrophils % 87.9 Lymphocytes % 5.0 Monocytes % 6.5 Eosinophils % 0.1 Basophils % 0.1 Neutrophils # 6.1 Lymphocytes # 0.4 L Monocytes # 0.5 Eosinophils # 0.0 Basophils # 0.0 Sodium 135 L Potassium 4.7 Chloride 103 Carbon Dioxide 27 BUN 17 Creatinine 2.19 H Est GFR ( Amer) 26 L Est GFR (Non-Af Amer) 21 L BUN/Creatinine Ratio 8 Glucose 128 H Calculated Osmolality 283 Uric Acid Calcium 8.9 Creatine Kinase Urine Color Urine Clarity Urine pH Ur Specific [place] Urine Protein Urine Glucose (UA) Urine Ketones Urine Blood Urine Nitrite Urine Bilirubin Urine Urobilinogen Ur Leukocyte Esterase Urine Microscopic RBC Urine Microscopic WBC Ur Squamous Epith Cells Urine Bacteria Hyaline Casts Ur Culture Indicated? Urine Creatinine Urine Sodium Cultures: Cultures 03/27/18 18:14 Anaerobic Culture - Final Left Wrist - Abscess No anaerobes were recovered. 03/26/18 13:04 Blood Culture - Final Peripheral Venipuncture No growth. Final report. 03/27/18 18:14 Wound Culture - Final Left Wrist - Abscess No growth. 03/27/18 18:14 Acid Fast Stain - Final Left Wrist - Abscess Serology 04/03/18 04/03/18 04/03/18 Range/Units 13:45 13:45 01:34 Urine Color Yellow (Yellow) Urine Clarity Cloudy A (Clear) Urine pH 6.0 (5.0-8.0) pH Units Ur Specific [place] 1.013 (1.010-1.025) Urine Protein Trace (Neg-Trace) mg/dL Urine Glucose (UA) Normal (Normal) mg/dL Urine Ketones Negative (Negative) mg/dL Urine Blood Negative (Negative) Urine Nitrite Negative (Negative) Urine Bilirubin Negative (Negative) Urine Urobilinogen Normal (Normal) mg/dL Ur Leukocyte Esterase Small H (Negative) Urine Microscopic RBC 5-15 H (0-3) per hpf Urine Microscopic WBC 5-15 H (0-3) per hpf Ur Eosinophil Smear 0 (None Seen) % Ur Squamous Epith Cells Many H (None-Few) per lpf Urine Bacteria None Seen (None-Few) per hpf Hyaline Casts None Seen (None-Few) per lpf Ur Culture Indicated? NO. A (NO) Urine Creatinine 87 mg/dL Urine Sodium 29.0 mEq/L Exam - Constitutional Vitals: Temp Pulse Resp BP Pulse Ox 98.5 F 80 18 128/73 94 04/04/18 06:23 04/04/18 06:23 04/04/18 06:23 04/04/18 06:23 04/04/18 06:23 General appearance: average body habitus, cooperative, no acute distress - Head Head exam: Present: atraumatic, normal inspection, normocephalic - Eye Eye exam: Present: EOMI, normal appearance, PERRL Pupils: Present: normal accommodation - ENT ENT exam: Present: mucous membranes moist - Neck Neck exam: Present: normal inspection - Respiratory Respiratory exam: Present: CTAB. Absent: rales, respiratory distress, rhonchi, wheezes - Cardiovascular Cardiovascular exam: Present: RRR, +S1, +S2 - GI/Abdominal GI/Abdominal exam: Present: normal bowel sounds, soft. Absent: distended, tenderness - Extremities Exam Extremities exam: Present: tenderness (left hand/wrist). Absent: full ROM (Left hand/wrist ROM improved.), normal inspection (LUE dressing C/D/I.), pedal edema - Neurological Exam Neurological exam: Present: alert, oriented X3, no focal deficits - Psychiatric Psychiatric exam: Present: normal affect, normal mood - Skin Skin exam: Present: dry, intact, normal color, warm Consult Discharge Plan - Plan Referrals: Bekah Ames CNP [Primary Care Provider] - Christina Yee CNP [Advanced Practice Nurse] - - Attending Attestation I examined this patient and my medical decision-making was reviewed with the Resident Physician. I agree with the documented findings, disposition and treatment plan as described except to the extent set forth below.
[2018-04-04] MEDS ORDERED: Vancomycin 500 MG in 0.9 % Sodium Chloride Mini Bag 100 ML IVPB ONE ×2 (12:00→20:00)
[2018-04-04] MEDS ORDERED: Furosemide 40 MG/4 ML VIAL IVP ONE (13:17)
[2018-04-04] MEDS: Lactobacillus 1 EACH CAP.SPRINK PO SCH (14:08)
--- NOTE | 2018-04-04 14:25 | Orthopedics Progress Note ---
Date of Encounter: 04/04/18 Time of Encounter: 14:24 - Assessment and Plan (1) Cellulitis Current Visit: No Status: Acute Qualifiers: Site of cellulitis: extremity Site of cellulitis of extremity: upper extremity Laterality: left Qualified Code(s): L03.114 - Cellulitis of left upper limb Subjective Interval history: S: Pain continues to improve to the left wrist and hand O: Afebrile on the vital signs are stable Incision is healing well with healthy-appearing granulation tissue at the wound bed Minimal serosanguineous drainage. No purulence. Improvement, near complete resolution in the erythema and swelling Pain with motion of the wrist and digits She can grossly flex and extend the digits with limitation due to pain The fingertips are all grossly sensate and well-perfused, and the radial artery pulse is 2+. A: Post repeat I and D of the left wrist P: No fluctuance or concern for further abscess No plans for further operative I and D at this time. Continue IV antibiotics per primary team. Local wound care with twice daily warm, soapy soaks Keep wound covered Elevation of the left upper extremity Digital motion exercises under the direction of therapy Objective Vital signs: Vital Signs Temp Pulse Resp BP Pulse Ox 04/04/18 10:37 97.4 F L 80 18 116/71 94 04/04/18 06:23 98.5 F 80 18 128/73 94 04/04/18 03:35 98.5 F 100 20 118/73 92 04/04/18 02:30 99.1 F 77 20 109/68 94 04/04/18 02:05 98.6 F 89 20 133/86 94 04/03/18 19:21 99 04/03/18 15:57 97.6 F 78 16 128/72 90 Intake and Output 04/03/18 04/04/18 04/04/18 23:59 07:59 15:59 Intake Total 294 / 294 312 / 312 120 / 120 Output Total 100 / 100 0 / 0 500 / 500 Balance 194 / 194 312 / 312 -380 / -380 Intake: IV Fluids 294 / 294 312 / 312 Lactated Ringers 1,000 ML @ 100 294 / 294 mls/hr IVC .Q10H [facility] Rx#: [id number] Oral 120 / 120 Output: Urine 0 / 0 500 / 500 Emesis 100 / 100 Other: Meal Dinner Lunch Percent of Meal Consumed 0% 0% Stool Size Moderate Stool Consistency loose Stool Characteristics Mucoid # Urine Diapers 1 # Bowel Movements 0 # Bowel Movement Diapers 0 - Labs CBC & BMP: 04/04/18 03:46 04/04/18 03:46 Labs: Abnormal lab results RBC 3.15 M/mcL (3.82-4.97) L 04/04/18 03:46 Hgb 9.1 g/dL (11.5-15.4) L 04/04/18 03:46 Hct 29.1 % (35.3-44.9) L 04/04/18 03:46 MCHC 31.3 g/dL (31.6-35.5) L 04/04/18 03:46 Lymphocytes # 0.4 K/mcL (0.6-4.6) L 04/04/18 03:46 ESR 33 mm/hr (0-15) H 04/01/18 19:56 PT 15.1 Seconds (9.4-12.1) H 03/26/18 13:04 Sodium 135 mEq/L (136-145) L 04/04/18 03:46 Creatinine 2.19 mg/dL (0.60-1.20) H 04/04/18 03:46 Est GFR ( Amer) 26 (> 60) L 04/04/18 03:46 Est GFR (Non-Af Amer) 21 (> 60) L 04/04/18 03:46 Glucose 128 mg/dL (70-105) H 04/04/18 03:46 POC Glucose 67 mg/dL (70-99) L 03/27/18 17:24 Creatine Kinase 13 Units/L (30-223) L 04/03/18 08:37 C-Reactive Protein 184 mg/L (Less than 10) H 04/01/18 19:56 Serum Total Protein 5.9 g/dL (6.4-8.9) L 03/26/18 13:04 Albumin 2.9 g/dL (3.5-5.7) L 03/26/18 13:04 Albumin/Globulin Ratio 1.0 (1.1-2.2) L 03/26/18 13:04 Urine Clarity Cloudy (Clear) A 04/03/18 13:45 Ur Leukocyte Esterase Small (Negative) H 04/03/18 13:45 Urine Microscopic RBC 5-15 per hpf (0-3) H 04/03/18 13:45 Urine Microscopic WBC 5-15 per hpf (0-3) H 04/03/18 13:45 Ur Squamous Epith Cells Many per lpf (None-Few) H 04/03/18 13:45 Ur Culture Indicated? NO. (NO) A 04/03/18 13:45 Vancomycin Trough 26 mcg/mL (5-10) H 04/01/18 05:16 Consult Discharge Plan - Plan Referrals: Bekah Ames CNP [Primary Care Provider] - Christina Yee CNP [Advanced Practice Nurse] - 04/05/18 8:40 am
--- NOTE | 2018-04-04 21:18 | Internal Med Progress Note ---
Hospitalist Progress Note - Encounter Date of Encounter: 04/04/18 Time of Encounter: 19:00 - Subjective Interval History: SUBJECTIVE: The patient is afebrile. The pain in the area of left wrist is mild; the redness and swelling are nearly gone. He did have some nausea and vomiting recently. Subsequently, she developed hypoxia. She is currently on 4 L/min nasal cannula oxygen. Denies chest pain. Denies coughing and wheezing. Denies abdominal pain. OBJECTIVE: Skin: Free of rash and discoloration. See notes from orthopedic surgery and infectious diseases describing left wrist area. ENMT: Oral/pharyngeal mucosa is normal in appearance. Eyes: Sclera is white. There is no discharge from eyes. Respiratory: Normal breath sounds; no crackles or wheezes. CV: Heart is regular; no gallop or murmur. GI: Abdomen is soft and not tender. There is no palpable mass or visceromegaly. Neuro: There is no focal deficits. ADDITIONAL DATA: Chest x-ray from today shows left basilar opacification and effusion. It showed stable cardiomegaly and central vascular congestion. There is no convincing evidence of overt failure. Hemoglobin is 9.1 (9.0 yesterday). WBC 7.0 thousand. Her creatinine is 2.19; 2.10 yesterday and 0.40 at admission. Her urine from yesterday is negative for nitrite. It shows only small amount of leukocyte esterase. ASSESSMENT AND PLAN: Cellulitis of left wrist. See notes from orthopedics and infectious diseases. The patient is on IV vancomycin/IV Levaquin. Getting better. Acute hypoxic respiratory failure. It could represent aspiration pneumonia. Could also be resulting from atelectasis and/or pulmonary congestion (in the setting of acute kidney injury). We will continue previously ordered IV vancomycin and IV Levaquin. We will repeat chest x-ray tomorrow. Acute kidney injury. She had normal creatinine that the admission. See notes from nephrology. Hypertension. Under control. To continue Norvasc. Hyperlipidemia. Continue Zocor. - Exam Vitals: Temp Pulse Resp BP Pulse Ox 98.5 F 97 16 136/76 96 04/04/18 18:29 04/04/18 18:29 04/04/18 18:29 04/04/18 18:29 04/04/18 18:29 Exam: xx - Assessment and Plan (1) Cellulitis Current Visit: No Status: Acute (2) Acute respiratory failure with hypoxia Current Visit: Yes Status: Acute (3) Acute kidney injury Current Visit: Yes Status: Acute (4) HTN (hypertension) Current Visit: No Status: Chronic (5) HLD (hyperlipidemia) Current Visit: No Status: Acute (6) Mood disorder Current Visit: No Status: Chronic - Time Spent with Patient Total time spent is greater than 50% in coordination of care (as documented) at patient's floor/unit and/or counseling patient: 25 - 35 minutes Plan of Care Discussed with: patient (and nurse..) Internal Medicine: Result - Labs CBC & Chem 7: 04/04/18 03:46 04/04/18 03:46 Labs: Short CBC 04/04/18 Range/Units 03:46 WBC 7.0 (4.3-11.1) K/mcL Hgb 9.1 L (11.5-15.4) g/dL Hct 29.1 L (35.3-44.9) % Plt Count 196 (140-400) K/mcL Neutrophils # 6.1 (1.6-8.9) K/mcL BMP 04/04/18 03:46 Sodium 135 L Potassium 4.7 Chloride 103 Carbon Dioxide 27 BUN 17 Creatinine 2.19 H Glucose 128 H Calcium 8.9 - ABG Interpretation ABG results: PT/INR, D-dimer PT 15.1 Seconds (9.4-12.1) H 03/26/18 13:04 - Impressions Impressions Chest X-Ray 04/04/18 08:50 IMPRESSION: Left basilar opacification and effusion. Stable cardiomegaly and central vascular congestion with no convincing evidence of overt failure. D/ / Austin Rivas MD / Austin Rivas MD Interpreting Provider: Austin Rivas MD Consult Discharge Plan - Plan Referrals: Bekah Ames [employer] CUSTODIAN [Primary Care Provider] - Christina Yee CNP [Advanced Practice Nurse] - 04/05/18 8:40 am (1) Cellulitis Qualifiers: Site of cellulitis: extremity Site of cellulitis of extremity: upper extremity Laterality: left Qualified Code(s): L03.114 - Cellulitis of left upper limb (4) HTN (hypertension) Qualifiers: Hypertension type: essential hypertension Qualified Code(s): I10 - Essential (primary) hypertension (5) HLD (hyperlipidemia) Qualifiers: Hyperlipidemia type: unspecified Qualified Code(s): E78.5 - Hyperlipidemia, unspecified
[2018-04-04] MEDS: Latanoprost 2.5 ML BOTTLE BOTH EYES SCH (21:49)
[2018-04-05 04:02] LABS: Basophils % 0.3 %; Eosinophils % 0.3 %; Hematocrit 27.5 % (35.3-44.9); Hemoglobin 8.7 g/dL (11.5-15.4); Immature Granulocytes % 0.3 % (0-4); Lymphocytes # 0.4 K/mcL (0.6-4.6); Mean Corpuscular HGB Conc 31.6 g/dL (31.6-35.5); Mean Corpuscular Hemoglobin 28.6 pg (28.0-33.3); Mean Corpuscular Volume 90.5 fL (83.0-100.0); Mean Platelet Volume 10.6 fL (9.4-12.4); Monocytes # 0.7 K/mcL (0.0-1.3); Monocytes % 9.3 %; Platelet Count 200 K/mcL (140-400); Red Blood Count 3.04 M/mcL (3.82-4.97); Red Cell Distribution Width 14.5 % (11.5-14.5); Segmented Neutrophils % 83.8 %
[2018-04-05 04:22] LABS: Calcium 8.8 mg/dL (8.6-10.3); Potassium 4.3 mEq/L (3.5-5.1)
[2018-04-05] MEDS: *HR* Heparin 5,000 UNIT/ML VIAL SQ SCH ×3 (05:28→21:24)
[2018-04-05] MEDS: Lactobacillus 1 EACH CAP.SPRINK PO SCH (09:17)
[2018-04-05] MEDS: *HR* Promethazine 25 MG/ML VIAL IVP PRN (09:27)
[2018-04-05] MEDS ORDERED: Vancomycin 500 MG in 0.9 % Sodium Chloride Mini Bag 100 ML IVPB ONE ×2 (09:30→21:30)
[2018-04-05] MEDS: amLODIPine 5 MG TABLET PO SCH (09:40)
[2018-04-05] MEDS: Anastrozole 1 MG TABLET PO SCH (09:41)
[2018-04-05] MEDS: Cholecalciferol (D-3) 1,000 UNIT TABLET PO SCH (09:41)
[2018-04-05] MEDS: *HR* OxyCODONE Immed Rel 5 MG TABLET PO PRN (09:42)
[2018-04-05] MEDS: Ringers Solution, Lactated 1,000 ML IVC SCH (09:58)
--- NOTE | 2018-04-05 10:53 | Nephrology Progress Note ---
Addendum entered and electronically signed by He Lantigua DO 04/09/18 13:16: I have personally performed a face to face evaluation on this patient. I have reviewed and agree with the care plan. History and Exam by me shows: Stable renal dysfunction, and I suspect a nephrotoxic ATN, however with stable labs, continue to follow a renal protective/conservative strategy as described below. Original Note: Date of Encounter: 04/05/18 Time of Encounter: 10:04 - Assessment and Plan (1) Acute kidney injury Current Visit: Yes Status: Acute Scr 2.19 and GFR 21-has remained stable but no improvement UOP 1000ml Suspect PAM from multiple factors including Vanco, abscess/infection, NSAIDs Continue to hold NSAIDS Contine IV fluids Pharmacy to dose Vanco Avoid nephrotoxins if possible (2) Cellulitis Current Visit: No Status: Acute per primary/ortho teams Pharmacy to dose Vancomycin Qualifiers: Site of cellulitis: extremity Site of cellulitis of extremity: upper extremity Laterality: left Qualified Code(s): L03.114 - Cellulitis of left upper limb (3) Abscess of left upper extremity Current Visit: Yes Status: Acute per primary/ortho teams Pharmacy to dose Vanco Subjective Principal diagnosis: PAM, cellulitis Interval history: Patient seen and examined. at bedside, states patient not doing well, not eating or drinking much. states she is weak and he does not want her discharged to home. They have her mother who lives with them and they take care of; states his [id number] is 89 years old, in good physical shape but bad dementia Objective - Vital Signs Vital signs: Vital Signs Temp Pulse Resp BP Pulse Ox 04/05/18 06:27 98.9 F 84 15 124/72 98 04/05/18 04:05 99.0 F 89 16 121/72 90 04/04/18 23:35 84 94 04/04/18 18:29 98.5 F 97 16 136/76 96 04/04/18 10:37 97.4 F L 80 18 116/71 94 Intake and Output 04/04/18 04/05/18 04/05/18 23:59 07:59 15:59 Intake Total 120 / 120 1200 / 1200 120 / 120 Output Total 300 / 300 700 / 700 Balance -180 / -180 500 / 500 120 / 120 Intake: IV Fluids 1100 / 1100 Lactated Ringers 1,000 ML @ 50 1000 / 1000 mls/hr IVC .Q20H [facility] Rx#: [id number] Vancocin 500 MG In 0.9 % Sodium 100 / 100 Chloride (Mini-Bag +) 100 ML @ 100 mls/hr IVPB ONCE ONE Rx#: [id number] Oral 120 / 120 100 / 100 120 / 120 Output: Urine 300 / 300 700 / 700 Other: Meal Dinner Breakfast Percent of Meal Consumed 5% 90% Stool Size Small Stool Consistency soft Stool Color Brown # Bowel Movements 1 Weight 82 kg Patient Weight 04/05/18 23:59 Weight 82 kg - General Appearance General appearance: Present: well-developed, well-nourished EENT: Present: ATNC, mucous membranes moist, hearing intact, vision intact Neck: Present: supple Respiratory: Present: clear Cardiology: Present: no edema, normal S1, normal S2 Gastrointestinal: Present: no tenderness, no guarding Integumentary: Present: warm and dry Psychiatric: Present: mood/affect appropriate, cooperative - Lab 04/05/18 04:08 04/05/18 04:08 Most recent lab results Calcium 8.8 mg/dL (8.6-10.3) 04/05/18 04:08 Urine Creatinine 87 mg/dL 04/03/18 13:45 Urine Sodium 29.0 mEq/L 04/03/18 13:45 Consult Discharge Plan - Plan Referrals: Bekah Ames TENTER FEEDER [Primary Care Provider] - Christina Yee CNP [Advanced Practice Nurse] -
--- NOTE | 2018-04-05 11:51 | Infectious Disease Progress No ---
Date of Encounter: 04/05/18 Time of Encounter: 11:49 - Assessment and Plan (1) Abscess of left upper extremity Current Visit: Yes Status: Acute Location: Left wrist. Causative organism: unclear. Status post I & D for cellulitis and early abscess 03/15/18. Intra-op cultures were negative (the patient had been on IV antibiotics for 3 days prior). Started on broad-spectrum antibiotics including Vanc and Zosyn. MRI cannot rule out septic arthritis or osteomyelitis. ESR 35, CRP 203. Orthopedics consulted and following. Status post I & D and I & D of the dorsal hand and wrist 03/27/[address] Cee. Operative note reviewed. ABscess noted intra-op. No septic arthritis or OM noted. Cultures (aerobic, anaerobic, and fungal) are no growth. AFB negative. Zosyn switched to Levaquin by the primary team. Continue Levaquin, but will need to dose-adjust for lower CrCl in light of new PAM. Continue Vancomycin IV. Pharmacy to dose. Goal trough ~15. Random Vanc level 04/03/18 was 13. Duration of treatment depends on the clinical picture. Will likely plan to treat with IV antibiotics for two weeks post-op. Recommend Vancomycin and Levaquin if cultures remain negative. Plan to treat through 04/09/18. guest services associate to assist with discharge planning. The patient has declined rehab placement and is planning to return home with the help of her daughter and home health. Monitor renal function and for drug toxicity and dose-adjust antibiotics. PICC line placed. Will need weekly CBC, BUN/Cr, ESR, CRP, and Vanc trough. Will need weekly PICC care per protocol. (2) Cellulitis Current Visit: No Status: Acute Location: Left wrist. Causative organism unclear. MRI results noted. Orthopedics consulted. Continue antibiotics as above for now. Qualifiers: Site of cellulitis: extremity Site of cellulitis of extremity: upper extremity Laterality: left Qualified Code(s): L03.114 - Cellulitis of left upper limb (3) Transient synovitis, unspecified wrist Current Visit: Yes Status: Acute Qualifiers: Laterality: right Qualified Code(s): M67.331 - Transient synovitis, right wrist (4) HTN (hypertension) Current Visit: No Status: Chronic Qualifiers: Hypertension type: essential hypertension Qualified Code(s): I10 - Essenti al (primary) hypertension (5) Acute kidney injury Current Visit: Yes Status: Acute Serum creatinine stable at 2.19. Likely secondary to Vanc toxicity, NSAIDs, and infection. Vanc dose adjusted. Continue to trend. Dose-adjust medications. Strict I's and O's. Nephrology consulted and following. (6) Nausea Current Visit: Yes Status: Acute Likely secondary to antibiotics. Management per the primary team. (7) Hypoxia Current Visit: Yes Status: Acute Etiology unclear. Given recent episodes of vomiting, concern for aspiration. CXR showed left basilar opacity, but no obvious PNA. Had another episode of choking when she drank this morning. Recommend CONSTRUCTION MGR to evaluate. - Subjective Interval history: Patient seen and examined. No acute events noted overnight. Patient states she doesn't feel very well today. Reports she had an episode of choking when she drank some pop this morning again. Status post irrigation and debridement of the left hand and wrist 03/27/[address] Cee. States she does have some mild pain in the left wrist that continues to improve. Denies any fevers or chills or rigors. Denies chest pain or cough, but reports some shortness of breath. Currently off O2 adn SpO2 94%. Denies any vomiting or diarrhea. Reports soft stool this morning. Reports nausea and appetite are improved, but she didn't eat much breakfast. Denies any abdominal pain or urinary complaints. She denies any oral thrush and no skin lesions. Infect Dis PN-Objective Data - Labs CBC & Chem 7: 04/06/18 03:17 04/06/18 03:17 Labs: Laboratory Results - last 24 hr 04/05/18 04/05/18 04:08 04:08 WBC 7.1 RBC 3.04 L Hgb 8.7 L Hct 27.5 L MCV 90.5 MCH 28.6 MCHC 31.6 RDW 14.5 Plt Count 200 MPV 10.6 Immature Gran % 0.3 Seg Neutrophils % 83.8 Lymphocytes % 6.0 Monocytes % 9.3 Eosinophils % 0.3 Basophils % 0.3 Neutrophils # 6.0 Lymphocytes # 0.4 L Monocytes # 0.7 Eosinophils # 0.0 Basophils # 0.0 Sodium 133 L Potassium 4.3 Chloride 101 Carbon Dioxide 26 BUN 18 Creatinine 2.19 H Est GFR ( Amer) 26 L Est GFR (Non-Af Amer) 21 L BUN/Creatinine Ratio 8 Glucose 117 H Calculated Osmolality 279 L Calcium 8.8 Cultures: Cultures 03/27/18 18:14 Anaerobic Culture - Final Left Wrist - Abscess No anaerobes were recovered. 03/26/18 13:04 Blood Culture - Final Peripheral Venipuncture No growth. Final report. 03/27/18 18:14 Wound Culture - Final Left Wrist - Abscess No growth. 03/27/18 18:14 Acid Fast Stain - Final Left Wrist - Abscess Serology 04/03/18 04/03/18 04/03/18 Range/Units 13:45 13:45 01:34 Urine Color Yellow (Yellow) Urine Clarity Cloudy A (Clear) Urine pH 6.0 (5.0-8.0) pH Units Ur Specific [place] 1.013 (1.010-1.025) Urine Protein Trace (Neg-Trace) mg/dL Urine Glucose (UA) Normal (Normal) mg/dL Urine Ketones Negative (Negative) mg/dL Urine Blood Negative (Negative) Urine Nitrite Negative (Negative) Urine Bilirubin Negative (Negative) Urine Urobilinogen Normal (Normal) mg/dL Ur Leukocyte Esterase Small H (Negative) Urine Microscopic RBC 5-15 H (0-3) per hpf Urine Microscopic WBC 5-15 H (0-3) per hpf Ur Eosinophil Smear 0 (None Seen) % Ur Squamous Epith Cells Many H (None-Few) per lpf Urine Bacteria None Seen (None-Few) per hpf Hyaline Casts None Seen (None-Few) per lpf Ur Culture Indicated? NO. A (NO) Urine Creatinine 87 mg/dL Urine Sodium 29.0 mEq/L Exam - Constitutional Vitals: Temp Pulse Resp BP Pulse Ox 98.6 F 84 18 106/68 92 04/05/18 10:30 04/05/18 10:30 04/05/18 10:30 04/05/18 10:30 04/05/18 10:30 General appearance: average body habitus, cooperative, no acute distress - Head Head exam: Present: atraumatic, normal inspection, normocephalic - Eye Eye exam: Present: EOMI, normal appearance, PERRL Pupils: Present: normal accommodation - ENT ENT exam: Present: mucous membranes moist - Neck Neck exam: Present: normal inspection - Respiratory Respiratory exam: Present: CTAB. Absent: rales, respiratory distress, rhonchi, wheezes - Cardiovascular Cardiovascular exam: Present: RRR, +S1, +S2 - GI/Abdominal GI/Abdominal exam: Present: normal bowel sounds, soft. Absent: distended, tenderness - Extremities Exam Extremities exam: Absent: joint swelling, normal inspection (Left hand/wrist dressing C/D/I.), pedal edema, tenderness - Neurological Exam Neurological exam: Present: alert, oriented X3, no focal deficits - Psychiatric Psychiatric exam: Present: normal affect, normal mood - Skin Skin exam: Present: dry, intact, normal color, warm Consult Discharge Plan - Plan Referrals: Bekah Ames CNP [Primary Care Provider] - Christina Yee CNP [Advanced Practice Nurse] - - Attending Attestation I examined this patient and my medical decision-making was reviewed with the Resident Physician. I agree with the documented findings, disposition and treatment plan as described except to the extent set forth below.
[2018-04-05] MEDS: Levofloxacin 500 MG/100 ML 500 MG/100 ML BAG IVPB SCH (14:02)
--- NOTE | 2018-04-05 16:15 | Internal Med Progress Note ---
Hospitalist Progress Note - Encounter Date of Encounter: 04/05/18 Time of Encounter: 16:06 - Subjective Interval History: SUBJECTIVE: The patient hypoxia observed yesterday completely subsided. She is 92% on room air today afternoon. She is afebrile. Complains of poor appetite/off and on nausea but not vomiting. The last time she vomited was about 2 days ago. He denies abdominal pain. She makes good amounts of urine. Her left wrist her pain is mild. OBJECTIVE: Skin: Free of rash and discoloration. See notes from orthopedic surgery and infectious diseases describing left wrist area. ENMT: Oral/pharyngeal mucosa is normal in appearance. Eyes: Sclera is white. There is no discharge from eyes. Respiratory: Normal breath sounds; no crackles or wheezes. CV: Heart is regular; no gallop or murmur. GI: Abdomen is soft and not tender. There is no palpable mass or visceromegaly. Neuro: There is no focal deficits. ADDITIONAL DATA: Chest x-ray from yesterday showed left basilar opacification and effusion. It showed stable cardiomegaly and central vascular congestion. There was no convincing evidence of overt failure. Hemoglobin is 8.7; 9.1 yesterday. Her WBC is 7.1 thousand. Creatinine is 2.19; the same yesterday. She has normal electrolytes. Her urine from the day before yesterday is negative for nitrite. It shows only small amount of leukocyte esterase. ASSESSMENT AND PLAN: Cellulitis of left wrist. See notes from orthopedics and infectious diseases. The patient is on IV vancomycin/IV Levaquin. Getting better. Acute hypoxic respiratory failure. Subsided. It was likely secondary to atelectasis of both lungs. We will offer her incentive spirometry. She is on IV vancomycin/IV Levaquinordered for treatment of left wrist cellulitis. Acute kidney injury. She had normal creatinine that the admission. See notes from nephrology. This is likely multifactorial problem: Infection and/or IV vancomycin and/or volume contraction (nausea and vomiting). Hypertension. Under control. To continue Norvasc. Hyperlipidemia. Continue Zocor. - Exam Vitals: Temp Pulse Resp BP Pulse Ox 98.6 F 84 18 106/68 92 04/05/18 10:30 04/05/18 10:30 04/05/18 10:30 10/25/18 10:30 04/05/18 10:30 Exam: xx - Assessment and Plan (1) Cellulitis Current Visit: No Status: Acute (2) Acute respiratory failure with hypoxia Current Visit: Yes Status: Acute (3) Acute kidney injury Current Visit: Yes Status: Acute (4) HTN (hypertension) Current Visit: No Status: Chronic (5) HLD (hyperlipidemia) Current Visit: No Status: Acute (6) Mood disorder Current Visit: No Status: Chronic - Time Spent with Patient Total time spent is greater than 50% in coordination of care (as documented) at patient's floor/unit and/or counseling patient: 25 - 35 minutes Plan of Care Discussed with: patient (and family..) Internal Medicine: Result - Labs CBC & Chem 7: 04/05/18 04:08 04/05/18 04:08 Labs: Short CBC 04/05/18 Range/Units 04:08 WBC 7.1 (4.3-11.1) K/mcL Hgb 8.7 L (11.5-15.4) g/dL Hct 27.5 L (35.3-44.9) % Plt Count 200 (140-400) K/mcL Neutrophils # 6.0 (1.6-8.9) K/mcL BMP 04/05/18 04:08 Sodium 133 L Potassium 4.3 Chloride 101 Carbon Dioxide 26 BUN 18 Creatinine 2.19 H Glucose 117 H Calcium 8.8 - ABG Interpretation ABG results: PT/INR, D-dimer PT 15.1 Seconds (9.4-12.1) H 03/26/18 13:04 Consult Discharge Plan - Plan Referrals: Bekah Amse CNP [Primary Care Provider] - Christina Yee CNP [Advanced Practice Nurse] - (1) Cellulitis Qualifiers: Site of cellulitis: extremity Site of cellulitis of extremity: upper extremity Laterality: left Qualified Code(s): L03.114 - Cellulitis of left upper limb (4) HTN (hypertension) Qualifiers: Hypertension type: essential hypertension Qualified Code(s): I10 - Essential (primary) hypertension (5) HLD (hyperlipidemia) Qualifiers: Hyperlipidemia type: unspecified Qualified Code(s): E78.5 - Hyperlipidemia, unspecified
[2018-04-05] MEDS: Latanoprost 2.5 ML BOTTLE BOTH EYES SCH (21:22)
--- NOTE | 2018-04-05 22:38 | Orthopedics Progress Note ---
Date of Encounter: 04/05/18 Time of Encounter: 17:20 - Assessment and Plan (1) Cellulitis Current Visit: No Status: Acute Qualifiers: Site of cellulitis: extremity Site of cellulitis of extremity: upper extremity Laterality: left Qualified Code(s): L03.114 - Cellulitis of left upper limb Subjective Principal diagnosis: PAM, cellulitis Interval history: S: Pain continues to improve to the left wrist and hand O: Afebrile on the vital signs are stable Incision is healing well with healthy-appearing granulation tissue at the wound bed Minimal serosanguineous drainage. No purulence. Improvement, near complete resolution in the erythema and swelling Pain with motion of the wrist and digits She can grossly flex and extend the digits with limitation due to pain The fingertips are all grossly sensate and well-perfused, and the radial artery pulse is 2+. A: Post repeat I and D of the left wrist P: No fluctuance or concern for further abscess No plans for further operative I and D at this time. Continue IV antibiotics per primary team. Local wound care with twice daily warm, soapy soaks Keep wound covered Elevation of the left upper extremity Digital motion exercises under the direction of therapy Objective Vital signs: Vital Signs Temp Pulse Resp BP Pulse Ox 04/05/18 18:56 98.4 F 85 15 137/79 98 04/05/18 10:30 98.6 F 84 18 106/68 92 04/05/18 06:27 98.9 F 84 15 124/72 98 04/05/18 04:05 99.0 F 89 16 121/72 90 04/04/18 23:35 84 94 Intake and Output 04/05/18 04/05/18 04/05/18 07:59 15:59 23:59 Intake Total 1200 / 1200 120 / 120 120 / 120 Output Total 700 / 700 Balance 500 / 500 120 / 120 120 / 120 Intake: IV Fluids 1100 / 1100 Lactated Ringers 1,000 ML @ 50 1000 / 1000 mls/hr IVC .Q20H [facility] Rx#: [id number] Vancocin 500 MG In 0.9 % Sodium 100 / 100 Chloride (Mini-Bag +) 100 ML @ 100 mls/hr IVPB ONCE ONE Rx#: [id number] Oral 100 / 100 120 / 120 120 / 120 Output: Urine 700 / 700 Other: Meal Breakfast Dinner Percent of Meal Consumed 90% 50% Stool Size Small Stool Consistency soft Stool Color Brown # Bowel Movements 1 Weight 82 kg Patient Weight 04/05/18 23:59 Weight 82 kg - Labs CBC & BMP: 04/05/18 04:08 04/05/18 04:08 Labs: Abnormal lab results RBC 3.04 M/mcL (3.82-4.97) L 04/05/18 04:08 Hgb 8.7 g/dL (11.5-15.4) L 04/05/18 04:08 Hct 27.5 % (35.3-44.9) L 04/05/18 04:08 Lymphocytes # 0.4 K/mcL (0.6-4.6) L 04/05/18 04:08 ESR 33 mm/hr (0-15) H 04/01/18 19:56 PT 15.1 Seconds (9.4-12.1) H 03/26/18 13:04 Sodium 133 mEq/L (136-145) L 04/05/18 04:08 Creatinine 2.19 mg/dL (0.60-1.20) H 04/05/18 04:08 Est GFR ( Amer) 26 (> 60) L 04/05/18 04:08 Est GFR (Non-Af Amer) 21 (> 60) L 04/05/18 04:08 Glucose 117 mg/dL (70-105) H 04/05/18 04:08 POC Glucose 67 mg/dL (70-99) L 03/27/18 17:24 Calculated Osmolality 279 (280-300) L 04/05/18 04:08 Creatine Kinase 13 Units/L (30-223) L 04/03/18 08:37 C-Reactive Protein 184 mg/L (Less than 10) H 04/01/18 19:56 Serum Total Protein 5.9 g/dL (6.4-8.9) L 03/26/18 13:04 Albumin 2.9 g/dL (3.5-5.7) L 03/26/18 13:04 Albumin/Globulin Ratio 1.0 (1.1-2.2) L 03/26/18 13:04 Urine Clarity Cloudy (Clear) A 04/03/18 13:45 Ur Leukocyte Esterase Small (Negative) H 04/03/18 13:45 Urine Microscopic RBC 5-15 per hpf (0-3) H 04/03/18 13:45 Urine Microscopic WBC 5-15 per hpf (0-3) H 04/03/18 13:45 Ur Squamous Epith Cells Many per lpf (None-Few) H 04/03/18 13:45 Ur Culture Indicated? NO. (NO) A 04/03/18 13:45 Vancomycin Trough 26 mcg/mL (5-10) H 04/01/18 05:16 Consult Discharge Plan - Plan Referrals: Bekah Ames CNP [Primary Care Provider] - Christina Yee CNP [Advanced Practice Nurse] -
[2018-04-06 03:32] LABS: Basophils % 0.3 %; Eosinophils % 0.1 %; Hematocrit 28.2 % (35.3-44.9); Immature Granulocytes % 0.4 % (0-4); Lymphocytes # 0.5 K/mcL (0.6-4.6); Lymphocytes % 6.6 %; Mean Corpuscular HGB Conc 31.9 g/dL (31.6-35.5); Mean Corpuscular Hemoglobin 28.9 pg (28.0-33.3); Mean Corpuscular Volume 90.7 fL (83.0-100.0); Mean Platelet Volume 10.4 fL (9.4-12.4); Monocytes # 0.8 K/mcL (0.0-1.3); Monocytes % 10.3 %; Neutrophils # 6.3 K/mcL (1.6-8.9); Platelet Count 210 K/mcL (140-400); Red Blood Count 3.11 M/mcL (3.82-4.97); Red Cell Distribution Width 14.6 % (11.5-14.5); Segmented Neutrophils % 82.3 %
[2018-04-06 03:51] LABS: Calcium 8.5 mg/dL (8.6-10.3); Potassium 4.4 mEq/L (3.5-5.1)
[2018-04-06] MEDS: *HR* Heparin 5,000 UNIT/ML VIAL SQ SCH ×2 (06:22→14:38)
--- NOTE | 2018-04-06 06:42 | Event Note ---
Date of Encounter: 04/06/18 Time of Encounter: 06:41 Nephrology Chart Review With relatively stable renal function, I will sign-off at this point. No new recommendations other than I recommend outpatient Nephrology follow up in about 2-4 weeks with a BMP to be checked in about 1 week after discharge. Thank you for having consulted the [facility] group. Please feel free to call if questions and/or re-consult if indicated.
[2018-04-06] MEDS: Lactobacillus 1 EACH CAP.SPRINK PO SCH (08:30)
[2018-04-06] MEDS: amLODIPine 5 MG TABLET PO SCH (08:30)
[2018-04-06] MEDS: Anastrozole 1 MG TABLET PO SCH (08:32)
[2018-04-06] MEDS: Cholecalciferol (D-3) 1,000 UNIT TABLET PO SCH (08:33)
[2018-04-06] MEDS: Ringers Solution, Lactated 1,000 ML IVC SCH (09:00)
[2018-04-06] MEDS: *HR* OxyCODONE Immed Rel 5 MG TABLET PO PRN (09:23)
[2018-04-06 10:41] VITALS: BP 136/75
--- NOTE | 2018-04-06 10:51 | Infectious Disease Progress No ---
Date of Encounter: 04/06/18 Time of Encounter: 10:48 - Assessment and Plan (1) Abscess of left upper extremity Current Visit: Yes Status: Acute Location: Left wrist. Causative organism: unclear. Status post I & D for cellulitis and early abscess 03/15/18. Intra-op cultures were negative (the patient had been on IV antibiotics for 3 days prior). Started on broad-spectrum antibiotics including Vanc and Zosyn. MRI cannot rule out septic arthritis or osteomyelitis. ESR 35, CRP 203. Orthopedics consulted and following. Status post I & D and I & D of the dorsal hand and wrist 03/27/[address] Cee. Operative note reviewed. ABscess noted intra-op. No septic arthritis or OM noted. Cultures (aerobic, anaerobic, and fungal) are no growth. AFB negative. Zosyn switched to Levaquin by the primary team. Continue Levaquin 500mg IV Q48H. Continue Vancomycin IV. Pharmacy to dose. Goal trough ~15. Random Vanc level 04/03/18 was 13. Duration of treatment depends on the clinical picture. Will likely plan to treat with IV antibiotics for two weeks post-op. Recommend Vancomycin and Levaquin if cultures remain negative. Plan to treat through 04/09/18. director volunteer services to assist with discharge planning. The patient has declined rehab placement and is planning to return home with the help of her daughter and home health. Monitor renal function and for drug toxicity and dose-adjust antibiotics. PICC line placed. (2) Cellulitis Current Visit: No Status: Acute Location: Left wrist. Causative organism unclear. MRI results noted. Orthopedics consulted. Continue antibiotics as above for now. Qualifiers: Site of cellulitis: extremity Site of cellulitis of extremity: upper extremity Laterality: left Qualified Code(s): L03.114 - Cellulitis of left upper limb (3) Transient synovitis, unspecified wrist Current Visit: Yes Status: Acute Qualifiers: Laterality: right Qualified Code(s): M67.331 - Transient synovitis, right wrist (4) HTN (hypertension) Current Visit: No Status: Chronic Qualifiers: Hypertension type: essential hypertension Qualified Code(s): I10 - Essential (primary) hypertension (5) Acute kidney injury Current Visit: Yes Status: Acute Serum creatinine improved. Likely secondary to Vanc toxicity, NSAIDs, and infection. Vanc dose adjusted. Continue to trend. Dose-adjust medications. Strict I's and O's. Nephrology consulted and signed off with plans to follow-up outpatient. (6) Nausea Current Visit: Yes Status: Acute Likely secondary to antibiotics. Improved. Management per the primary team. (7) Hypoxia Current Visit: Yes Status: Acute Improved. - Subjective Interval history: Patient seen and examined. No acute events noted overnight. Patient states she feels okay today. Status post irrigation and debridement of the left hand and wrist 03/27/[address] Cee. States she does have some mild pain in the left wrist that continues to improve. Denies any fevers or chills or rigors. Denies chest pain or cough, but reports some shortness of breath. Continues to have some nausea, but denies any vomiting or diarrhea. Reports soft stool this morning. Denies any abdominal pain or urinary complaints. She denies any oral thrush and no skin lesions. Infect Dis PN-Objective Data - Labs CBC & Chem 7: 04/06/18 03:17 04/06/18 03:17 Labs: Laboratory Results - last 24 hr 04/05/18 04/06/18 04/06/18 19:51 03:17 03:17 WBC 7.7 RBC 3.11 L Hgb 9.0 L Hct 28.2 L MCV 90.7 MCH 28.9 MCHC 31.9 RDW 14.6 H Plt Count 210 MPV 10.4 Immature Gran % 0.4 Seg Neutrophils % 82.3 Lymphocytes % 6.6 Monocytes % 10.3 Eosinophils % 0.1 Basophils % 0.3 Neutrophils # 6.3 Lymphocytes # 0.5 L Monocytes # 0.8 Eosinophils # 0.0 Basophils # 0.0 Sodium 132 L Potassium 4.4 Chloride 96 L Carbon Dioxide 26 BUN 19 Creatinine 2.29 H Est GFR ( Amer) 25 L Est GFR (Non-Af Amer) 20 L BUN/Creatinine Ratio 8 Glucose 108 H Calculated Osmolality 277 L Calcium 8.5 L Random Vancomycin 14 Cultures: Cultures 03/27/18 18:14 Anaerobic Culture - Final Left Wrist - Abscess No anaerobes were recovered. 03/26/18 13:04 Blood Culture - Final Peripheral Venipuncture No growth. Final report. 03/27/18 18:14 Wound Culture - Final Left Wrist - Abscess No growth. 03/27/18 18:14 Acid Fast Stain - Final Left Wrist - Abscess Serology 04/03/18 04/03/18 04/03/18 Range/Units 13:45 13:45 01:34 Urine Color Yellow (Yellow) Urine Clarity Cloudy A (Clear) Urine pH 6.0 (5.0-8.0) pH Units Ur Specific [place] 1.013 (1.010-1.025) Urine Protein Trace (Neg-Trace) mg/dL Urine Glucose (UA) Normal (Normal) mg/dL Urine Ketones Negative (Negative) mg/dL Urine Blood Negative (Negative) Urine Nitrite Negative (Negative) Urine Bilirubin Negative (Negative) Urine Urobilinogen Normal (Normal) mg/dL Ur Leukocyte Esterase Small H (Negative) Urine Microscopic RBC 5-15 H (0-3) per hpf Urine Microscopic WBC 5-15 H (0-3) per hpf Ur Eosinophil Smear 0 (None Seen) % Ur Squamous Epith Cells Many H (None-Few) per lpf Urine Bacteria None Seen (None-Few) per hpf Hyaline Casts None Seen (None-Few) per lpf Ur Culture Indicated? NO. A (NO) Urine Creatinine 87 mg/dL Urine Sodium 29.0 mEq/L Exam - Constitutional Vitals: Temp Pulse Resp BP Pulse Ox 97.8 F 99 16 136/75 96 04/06/18 10:40 04/06/18 10:40 04/06/18 10:40 04/06/18 10:40 04/06/18 10:40 General appearance: average body habitus, cooperative, no acute distress - Head Head exam: Present: atraumatic, normal inspection, normocephalic - Eye Eye exam: Present: EOMI, normal appearance, PERRL Pupils: Present: normal accommodation - ENT ENT exam: Present: mucous membranes moist - Neck Neck exam: Present: normal inspection - Respiratory Respiratory exam: Present: CTAB. Absent: rales, respiratory distress, rhonchi, wheezes - Cardiovascular Cardiovascular exam: Present: RRR, +S1, +S2 - GI/Abdominal GI/Abdominal exam: Present: normal bowel sounds, soft. Absent: distended, tenderness - Extremities Exam Extremities exam: Present: tenderness (left hand/wrist). Absent: normal inspection (Left hand/wrist dressing C/D/I. ROM improved. No surrounding erythema, warmth, or drainage noted.), pedal edema - Neurological Exam Neurological exam: Present: alert, oriented X3, no focal deficits - Psychiatric Psychiatric exam: Present: normal affect - Skin Skin exam: Present: dry, intact, normal color, warm Consult Discharge Plan - Plan Additional Instructions: FOLLOW-UP WITH ORTHPEDIC SURGERY -- IN 10-14 DAYS.. DRESSING CHANGES -- PER ORTHOPEDIC SURGERY/WOUND CARE.. Referrals: Bekah Ames [employer] [Primary Care Provider] - Christina Yee [employer] [Advanced Practice Nurse] - Prescriptions: Ondansetron ODT [Zofran ODT] 4 mg SL Q6HR PRN #10 tab.rapdis PRN Reason: Nausea And Vomiting HYDROcodone/Acet 5/325 mg [[place] 5-325 mg] 1 tab PO Q6H PRN 3 Days #12 tab PRN Reason: Pain Levofloxacin [Levaquin] 500 mg PO ONCE #1 tablet RX: Vancomycin [Vancocin] 500 each IV QAM 3 Days #3 vial - Attending Attestation I examined this patient and my medical decision-making was reviewed with the Resident Physician. I agree with the documented findings, disposition and treatment plan as described except to the extent set forth below.
--- NOTE | 2018-04-06 19:24 | Discharge Summary ---
- NOTES TO OUTPATIENT PROVIDER Notes to Outpatient Provider: The patient needs CBC and BMP checked in about 1 week. Orders not resulted at time of discharge: Pending orders 03/27/18 18:14 AFB Culture, Tissue [TB] Routine AFB Smear [TB] Routine Fungal Culture [MYC] Routine 04/06/18 06:00 EKG [ECG 12 lead ECG] [ECG] AM 0600 04/06/18 21:00 Vancomycin,Trough Timed 04/07/18 04:00 BMP [Basic Metabolic Panel] AM 0400 CBC [Complete Blood Count] [HEME] AM 0400 04/08/18 04:00 BMP [Basic Metabolic Panel] AM 0400 CBC [Complete Blood Count] [HEME] AM 0400 Date of Encounter: 04/06/18 Time of Encounter: : - Discharge Diagnosis (1) Cellulitis Priority: Primary Status: Acute Qualifiers: Site of cellulitis: extremity Site of cellulitis of extremity: upper extremity Laterality: left Qualified Code(s): L03.114 - Cellulitis of left upper limb (2) Acute kidney injury Priority: Secondary Status: Acute (3) HTN (hypertension) Priority: Secondary Status: Chronic Qualifiers: Hypertension type: essential hypertension Qualified Code(s): I10 - Essential (primary) hypertension (4) HLD (hyperlipidemia) Priority: Secondary Status: Chronic Qualifiers: Hyperlipidemia type: unspecified Qualified Code(s): E78.5 - Hyperlipidemia, unspecified (5) Mood disorder Priority: Secondary Status: Chronic (6) Acute respiratory failure with hypoxia Priority: Secondary Status: Resolved Hospital course: HOSPITAL COURSE: The patient was admitted for treatment of cellulitis/abscess of left wrist/dorsal portion of left hand. Orthopedic surgery and infectious diseases were consulted. The patient was started on IV vancomycin and IV Zosyn. IV Zosyn was changed to IV Levaquin before the discharge. The incision and drainage of the left wrist/hand was done. Cultures from the surgery did not grow any particular organisms. Blood culture was done on one occasiondid not grow any organisms. The redness and swelling subsided. We decided to [facility] facility, where she will continue daily dressings and antibiotics. The antibiotics will be continued through April 09. During this hospitalization this patient developed acute kidney injury. Likely secondary to infection, treatment with vancomycin and nausea/vomiting we observed for a short period of time. Nephrology was consulted. Her highest creatinine was 2.23; it is 2.19 at discharge. She makes good amounts of urine. CONDITION AT DISCHARGE: The patient feels good. Denies chest pain and difficulty breathing. Denies pain in the area of left wrist/hand. The swelling and redness in that area subsided. The wound is showing good granulation tissue. Skin: Free of rash and discoloration. Respiratory: Normal breath sounds with no crackles and wheezes bilaterally. CV: Heart is regular with no gallop or murmur. GI: Abdomen is flat and soft with no palpable mass or visceromegaly. Neuro exam: There is no focal deficits. Normal speech, swallowing and gait. SEE DISCHARGE ORDERS/MEDICATIONS.. Discharge discussed with: patient, nurse, case management - Time Spent with Patient Total time spent providing and/or coordinating discharge services: Greater than 30 minutes (45 minutes..) - Discharge Medications Prescriptions: Ondansetron ODT [Zofran ODT] 4 mg SL Q6HR PRN #10 tab.rapdis PRN Reason: Nausea And Vomiting HYDROcodone/Acet 5/325 mg [[place] 5-325 mg] 1 tab PO Q6H PRN 3 Days #12 tab PRN Reason: Pain Levofloxacin [Levaquin] 500 mg PO ONCE #1 tablet Vancomycin [Vancocin] 500 each IV QAM 3 Days #3 vial Home Medications: Anastrozole [Arimidex] 1 mg PO DAILY 10/22/15 [History] Sertraline [Zoloft] 150 mg PO DAILY 10/22/15 [History] Simvastatin [Zocor] 20 mg PO HS 10/22/15 [History] amLODIPine [Norvasc] 5 mg PO DAILY 10/22/15 [History] Buspirone HCl [Buspar] 7.5 mg PO BID 03/04/18 [History] Calcium Carbonate/Vitamin D3 [Calcium 600 + Vit D Tablet] 1 each PO BID 03/04/18 [History] Cholecalciferol (Vitamin D3) [Vitamin D3] 1,000 unit PO DAILY 03/04/18 [History] Donepezil HCl [Aricept] 5 mg PO HS 03/04/18 [History] Alendronate Sodium [Fosamax] 70 mg PO QWEEK 03/12/18 [History] Latanoprost [Xalatan] 1 drop BOTH EYES HS 03/12/18 [History] Docusate [Colace] 100 mg PO DAILY capsule 04/06/18 [Rx] HYDROcodone/Acet 5/325 mg [[place] 5-325 mg] 1 tab PO Q6H PRN 3 Days #12 tab 04/06/18 [Rx] Lactobacillus [Culturelle] 2 each PO DAILY cap.sprink 04/06/18 [Rx] Levofloxacin [Levaquin] 500 mg PO ONCE #1 tablet 04/06/18 [Rx] Ondansetron ODT [Zofran ODT] 4 mg SL Q6HR PRN #10 tab.rapdis 04/06/18 [Rx] Vancomycin [Vancocin] 500 each IV QAM 3 Days #3 vial 04/06/18 [Rx] Allergies/Adverse Reactions: Allergy/AdvReac Type Severity Reaction Status Date / Time No Known Allergies Allergy Verified 03/04/18 12:09 Date of admission: 03/26/18 14:20 Primary care physician: ANSLEY Ramirez Consults: 03/26/18 12:50 Consult to Infectious Diseases [CONS] Routine Consulting Provider: Infectious Disease [place] Reason for Consult: wrist cellulitis has failed multiple therapies, orthopedics Dr. Martin requested admission adn ID consultation Call Completed: No 03/28/18 13:14 Consult to Invasive Line Access Team [CONS] Routine Reason for Consult: poor access Line Type: EPIV 03/30/18 08:18 Consult to Invasive Line Access Team [CONS] Routine Reason for Consult: Picc Line Insertion Line Type: PICC 03/30/18 15:51 Consult to [employer]er [CONS] Routine Reason for SW Consult: IV antibiotics 04/02/18 11:47 PT [Consult to Physical Therapy] [CONS] Routine Comment: Evaluate, develop and implement POC Reason for Consult: eval and treat Does patient have active BEDREST order?: No Is patient medically & hemodynamically stable?: Yes 04/02/18 11:48 OT [Consult to Occupational Therapy] [CONS] Routine Comment: Evaluate, develop and implement POC Reason for Consult: eval and treat Does patient have active BEDREST order?: No Is patient medically & hemodynamically stable?: Yes 04/02/18 15:28 Consult to Nephrology [CONS] Routine Consulting Provider: Kidney Tahira/ORIMI/MAGALIE/DOUG Reason for Consult: PAM Call Completed: Yes Discharging clinician: Donovan Hernandez Anticipated date of discharge: 04/06/18 - Constitutional Vitals: Temp Pulse Resp BP Pulse Ox 97.8 F 99 16 136/75 96 04/06/18 10:40 04/06/18 10:40 04/06/18 10:40 04/06/18 10:40 04/06/18 10:40 General appearance: Present: A&O X 3, no acute distress, answers questions ap propriately Exam: xx - Patient Status Disposition: Transfer Hospital Swing Bed Functional capacity at discharge: uses cane/walker (needs assistance..) Overall status at discharge: patient is progressing back to baseline - Discharge Instructions Follow Up With: Bekah Ames CNP [Primary Care Provider] - Christina Yee CNP [Advanced Practice Nurse] - Additional Instructions: DISCHARGE INSTRUCTIONS Dr. Cee DISCHARGE DIAGNOSIS/PROCEDURE I&D of the left wrist ACTIVITY: Avoid aggressive activities with arm in which you were operated. Okay to move your fingers which will be good exercise. Consult occupational therapy for motion exercises, weightbearing as tolerated on the left upper extremity. WOUND CARE: Change the dressing daily and cleanse with warm, soapy water, rinse clean and rewrap with dry gauze. MEDICATIONS: Antibiotics: Continue antibiotics per the infectious disease team as recommended upon discharge FOLLOW-UP Follow-up with Dr. Cee or Caterina Temple PA-C at the office 1 week from the time of discharge for a wound evaluation. Call the office at [phone] to schedule or confirm your appointment. WHEN TO CALL THE DOCTOR OR WHEN TO SEEK CARE BEFORE YOUR APPOINTMENT 1. Excess swelling or increased numbness not made better by elevating the hand and moving the fingers. 2. Uncontrolled pain. 3. A color change in your hand or fingers. 4. Worsening redness or drainage. 5. Fevers over 100.5 degrees F or 38.1 degrees C. 6. Any symptoms that bring concern to you. - Diet and Activity Activity: ambulate only with your walker (wth assistance..) Diet: low fat, low cholesterol - VTE Deep Vein Thrombosis/Pulmonary Embolism Present on Admission: No
--- NOTE | 2018-04-06 19:26 | Physician Discharge Referral ---
ExtendedCare Referral Info Transfer To: [facility] Provider in Charge: Kristopher Hernandez Provider in Charge after Transfer: Other (A SNF PHYSICIAN..) - Diagnosis (1) Cellulitis Priority: Primary Status: Acute (2) Acute kidney injury Priority: Secondary Status: Acute (3) HTN (hypertension) Priority: Secondary Status: Chronic (4) HLD (hyperlipidemia) Priority: Secondary Status: Chronic (5) Mood disorder Priority: Secondary Status: Chronic (6) Acute respiratory failure with hypoxia Priority: Secondary Status: Resolved - Transfer Medications Prescriptions: Ondansetron ODT [Zofran ODT] 4 mg SL Q6HR PRN #10 tab.rapdis PRN Reason: Nausea And Vomiting HYDROcodone/Acet 5/325 mg [[place] 5-325 mg] 1 tab PO Q6H PRN 3 Days #12 tab PRN Reason: Pain Levofloxacin [Levaquin] 500 mg PO ONCE #1 tablet Vancomycin [Vancocin] 500 each IV QAM 3 Days #3 vial Home Medications: Anastrozole [Arimidex] 1 mg PO DAILY 10/22/15 [History] Sertraline [Zoloft] 150 mg PO DAILY 10/22/15 [History] Simvastatin [Zocor] 20 mg PO HS 10/22/15 [History] amLODIPine [Norvasc] 5 mg PO DAILY 10/22/15 [History] Buspirone HCl [Buspar] 7.5 mg PO BID 03/04/18 [History] Calcium Carbonate/Vitamin D3 [Calcium 600 + Vit D Tablet] 1 each PO BID 03/04/18 [History] Cholecalciferol (Vitamin D3) [Vitamin D3] 1,000 unit PO DAILY 03/04/18 [History] Donepezil HCl [Aricept] 5 mg PO HS 03/04/18 [History] Alendronate Sodium [Fosamax] 70 mg PO QWEEK 03/12/18 [History] Latanoprost [Xalatan] 1 drop BOTH EYES HS 03/12/18 [History] Docusate [Colace] 100 mg PO DAILY capsule 04/06/18 [Rx] HYDROcodone/Acet 5/325 mg [[place] 5-325 mg] 1 tab PO Q6H PRN 3 Days #12 tab 04/06/18 [Rx] Lactobacillus [Culturelle] 2 each PO DAILY cap.sprink 04/06/18 [Rx] Levofloxacin [Levaquin] 500 mg PO ONCE #1 tablet 04/06/18 [Rx] Ondansetron ODT [Zofran ODT] 4 mg SL Q6HR PRN #10 tab.rapdis 04/06/18 [Rx] Vancomycin [Vancocin] 500 each IV QAM 3 Days #3 vial 04/06/18 [Rx] Allergies/Adverse Reactions: Allergy/AdvReac Type Severity Reaction Status Date / Time No Known Allergies Allergy Verified 03/04/18 12:09 - Respiratory Orders Other (2 l/min for pulse-ox below 90%..) Smoking Cessation: Smoking cessation has been advised. For more information, call the [employer] Tobacco Quit Line at 1-065-BIBT-NOW. - Mobility Orders Other (WITH A WALKER/ASSISTANCE..) - Rehabiliation Orders Rehab Potential: Fair - Diet Orders Cardiac CERTIFICATION: I certify that the transfer of the above named patient to an Extended Care Facility is necessary for the continuing treatment of the diagnosis listed. The above information is true and accurate reflection of patient's current c ondition. Confidential - Redisclosure prohibited without a patient's written consent.
--- NOTE | 2018-04-06 19:40 | Orthopedics Progress Note ---
Date of Encounter: 04/06/18 Time of Encounter: 17:29 - Assessment and Plan (1) Cellulitis Current Visit: No Status: Acute Qualifiers: Site of cellulitis: extremity Site of cellulitis of extremity: upper extremity Laterality: left Qualified Code(s): L03.114 - Cellulitis of left upper limb Subjective Principal diagnosis: PAM, cellulitis Interval history: S: Pain continues to improve to the left wrist and hand O: Afebrile on the vital signs are stable Incision is healing well with healthy-appearing granulation tissue at the wound bed Minimal serosanguineous drainage. No purulence. Improvement, near complete resolution in the erythema and swelling Pain with motion of the wrist and digits She can grossly flex and extend the digits with limitation due to pain The fingertips are all grossly sensate and well-perfused, and the radial artery pulse is 2+. A: Post repeat I and D of the left wrist P: No fluctuance or concern for further abscess No plans for further operative I and D at this time. Continue IV antibiotics per primary team. Local wound care with twice daily warm, soapy soaks Keep wound covered Elevation of the left upper extremity Digital motion exercises under the direction of therapy Objective Vital signs: Vital Signs Temp Pulse Resp BP Pulse Ox 04/06/18 10:40 97.8 F 99 16 136/75 96 04/06/18 06:49 97.8 F 81 16 127/74 94 04/06/18 03:14 99.0 F 86 16 131/69 98 04/05/18 18:56 98.4 F 85 15 137/79 98 Intake and Output 04/06/18 04/06/18 04/06/18 07:59 15:59 23:59 Intake Total 100 / 100 1480 / 1480 Output Total 200 / 200 Balance 100 / 100 1280 / 1280 Intake: IV Fluids 100 / 100 1000 / 1000 Lactated Ringers 1,000 ML @ 50 1000 / 1000 mls/hr IVC .Q20H [facility] Rx#: [id number] Levaquin Premix 500mg/100mL 500 100 / 100 mg In 100 ml @ 100 mls/hr IVPB Q48H [facility] Rx#:[id number] Oral 480 / 480 Output: Urine 200 / 200 Other: Meal Lunch Percent of Meal Consumed 50% Stool Size Small Stool Consistency loose Stool Color Brown # Voids 1 1 # Bowel Movements 1 Weight 82.3 kg Patient Weight 04/06/18 23:59 Weight 82.3 kg - Labs CBC & BMP: 04/06/18 03:17 04/06/18 03:17 Labs: Abnormal lab results RBC 3.11 M/mcL (3.82-4.97) L 04/06/18 03:17 Hgb 9.0 g/dL (11.5-15.4) L 04/06/18 03:17 Hct 28.2 % (35.3-44.9) L 04/06/18 03:17 RDW 14.6 % (11.5-14.5) H 04/06/18 03:17 Lymphocytes # 0.5 K/mcL (0.6-4.6) L 04/06/18 03:17 ESR 33 mm/hr (0-15) H 04/01/18 19:56 PT 15.1 Seconds (9.4-12.1) H 03/26/18 13:04 Sodium 132 mEq/L (136-145) L 04/06/18 03:17 Chloride 96 mEq/L (98-107) L 04/06/18 03:17 Creatinine 2.29 mg/dL (0.60-1.20) H 04/06/18 03:17 Est GFR ( Amer) 25 (> 60) L 04/06/18 03:17 Est GFR (Non-Af Amer) 20 (> 60) L 04/06/18 03:17 Glucose 108 mg/dL (70-105) H 04/06/18 03:17 POC Glucose 67 mg/dL (70-99) L 03/27/18 17:24 Calculated Osmolality 277 (280-300) L 04/06/18 03:17 Calcium 8.5 mg/dL (8.6-10.3) L 04/06/18 03:17 Creatine Kinase 13 Units/L (30-223) L 04/03/18 08:37 C-Reactive Protein 184 mg/L (Less than 10) H 04/01/18 19:56 Serum Total Protein 5.9 g/dL (6.4-8.9) L 03/26/18 13:04 Albumin 2.9 g/dL (3.5-5.7) L 03/26/18 13:04 Albumin/Globulin Ratio 1.0 (1.1-2.2) L 03/26/18 13:04 Urine Clarity Cloudy (Clear) A 04/03/18 13:45 Ur Leukocyte Esterase Small (Negative) H 04/03/18 13:45 Urine Microscopic RBC 5-15 per hpf (0-3) H 04/03/18 13:45 Urine Microscopic WBC 5-15 per hpf (0-3) H 04/03/18 13:45 Ur Squamous Epith Cells Many per lpf (None-Few) H 04/03/18 13:45 Ur Culture Indicated? NO. (NO) A 04/03/18 13:45 Vancomycin Trough 26 mcg/mL (5-10) H 04/01/18 05:16 - VTE Deep Vein Thrombosis/Pulmonary Embolism Present on Admission: No Consult Discharge Plan - Plan Additional Instructions: DISCHARGE INSTRUCTIONS Dr. Cee DISCHARGE DIAGNOSIS/PROCEDURE I&D of the left wrist ACTIVITY: Avoid aggressive activities with arm in which you were operated. Okay to move your fingers which will be good exercise. Consult occupational therapy for motion exercises, weightbearing as tolerated on the left upper extremity. WOUND CARE: Change the dressing daily and cleanse with warm, soapy water, rinse clean and rewrap with dry gauze. MEDICATIONS: Antibiotics: Continue antibiotics per the infectious disease team as recommended upon discharge FOLLOW-UP Follow-up with Dr. Cee or Caterina Temple PA-C at the office 1 week from the time of discharge for a wound evaluation. Call the office at [phone] to schedule or confirm your appointment. WHEN TO CALL THE DOCTOR OR WHEN TO SEEK CARE BEFORE YOUR APPOINTMENT 1. Excess swelling or increased numbness not made better by elevating the hand and moving the fingers. 2. Uncontrolled pain. 3. A color change in your hand or fingers. 4. Worsening redness or drainage. 5. Fevers over 100.5 degrees F or 38.1 degrees C. 6. Any symptoms that bring concern to you. Referrals: Bekah Ames CNP [Primary Care Provider] - Christina Yee CNP [Advanced Practice Nurse] - Prescriptions: HYDROcodone/Acet 5/325 mg [[place] 5-325 mg] 1 tab PO Q6H PRN 3 Days #12 tab PRN Reason: Pain Levofloxacin [Levaquin] 500 mg PO ONCE #1 tablet Ondansetron ODT [Zofran ODT] 4 mg SL Q6HR PRN #10 tab.rapdis PRN Reason: Nausea And Vomiting Vancomycin [Vancocin] 500 each IV QAM 3 Days #3 vial
== END 2018-04-06 17:38 | disposition other institution (70) | DRG 579 ==
LOC: 3ANU → SUATTDRO 14:20 → 3ANU 03-30 17:21
PROVIDERS: ADMIT Internal Medicine; ATTEND Internal Medicine

== ENCOUNTER 2019-02-02 19:32 | Inpatient (IN) ==
[2019-02-02] MEDS ORDERED: Naloxone 0.4 MG/ML INJ IVP PRN (23:46)
[2019-02-02] MEDS ORDERED: Ondansetron 4 MG/2 ML VIAL IVP PRN (23:46)
[2019-02-02] MEDS ORDERED: Albuterol 2.5 MG/3 ML NEBULIZER IH PRN (23:46)
[2019-02-03] MEDS: Ipratropium/Albuterol Neb 3 ML IH SCH ×5 (00:46→21:00)
[2019-02-03] MEDS: methylPREDNISolone 125 MG/2 ML VIAL IVP SCH ×2 (01:04→08:02)
[2019-02-03 02:22] LABS: Hematocrit 35.6 % (35.3-44.9); Hemoglobin 11.2 g/dL (11.5-15.4); Immature Granulocytes % 0.4 % (0-4); Lymphocytes # 0.1 K/mcL (0.6-4.6); Lymphocytes % 5.3 %; Mean Corpuscular HGB Conc 31.5 g/dL (31.6-35.5); Mean Corpuscular Hemoglobin 30.8 pg (28.0-33.3); Mean Corpuscular Volume 97.8 fL (83.0-100.0); Mean Platelet Volume 11.7 fL (9.4-12.4); Monocytes # 0.1 K/mcL (0.0-1.3); Monocytes % 2.9 %; Platelet Count 122 K/mcL (140-400); Red Blood Count 3.64 M/mcL (3.82-4.97); Red Cell Distribution Width 13.6 % (11.5-14.5); Segmented Neutrophils % 91.4 %; White Blood Count 2.5 K/mcL (4.3-11.1)
[2019-02-03 02:26] LABS: Neutrophils # 2.3 K/mcL (1.6-8.9)
[2019-02-03 02:28] LABS: INR 1.3; Prothrombin Time 14.2 Seconds (9.4-12.1)
[2019-02-03 02:31] LABS: Activated Partial Thrombo Time 29.4 Seconds (26.0-36.0)
[2019-02-03 02:40] LABS: Alanine Aminotransferase 24 Units/L (7-52); Albumin 3.8 g/dL (3.5-5.7); Albumin/Globulin Ratio 1.7 (1.1-2.2); Alkaline Phosphatase 55 Units/L (34-104); Aspartate Amino Transferase 19 Units/L (13-39); BUN/Creatinine Ratio 24 (6-26); Bilirubin,Total 0.4 mg/dL (0.3-1.0); Blood Urea Nitrogen 16 mg/dL (8-23); Calcium 8.8 mg/dL (8.6-10.3); Carbon Dioxide 28 mEq/L (23-29); Chloride 106 mEq/L (98-107); Globulin 2.3 g/dL (2.4-3.5); Glucose 240 mg/dL (70-105); Magnesium 1.7 mg/dL (1.6-2.6); Osmolality,Calculated 301 (280-300); Potassium 4.4 mEq/L (3.5-5.1); Sodium 141 mEq/L (136-145); Total Protein 6.1 g/dL (6.4-8.9); eGFR For African Americans > 60 (> 60); eGFR For Non-African Americans > 60 (> 60)
[2019-02-03 02:47] LABS: Platelet Estimate Slight Decrease (Normal); Polychromasia 1+ (Not Present)
[2019-02-03] MEDS: *HR* Heparin 5,000 UNIT/ML VIAL SQ SCH ×2 (05:33→17:39)
[2019-02-03] MEDS: cefTRIAXone 2,000 MG in Water for inj. (sterile) 20 ML IVP SCH (08:01)
[2019-02-03] MEDS: Azithromycin 500 MG in 0.9 % Sodium Chloride 250 ML IVPB SCH (08:02)
[2019-02-03] MEDS ORDERED: Ondansetron 4 MG/2 ML VIAL IVP ONE (11:35)
[2019-02-03] MEDS: predniSONE 20 MG TABLET PO SCH (12:11)
[2019-02-03] MEDS: Acetaminophen 325 MG TABLET PO PRN ×2 (14:33→22:27)
[2019-02-04] MEDS: Ipratropium/Albuterol Neb 3 ML IH SCH ×4 (03:16→21:41)
[2019-02-04 04:57] LABS: Hematocrit 34.5 % (35.3-44.9); Hemoglobin 10.9 g/dL (11.5-15.4); Immature Granulocytes % 0.5 % (0-4); Lymphocytes # 0.4 K/mcL (0.6-4.6); Lymphocytes % 6.2 %; Mean Corpuscular HGB Conc 31.6 g/dL (31.6-35.5); Mean Corpuscular Hemoglobin 31.2 pg (28.0-33.3); Mean Corpuscular Volume 98.9 fL (83.0-100.0); Mean Platelet Volume 11.4 fL (9.4-12.4); Monocytes # 0.4 K/mcL (0.0-1.3); Monocytes % 6.4 %; Neutrophils # 5.3 K/mcL (1.6-8.9); Platelet Count 125 K/mcL (140-400); Red Blood Count 3.49 M/mcL (3.82-4.97); Red Cell Distribution Width 13.7 % (11.5-14.5); Segmented Neutrophils % 86.9 %
[2019-02-04 05:03] LABS: White Blood Count 6.1 K/mcL (4.3-11.1)
[2019-02-04 05:05] LABS: INR 1.1; Prothrombin Time 12.8 Seconds (9.4-12.1)
[2019-02-04 05:15] LABS: BUN/Creatinine Ratio 38 (6-26); Blood Urea Nitrogen 25 mg/dL (8-23); Carbon Dioxide 29 mEq/L (23-29); Chloride 107 mEq/L (98-107); Glucose 135 mg/dL (70-105); Lactate Dehydrogenase 157 Units/L (140-271); Osmolality,Calculated 298 (280-300); Potassium 4.2 mEq/L (3.5-5.1); Sodium 141 mEq/L (136-145); Total Protein 5.7 g/dL (6.4-8.9); eGFR For African Americans > 60 (> 60); eGFR For Non-African Americans > 60 (> 60)
[2019-02-04] MEDS: *HR* Heparin 5,000 UNIT/ML VIAL SQ SCH ×2 (06:06→17:52)
[2019-02-04] MEDS: Anastrozole 1 MG TABLET PO SCH (08:50)
[2019-02-04] MEDS: amLODIPine 5 MG TABLET PO SCH (08:52)
[2019-02-04] MEDS: predniSONE 20 MG TABLET PO SCH (08:52)
[2019-02-04] MEDS: cefTRIAXone 2,000 MG in Water for inj. (sterile) 20 ML IVP SCH (08:52)
[2019-02-04] MEDS: Azithromycin 500 MG in 0.9 % Sodium Chloride 250 ML IVPB SCH (09:06)
[2019-02-04] MEDS ORDERED: NON-FORMULARY MEDICATION 1 EACH EACH (Alendronate Sodium [Fosamax] 70 MG) PO SCH (11:15)
[2019-02-04 16:01] LABS: Glucose,Pleural Fluid 126 mg/dL (No Ref Range); LDH,Pleural Fluid 79 Units/L (No Ref Range); Total Protein,Pleural Fluid < 3.0 g/dL
[2019-02-04 16:11] LABS: RBC,Pleural Fluid < 0.002 M/mcL
[2019-02-04 16:59] LABS: Appearance of Pleural Fl Clear (Clear)
[2019-02-04 17:00] LABS: Basophils,Pleural Fluid 0 %; Eosinophils,Pleural Fluid 0 %
[2019-02-04] MEDS: Furosemide 40 MG/4 ML VIAL IVP SCH ×2 (17:52→19:31)
[2019-02-04] MEDS: MethylPREDNISolone 40 MG/ML VIAL IVP SCH (17:53)
[2019-02-05] MEDS: Ipratropium/Albuterol Neb 3 ML IH SCH ×4 (03:32→21:47)
[2019-02-05] MEDS: MethylPREDNISolone 40 MG/ML VIAL IVP SCH ×2 (06:44→18:33)
[2019-02-05] MEDS: *HR* Heparin 5,000 UNIT/ML VIAL SQ SCH ×2 (06:45→18:33)
[2019-02-05 07:02] LABS: BUN/Creatinine Ratio 27 (6-26); Blood Urea Nitrogen 14 mg/dL (8-23); Calcium 8.8 mg/dL (8.6-10.3); Carbon Dioxide 30 mEq/L (23-29); Chloride 107 mEq/L (98-107); Glucose 100 mg/dL (70-105); Osmolality,Calculated 297 (280-300); Potassium 4.2 mEq/L (3.5-5.1); Sodium 143 mEq/L (136-145); eGFR For African Americans > 60 (> 60); eGFR For Non-African Americans > 60 (> 60)
[2019-02-05] MEDS: cefTRIAXone 2,000 MG in Water for inj. (sterile) 20 ML IVP SCH (09:39)
[2019-02-05] MEDS: amLODIPine 5 MG TABLET PO SCH (09:39)
[2019-02-05] MEDS: Anastrozole 1 MG TABLET PO SCH (09:39)
[2019-02-05] MEDS: Furosemide 40 MG/4 ML VIAL IVP SCH ×2 (09:39→22:19)
[2019-02-05] MEDS: Azithromycin 250 MG TABLET PO SCH (09:39)
[2019-02-06] MEDS: Ipratropium/Albuterol Neb 3 ML IH SCH ×3 (04:12→15:20)
[2019-02-06] MEDS: *HR* Heparin 5,000 UNIT/ML VIAL SQ SCH (05:08)
[2019-02-06] MEDS: MethylPREDNISolone 40 MG/ML VIAL IVP SCH (05:09)
[2019-02-06 05:18] LABS: BUN/Creatinine Ratio 26 (6-26); Blood Urea Nitrogen 18 mg/dL (8-23); Calcium 9.7 mg/dL (8.6-10.3); Carbon Dioxide 35 mEq/L (23-29); Chloride 96 mEq/L (98-107); Glucose 113 mg/dL (70-105); Osmolality,Calculated 293 (280-300); Sodium 140 mEq/L (136-145); eGFR For African Americans > 60 (> 60); eGFR For Non-African Americans > 60 (> 60)
[2019-02-06 07:22] VITALS: BP 151/96
[2019-02-06] MEDS: amLODIPine 5 MG TABLET PO SCH (10:20)
[2019-02-06] MEDS: Anastrozole 1 MG TABLET PO SCH (10:20)
[2019-02-06] MEDS: cefTRIAXone 2,000 MG in Water for inj. (sterile) 20 ML IVP SCH (10:21)
[2019-02-06] MEDS: Furosemide 40 MG/4 ML VIAL IVP SCH (10:21)
[2019-02-06] MEDS: Azithromycin 250 MG TABLET PO SCH (10:21)
[2019-02-06 18:54] LABS: Fluid Source for Albumin PLEURAL FLUID
== END 2019-02-06 19:40 | disposition home health service (06) | DRG 193 ==
LOC: 2NENU → SUATTDRO 23:46
PROVIDERS: ADMIT Pediatrics; ATTEND Family Medicine

== ENCOUNTER 2020-08-09 15:13 | Observation (INO) ==
[2020-08-09] MEDS ORDERED: Naloxone 0.4 MG/ML INJ IVP PRN (17:36)
[2020-08-09] MEDS ORDERED: Ondansetron ODT 4 MG TAB.RAPDIS SL PRN (17:42)
[2020-08-09] MEDS ORDERED: Melatonin 3 MG TABLET PO PRN (17:42)
[2020-08-09] MEDS ORDERED: MOM Conc 10 ML UD.LIQ PO PRN (17:42)
[2020-08-09] MEDS ORDERED: Acetaminophen 325 MG TABLET PO PRN (17:42)
[2020-08-09] MEDS ORDERED: Perflutren Lipid Microsphere 1.3 ML in 0.9 % Sodium Chloride 8.7 ML IVP PRN (17:48)
[2020-08-09] MEDS ORDERED: Furosemide 20 MG/2 ML VIAL IVP ONE (19:00)
[2020-08-10 02:48] LABS: Hemoglobin 12.6 g/dL (11.5-15.4)
[2020-08-10 02:50] LABS: Hematocrit 36.8 % (35.3-44.9); Immature Platelets 5.6 % (1.1-6.1); Mean Corpuscular HGB Conc 34.2 g/dL (31.6-35.5); Mean Corpuscular Volume 90.4 fL (83.0-100.0); Mean Platelet Volume 11.2 fL (9.4-12.4); Red Blood Count 4.07 M/mcL (3.82-4.97)
[2020-08-10 03:09] LABS: BUN/Creatinine Ratio 23 (6-26); Blood Urea Nitrogen 14 mg/dL (8-23); Calcium 8.7 mg/dL (8.6-10.3); Carbon Dioxide 27 mEq/L (23-29); Chloride 104 mEq/L (98-107); Glucose 99 mg/dL (70-105); Osmolality,Calculated 289 (280-300); Potassium 3.5 mEq/L (3.5-5.1); Sodium 139 mEq/L (136-145); eGFR For African Americans > 60 (> 60); eGFR For Non-African Americans > 60 (> 60)
[2020-08-10] MEDS: *HR* Heparin 5,000 UNIT/ML VIAL SQ SCH ×2 (05:28→17:20)
[2020-08-10] MEDS ORDERED: lisinopriL 5 MG TABLET PO SCH (09:00)
[2020-08-10] MEDS: Furosemide 20 MG/2 ML VIAL IVP SCH ×2 (09:22→17:20)
[2020-08-10] MEDS ORDERED: *HR* HYDROcodone/Acet 7.5/325 mg TABLET PO PRN (11:16)
[2020-08-10] MEDS ORDERED: amLODIPine 5 MG TABLET PO SCH (11:30)
[2020-08-10] MEDS: (Cyanocobalamin (Vitamin B-12) [Vitamin B-12] 100 MCG PO SCH (12:30)
[2020-08-10] MEDS: Anastrozole 1 MG TABLET PO SCH (12:38)
[2020-08-10] MEDS: carvediloL 6.25 MG TABLET PO SCH ×2 (12:38→17:20)
[2020-08-11] MEDS: *HR* Heparin 5,000 UNIT/ML VIAL SQ SCH (05:10)
[2020-08-11] MEDS ORDERED: lisinopriL 10 MG TABLET PO SCH (08:00)
[2020-08-11] MEDS: (Cyanocobalamin (Vitamin B-12) [Vitamin B-12] 100 MCG PO SCH (08:09)
[2020-08-11] MEDS ORDERED: carvediloL 6.25 MG TABLET PO SCH (08:10)
[2020-08-11] MEDS: carvediloL 6.25 MG TABLET PO SCH (08:33)
[2020-08-11] MEDS: Anastrozole 1 MG TABLET PO SCH (08:44)
[2020-08-11] MEDS ORDERED: Furosemide 20 MG TABLET PO SCH (09:00)
[2020-08-11 11:39] VITALS: BP 112/63
== END 2020-08-11 15:50 | disposition home or self-care (01) ==
LOC: 3BNU → SUATTDRO 16:58
PROVIDERS: ADMIT Family Medicine; ATTEND Internal Medicine